=== PATIENT | female | born 1975 | race Caucasian/White ===

== ENCOUNTER 2016-09-15 10:33 | Outpatient (CLI) | payer OTHER | END 2016-09-15 10:34 | disposition home or self-care (01) | DX: R10.9 Unspecified abdominal pain (principal) ==

== ENCOUNTER 2016-10-07 10:35 | Emergency (ER) | payer OTHER ==
[2016-10-07] MEDS ORDERED: HYOSCYAMINE SL 0.125 MG TABLET SL STA (12:57)
[2016-10-07] MEDS ORDERED: HYDROcod/ACETAM 5/325 MG TABLET PO STA (13:40)
== END 2016-10-07 13:51 | disposition home or self-care (01) ==
DX: R10.84 Generalized abdominal pain (principal); R19.7 Diarrhea, unspecified
CPT/HCPCS: 36415; 80053; 83690; 85025; 99283; A9270

== ENCOUNTER 2016-10-17 09:29 | Outpatient (CLI) | payer OTHER | END 2016-10-17 09:30 | disposition home or self-care (01) | DX: R92.1 Mammographic calcification found on diagnostic imaging of breast (principal) ==

== ENCOUNTER 2016-10-23 12:19 | Outpatient (CLI) | payer OTHER ==
[2016-10-23] MEDS ORDERED: BUPIVACAINE 0.25%-EPI 1:200000 PF 30 ML VIAL SUBQ ONE (13:55)
[2016-10-23] MEDS ORDERED: BUFFERED LIDOCAINE 10 ML SYRINGE IU ONE (13:55)
== END 2016-10-23 12:20 | disposition home or self-care (01) ==
DX: R92.1 Mammographic calcification found on diagnostic imaging of breast (principal)

== ENCOUNTER 2017-04-28 17:07 | Outpatient (CLI) | payer OTHER | END 2017-04-28 17:08 | disposition home or self-care (01) | LOC: LAB 17:07 | PROVIDERS: ATTEND Family Medicine | DX: R07.9 Chest pain, unspecified (principal) | CPT/HCPCS: 36415; 84484; 85379 ==

== ENCOUNTER 2017-05-05 14:08 | Outpatient (CLI) | payer OTHER ==
--- NOTE | 2017-05-05 19:22 | Mammography Report ---
DIGITAL BILATERAL DIAGNOSTIC MAMMOGRAPHY: 05/05/2017 COMPARISON: 10/23/2016, 02/15/2016, 02/01/2016, 01/04/2015. TECHNIQUE: Bilateral CC and MLO views with additional magnification views of the left breast. FINDINGS: The breast tissue is heterogeneously dense. There is a stereotactic biopsy clip in the left upper outer quadrant adjacent to faint punctate calcifications. No dominant mass, architectural distortion, skin thickening, or suspicious new calcifications. IMPRESSION: STATUS POST LEFT STEREOTACTIC BIOPSY FOR BENIGN CALCIFICATIONS. NO SIGNIFICANT NEW FINDINGS. BI-RADS 2, BENIGN. SUGGEST FOLLOWUP BILATERAL MAMMOGRAPHY IN 1 YEAR. STANDARD QUALIFYING STATEMENTS 1. This examination was reviewed with the aid of Computer-Aided Detection (CAD). 2. A negative or benign imaging report should not delay biopsy if clinically suspicious findings are present. Consider surgical consultation if warranted. More than 5% of cancers are not identified by imaging. 3. Dense breasts may obscure an underlying neoplasm. JOB #: [id number] EXT JOB #: [id number] GARRY
== END 2017-05-05 14:09 | disposition home or self-care (01) ==
LOC: DI 14:08
PROVIDERS: ATTEND Family Medicine
DX: R92.1 Mammographic calcification found on diagnostic imaging of breast (principal); Z98.890 Other specified postprocedural states
CPT/HCPCS: 77066

== ENCOUNTER 2017-09-05 07:58 | Emergency (ER) | payer OTHER ==
[2017-09-05 08:08] VITALS: BP 113/69
--- NOTE | 2017-09-05 08:35 | ED Physician Documentation ---
PD HPI OPHTHO - Stated complaint Stated Complaint: RT EYE PX - Chief complaint Chief Complaint: Heent - History obtained from History obtained from: Patient - History of Present Illness Timing - onset: How many days ago (2) Timing - duration: Days (2) Timing - details: Gradual onset, Still present Location: Right Quality / character: Aching, Throbbing, Sharp Associated symptoms: Redness, Tearing, Discharge, FB sensation (mild), Headache. No: Matting, Decreased vision, Loss of vision Contributing factors: Other (has a history of herpes) Similar symptoms before: Diagnosis (occular herpes) Recently seen: Not recently seen - Additional information Additional information: 42-year-old female developed typical symptoms of eye pain drainage and pressure that she has had with herpes keratitis. She has no change in her vision she does have a bit of a headache and the uncomfortableness of pressure in her eye all typical symptoms she has had previously over the past 20 years for recurrent episodes. She was unable to secure a referral to the sugarcane planter yesterday so she started on Valtrex. She has had 2 doses. Review of Systems Constitutional: denies: Fever Eyes: reports: Photophobia, Discharge, Irritation. denies: Loss of vision, Decreased vision Ears: denies: Ear pain Nose: denies: Rhinorrhea / runny nose, Congestion Throat: denies: Sore throat Respiratory: denies: Cough GI: denies: Vomiting PD PAST MEDICAL HISTORY - Past Medical History Cardiovascular: None Respiratory: None Endocrine/Autoimmune: None GI: Other : None HEENT: Other Psych: Depression, Anxiety, Post traumatic stress disorder Musculoskeletal: None Derm: None - Past Surgical History Past Surgical History: Yes General: EGD Ortho: Knee replacement, Other HEENT: Tonsil/Adenoidectomy - Present Medications Home Medications: Ambulatory Orders Medication Instructions Recorded Confirmed Venlafaxine ER [Effexor ER] 37.5 mg PO DAILY 03/22/13 09/05/17 Ibuprofen 800 mg PO Q6HR PRN 06/12/15 09/05/17 Lorazepam [Ativan] 1 mg PO QPM PRN 06/12/15 09/05/17 Valacyclovir HCl [Valtrex] 500 mg PO DAILY 10/07/16 09/05/17 Trifluridine [Viroptic] 1 drops RIGHTEYE Q4HR #1 bottle 09/05/17 Valacyclovir HCl [Valtrex] 1,000 mg PO BID #14 tablet 09/05/17 - Allergies Allergies/Adverse Reactions: Allergies Allergy/AdvReac Type Severity Reaction Status Date / Time meperidine HCl * Allergy Intermediate Respiratory Verified 09/05/17 08:08 [From Demerol] morphine Allergy Intermediate Respiratory Verified 09/05/17 08:08 Sulfa (Sulfonamide Allergy Intermediate Respiratory Verified 09/05/17 08:08 Antibiotics) - Social History Does the pt smoke?: No Smoking Status: Never smoker Does the pt drink ETOH?: No Does the pt have substance abuse?: No - Immunizations Immunizations are current?: Yes - POLST Patient has POLST: No PD ED PE NORMAL - Vitals Vital signs reviewed: Yes (Normal) - General General: Alert and oriented X 3, No acute distress, Well developed/nourished - HEENT HEENT: Atraumatic, PERRL, EOMI - Neck Neck: Supple, no meningeal sign - Respiratory Respiratory: No respiratory distress - Derm Derm: Normal color, Warm and dry, No rash - Extremities Extremities: No deformity, No edema PD ED PE EXPANDED - Eyes Eyes: Visual acuity - see nn, PERRL, Injected conj/sclera, Anterior chambers clear. 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 She does not have a full course and she has previously seen the sugarcane planter daily when she has had this infection. She was not able to secure her referral and today we will refill her Valtrex start her on Viroptic as well and refer her to the sugarcane planter. Departure - Departure Disposition: 01 Home, Self Care Clinical Impression: Herpes ocular Condition: Stable Instructions: ED Herpes Keratitis Follow-Up: Scheidt,Judye A, DO [Primary Care Provider] - Nilay Almaguer MD [Provider Admit Priv/Credential] - Prescriptions: Trifluridine [Viroptic] 1 drops RIGHTEYE Q4HR #1 bottle Valacyclovir HCl [Valtrex] 1,000 mg PO BID #14 tablet
== END 2017-09-05 09:09 | disposition home or self-care (01) ==
LOC: ED 07:58
DX: B02.33 Zoster keratitis (principal)
CPT/HCPCS: 99283

== ENCOUNTER 2017-09-10 08:34 | Outpatient (CLI) | payer OTHER ==
[2017-09-10 09:36] LABS: BASOPHILS # (AUTO) 0.1 10^3/uL (0.0-0.1); BASOPHILS % (AUTO) 1.4 %; EOSINOPHILS # (AUTO) 0.1 10^3/uL (0.0-0.7); EOSINOPHILS % (AUTO) 1.5 %; HGB - HEMOGLOBIN 14.1 g/dL (12.0-16.0); LYMPHOCYTES # (AUTO) 1.1 10^3/uL (1.5-3.5); LYMPHOCYTES % (AUTO) 29.1 %; MEAN CORPUSCULAR HEMOGLOBIN 32.4 pg (27.0-31.0); MEAN CORPUSCULAR HGB CONC 34.4 g/dL (32.0-36.0); MEAN CORPUSCULAR VOLUME 94.1 fL (81.0-99.0); MEAN PLATELET VOLUME 8.4 fL (7.9-10.8); MONOCYTES # (AUTO) 0.3 10^3/uL (0.0-1.0); MONOCYTES % (AUTO) 8.4 %; NEUTROPHILS # (AUTO) 2.3 10^3/uL (1.5-6.6); NEUTROPHILS % (AUTO) 59.6 %; PLT - PLATELET COUNT 250 10^3/uL (130-450); RED BLOOD COUNT 4.35 10^6/uL (4.20-5.40); WHITE BLOOD COUNT 3.9 x10^3/uL (4.8-10.8)
== END 2017-09-10 08:35 | disposition home or self-care (01) ==
LOC: LAB 08:34
PROVIDERS: ATTEND Family Medicine
DX: M79.676 Pain in unspecified toe(s) (principal)
CPT/HCPCS: 36415; 84550; 85025; 85651; 86140

== ENCOUNTER 2017-10-01 09:06 | Outpatient (CLI) | payer OTHER ==
--- NOTE | 2017-10-01 14:18 | XRAY Report ---
TWO VIEW RIGHT FOOT: 10/01/2017 CLINICAL INDICATION: Toe pain. FINDINGS: AP and lateral views of the right foot demonstrate no evidence of fracture. Plantar calcaneal spurring is present. No foreign body is seen in the soft tissues. IMPRESSION: NO EVIDENCE OF FRACTURE. TD: 10/01/2017 14:17
== END 2017-10-01 09:07 | disposition home or self-care (01) ==
LOC: DI 09:06
PROVIDERS: ATTEND Family Medicine
DX: M79.674 Pain in right toe(s) (principal)

== ENCOUNTER 2018-03-24 08:00 | Outpatient (CLI) | payer OTHER | END 2018-03-24 08:01 | disposition home or self-care (01) | LOC: LAB.WCP 08:00 | PROVIDERS: ATTEND Family Medicine | DX: R19.7 Diarrhea, unspecified (principal) | CPT/HCPCS: 81599; 83630; 87045; 87046; 87177; 87209; 87329; 87493 ==

== ENCOUNTER 2018-04-28 10:07 | Emergency (ER) | payer OTHER ==
--- NOTE | 2018-04-28 10:59 | XRAY Report ---
Reason: chest tightness Procedure Date: 04/28/2018 Accession Number: [id number] / [id number] Procedure: XR - Chest 2 View X-Ray CPT Code: 00876 FULL RESULT: EXAM: CHEST RADIOGRAPHY EXAM DATE: 04/28/2018 10:47 AM. CLINICAL HISTORY: Chest tightness. COMPARISON: 04/27/2010. TECHNIQUE: 2 views. FINDINGS: Lungs/Pleura: No focal opacities evident. No pleural effusion. No pneumothorax. Normal volumes. Mediastinum: Heart and mediastinal contours are unremarkable. Other: Stable mild chronic lower thoracic compression deformity. IMPRESSION: No acute cardiopulmonary abnormality. RADIA
[2018-04-28 11:35] LABS: BASOPHILS # (AUTO) 0.1 10^3/uL (0.0-0.1); EOSINOPHILS # (AUTO) 0.1 10^3/uL (0.0-0.7); EOSINOPHILS % (AUTO) 2.2 %; HGB - HEMOGLOBIN 14.5 g/dL (12.0-16.0); LYMPHOCYTES # (AUTO) 1.6 10^3/uL (1.5-3.5); LYMPHOCYTES % (AUTO) 31.4 %; MEAN CORPUSCULAR HEMOGLOBIN 31.7 pg (27.0-31.0); MEAN CORPUSCULAR HGB CONC 33.9 g/dL (32.0-36.0); MEAN CORPUSCULAR VOLUME 93.7 fL (81.0-99.0); MEAN PLATELET VOLUME 8.3 fL (7.9-10.8); MONOCYTES # (AUTO) 0.4 10^3/uL (0.0-1.0); MONOCYTES % (AUTO) 8.3 %; NEUTROPHILS # (AUTO) 2.9 10^3/uL (1.5-6.6); NEUTROPHILS % (AUTO) 57.1 %; PLT - PLATELET COUNT 279 10^3/uL (130-450); RED BLOOD COUNT 4.57 10^6/uL (4.20-5.40); RED CELL DISTRIBUTION WIDTH 13.7 % (12.0-15.0); WHITE BLOOD COUNT 5.1 x10^3/uL (4.8-10.8)
[2018-04-28 11:49] LABS: ALBUMIN 4.3 g/dL (3.2-5.5); ALBUMIN/GLOBULIN RATIO 1.6 (1.0-2.2); BILIRUBIN,TOTAL 0.8 mg/dL (0.2-1.0); CALCIUM 9.1 mg/dL (8.5-10.3); CREATININE 0.5 mg/dL (0.4-1.0)
[2018-04-28] MEDS ORDERED: LACTATED RINGERS 1,000 ML IV STA (12:22)
[2018-04-28] MEDS ORDERED: SODIUM CHLORIDE 0.9% 1,000 ML IV ONE (12:22)
[2018-04-28] MEDS ORDERED: HYOSCYAMINE SL 0.125 MG TABLET SL STA (12:22)
--- NOTE | 2018-04-28 12:25 | ED Physician Documentation ---
PD HPI ABD PAIN - Stated complaint Stated Complaint: LOW BP/HEART RACING ABX PX - Chief complaint Chief Complaint: Cardiac - History obtained from History obtained from: Patient - History of Present Illness Timing - onset: Other (This is a 43-year-old woman who since a laparoscopy 3 years ago for a mobile cecum has had ongoing daily diarrhea with central abdominal pain. It is not related to eating. She has tried gluten-free and lactose-free diets without relief. Generally worsening. She failed a colonoscopy due to lack of sedation and has had stool studies including O&P and Giardia studies which were negative. She has daily diarrhea. The diarrhea does improve with Imodium but actually makes her constipated then. At times it is so severe that she has to stop what she is doing and curl up in a ball. There is no blood in the diarrhea. She has had an upper endoscopy which per her has been negative. Over the last few days the pain has been worse and she has had an unintended weight loss of 10-15 pounds over the last month. Prior to that had lost quite a bit of weight but that was on purpose.) - Additional information Additional information: She has been dizzy over the last few days with orthostatic changes and blurry vision. Review of Systems Ten Systems: 10 systems reviewed and negative Constitutional: reports: Weight Loss. denies: Fever, Chills Respiratory: denies: Dyspnea, Cough GI: reports: Abdominal Pain, Diarrhea. denies: Nausea, Vomiting, Hematemesis, Bloody / black stool PD PAST MEDICAL HISTORY - Past Medical History Cardiovascular: None Respiratory: None Endocrine/Autoimmune: None GI: Other : None HEENT: Other Psych: Depression, Anxiety, Post traumatic stress disorder Musculoskeletal: None Derm: None - Past Surgical History Past Surgical History: Yes General: EGD Ortho: Knee replacement, Other HEENT: Tonsil/Adenoidectomy - Present Medications Home Medications: Ambulatory Orders Medication Instructions Recorded Confirmed Venlafaxine ER [Effexor ER] 37.5 mg PO DAILY 03/22/13 09/05/17 Ibuprofen 800 mg PO Q6HR PRN 06/12/15 09/05/17 Lorazepam [Ativan] 1 mg PO QPM PRN 06/12/15 09/05/17 Valacyclovir HCl [Valtrex] 500 mg PO DAILY 10/07/16 09/05/17 Trifluridine [Viroptic] 1 drops RIGHTEYE Q4HR #1 bottle 09/05/17 Valacyclovir HCl [Valtrex] 1,000 mg PO BID #14 tablet 09/05/17 Hyoscyamine Sulfate [Levsin-Sl] 0.125 mg SL Q4H PRN #20 tab.subl 04/28/18 - Allergies Allergies/Adverse Reactions: Allergies Allergy/AdvReac Type Severity Reaction Status Date / Time meperidine HCl * Allergy Intermediate Respiratory Verified 09/05/17 08:08 [From Demerol] morphine Allergy Intermediate Respiratory Verified 09/05/17 08:08 Sulfa (Sulfonamide Allergy Intermediate Respiratory Verified 09/05/17 08:08 Antibiotics) - Social History Does the pt smoke?: No Smoking Status: Never smoker Does the pt drink ETOH?: No Does the pt have substance abuse?: No - Immunizations Immunizations are current?: Yes - POLST Patient has POLST: No PD ED PE NORMAL - Vitals Vital signs reviewed: Yes - General General: Alert and oriented X 3, No acute distress - Cardiac Cardiac: RRR, No murmur - Respiratory Respiratory: No respiratory distress, Clear bilaterally - Abdomen Abdomen: Normal bowel sounds, Soft, Non tender - Derm Derm: No rash - Extremities Extremities: No edema, No calf tenderness / cord - Neuro Neuro: Alert and oriented X 3, Normal speech Results - Vitals Vitals: Vital Signs - 24 hr 04/28/18 04/28/18 04/28/18 10:14 12:41 14:00 Temperature 36.5 C Heart Rate 74 75 90 Respiratory 16 18 16 Rate Blood Pressure 116/66 116/84 H 116/75 O2 Saturation 100 100 100 Oxygen O2 Source Room air - EKG (time done) 1020 Rate: Rate (enter#) (72) Rhythm: NSR Shirley: Normal Intervals: Normal SD QRS: Normal Ischemia: Normal ST segments Computer interpretation: Agree with computer - Labs Labs: Laboratory Tests 04/28/18 04/28/18 04/28/18 10:49 10:49 10:49 WBC 5.1 RBC 4.57 Hgb 14.5 Hct 42.8 MCV 93.7 MCH 31.7 H MCHC 33.9 RDW 13.7 Plt Count 279 MPV 8.3 Neut # (Auto) 2.9 Lymph # (Auto) 1.6 [place] # (Auto) 0.4 Eos # (Auto) 0.1 Baso # (Auto) 0.1 Absolute Nucleated RBC 0.00 Nucleated RBC % 0.1 Sodium 135 Potassium 3.5 Chloride 103 Carbon Dioxide 22 Anion Gap 10.0 BUN 13 Creatinine 0.5 Estimated GFR (MDRD) 134 Glucose 87 Calcium 9.1 Total Bilirubin 0.8 AST 20 ALT 17 Alkaline Phosphatase 47 Troponin I < 0.04 Total Protein 7.0 Albumin 4.3 Globulin 2.7 Albumin/Globulin Ratio 1.6 Lipase 49 Urine Color Urine Clarity Urine pH Ur Specific [place] Urine Protein Urine Glucose (UA) Urine Ketones Urine Occult Blood Urine Nitrite Urine Bilirubin Urine Urobilinogen Ur Leukocyte Esterase Ur Microscopic Review Urine Culture Comments 04/28/18 13:55 WBC RBC Hgb Hct MCV MCH MCHC RDW Plt Count MPV Neut # (Auto) Lymph # (Auto) [place] # (Auto) Eos # (Auto) Baso # (Auto) Absolute Nucleated RBC Nucleated RBC % Sodium Potassium Chloride Carbon Dioxide Anion Gap BUN Creatinine Estimated GFR (MDRD) Glucose Calcium Total Bilirubin AST ALT Alkaline Phosphatase Troponin I Total Protein Albumin Globulin Albumin/Globulin Ratio Lipase Urine Color LT. YELLOW Urine Clarity CLEAR Urine pH 6.0 Ur Specific [place] <=1.005 Urine Protein NEGATIVE Urine Glucose (UA) NEGATIVE Urine Ketones NEGATIVE Urine Occult Blood NEGATIVE Urine Nitrite NEGATIVE Urine Bilirubin NEGATIVE Urine Urobilinogen 0.2 (NORMAL) Ur Leukocyte Esterase NEGATIVE Ur Microscopic Review NOT INDICATED Urine Culture Comments NOT INDICATED - Rads (name of study) CT A/P Radiology: EMP read contemporaneously (T11 Schmorl's node otherwise negative) PD MEDICAL DECISION MAKING - ED course ED course: 43-year-old woman with acute on chronic abdominal pain, the pattern seems most likely to be IBS. Her diagnostics were negative and feeling better for a while after Levsin. - Sepsis Event Vital Signs: Vital Signs - 24 hr 04/28/18 04/28/18 04/28/18 10:14 12:41 14:00 Temperature 36.5 C Heart Rate 74 75 90 Respiratory 16 18 16 Rate Blood Pressure 116/66 116/84 H 116/75 O2 Saturation 100 100 100 Oxygen O2 Source Room air Departure - Departure Disposition: 01 Home, Self Care Clinical Impression: Abdominal pain Qualifiers: Abdominal location: generalized Qualified Code(s): R10.84 - Generalized abdominal pain Condition: Good Record reviewed to determine appropriate education?: Yes Instructions: ED Abdominal Pain Unkn Cause Prescriptions: Hyoscyamine Sulfate [Levsin-Sl] 0.125 mg SL Q4H PRN #20 tab.subl PRN Reason: Abdominal Pain Comments: Follow-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 Return for new or worsening symptoms.
[2018-04-28] MEDS ORDERED: IOPAMIDOL-300 50 ML VIAL ONE (12:28)
[2018-04-28] MEDS ORDERED: IOPAMIDOL-300 100 ML VIAL ONE (12:28)
[2018-04-28 14:06] LABS: BILIRUBIN,URINE NEGATIVE (NEGATIVE); GLUCOSE, URINE (UA) NEGATIVE (NEGATIVE); KETONES,URINE (UA) NEGATIVE (NEGATIVE); LEUKOCYTE ESTERASE, URINE NEGATIVE (NEGATIVE); NITRITE,URINE NEGATIVE (NEGATIVE); OCCULT BLOOD,URINE NEGATIVE (NEGATIVE); PROTEIN,URINE NEGATIVE (NEGATIVE); UROBILINOGEN,URINE 0.2 (NORMAL) E.U./dL (NORMAL)
[2018-04-28 14:08] LABS: CLARITY,URINE CLEAR (CLEAR)
[2018-04-28] MEDS ORDERED: IOPAMIDOL-300 50 ML VIAL PO ONE (14:58)
[2018-04-28] MEDS ORDERED: IOPAMIDOL-300 100 ML VIAL IVP ONE (14:58)
--- NOTE | 2018-04-28 15:05 | CT Report ---
Reason: IV and PO, central abd pain Procedure Date: 04/28/2018 Accession Number: [id number] / [id number] Procedure: CT - Abdomen/Pelvis W/ CPT Code: FULL RESULT: EXAM: CT ABDOMEN AND PELVIS EXAM DATE: 04/28/2018 02:15 PM. CLINICAL HISTORY: IV and PO, central abd pain. COMPARISONS: Abdomen pelvis CT 06/14/2015. TECHNIQUE: Routine helical CT imaging was performed through the abdomen and pelvis. IV contrast: ISOVUE 300 100mL. Enteric contrast: Yes. Reconstructions: Coronal and sagittal. In accordance with CT protocol optimization, one or more of the following dose reduction techniques were utilized for this exam: automated exposure control, adjustment of mA and/or KV based on patient size, or use of iterative reconstructive technique. FINDINGS: Lung Bases: Unremarkable. Liver: Normal contour. No masses. Gallbladder/Bile Ducts: Unremarkable. Spleen: Normal. Pancreas: Normal. Adrenal Glands: Normal. Kidneys: No urologic stones. No masses or hydronephrosis. Peritoneal Cavity/Bowel: no free fluid, free air or adenopathy. No masses or acute inflammatory process. The appendix is partly visualized and has a normal CT appearance. Pelvic Organs: the bladder and visualized pelvic organs are within normal limits. Vasculature: No aneurysms or other significant abnormality. Bones: There is a Schmorl's nodes of superior T11 with slight compression of the T11 vertebral body. IMPRESSION: There are no CT findings to suggest a cause of the patient's symptoms RADIA
[2018-04-28 15:20] LABS: HCG UR QUAL NEGATIVE
[2018-04-28 16:01] VITALS: BP 111/70
== END 2018-04-28 15:27 | disposition home or self-care (01) ==
LOC: ED 10:07
DX: R10.84 Generalized abdominal pain (principal); Z96.659 Presence of unspecified artificial knee joint
CPT/HCPCS: 36415; 71046; 74177; 80053; 81003; 81025; 83690; 84484; 85025; 93005; 99283; A9270; J7120; Q9967; 81001; 87086

== ENCOUNTER 2018-06-14 08:00 | Outpatient (CLI) | payer OTHER | END 2018-06-14 08:01 | disposition home or self-care (01) | LOC: LAB.R 08:00 | PROVIDERS: ATTEND Internal Medicine | DX: R19.7 Diarrhea, unspecified (principal) | CPT/HCPCS: 81599; 82438; 82705; 82710; 84133; 84302; 84999; 87045; 87046; 87328 ==

== ENCOUNTER 2018-06-28 10:33 | Outpatient (CLI) | payer OTHER ==
--- NOTE | 2018-06-29 14:32 | Mammography Report ---
Reason: SCREENING MAMMO Procedure Date: 06/28/2018 Accession Number: [id number] / [id number] Procedure: CHRISTIE - Screening Mammo Dig Bilat CPT Code: FULL RESULT: EXAM: Screening Mammo Dig Bilat DATE: 06/28/2018 11:07 AM CLINICAL HISTORY: Routine screening. History of benign left breast biopsy in 2017. TECHNIQUE: Bilateral CC and MLO views were obtained. COMPARISON: 05/05/2017 through 01/04/2015 FINDINGS: The breasts demonstrate heterogeneously dense fibroglandular parenchyma bilaterally. Left breast: There is a stable biopsy marker in the upper outer left breast lateral to benign concordant residual calcifications previously biopsied. There are no suspicious masses, calcifications or areas of distortion. Right breast: There are no suspicious masses, calcifications or areas of distortion. IMPRESSION: Benign findings RECOMMENDATION: Routine annual screening unless otherwise clinically indicated. BI-RADS CATEGORY 2: Benign findings STANDARD QUALIFYING STATEMENTS: 1. This examination was not reviewed with the aid of Computer-Aided Detection (CAD). 2. A negative or benign imaging report should not preclude biopsy if clinically suspicious findings are present. 3. Dense breasts may obscure an underlying neoplasm. 4. This examination was reviewed with the aid of 3D breast imaging (tomosynthesis).
== END 2018-06-28 10:34 | disposition home or self-care (01) ==
LOC: DI 10:33
DX: Z12.31 Encounter for screening mammogram for malignant neoplasm of breast (principal)
CPT/HCPCS: 77067

== ENCOUNTER 2018-11-14 08:30 | Emergency (ER) | payer OTHER ==
[2018-11-14 08:34] VITALS: BP 122/81
--- NOTE | 2018-11-14 08:43 | ED Physician Documentation ---
PD HPI HEENT - Stated complaint Stated Complaint: EAR PAIN/DIZZINESS - Chief complaint Chief Complaint: Heent - History obtained from History obtained from: Patient - History of Present Illness Timing - onset: How many days ago (few) Timing - duration: Days (few) Timing - details: Gradual onset (She had a feeling of both ears being clogged and presume there was earwax. She use Debrox and then had her daughter flush out her ears. She still has decreased hearing in today awoke with some dizziness and feeling of unable to clear her ears.), Still present Location: Right ear, Left ear Associated symptoms: Congestion. No: Fever, Cough Similar symptoms before: Diagnosis (had earwax cause this is the past) Recently seen: Not recently seen Review of Systems Constitutional: denies: Fever, Chills Ears: reports: Loss of hearing, Ear pain. denies: Tinnitus/ringing Nose: reports: Congestion. denies: Rhinorrhea / runny nose, Sinus pressure / pain Throat: denies: Sore throat Respiratory: denies: Cough : reports: Discharge (c/w yeast) PD PAST MEDICAL HISTORY - Past Medical History Cardiovascular: None Respiratory: None Endocrine/Autoimmune: None GI: Other : None HEENT: Other Psych: Depression, Anxiety, Post traumatic stress disorder Musculoskeletal: None Derm: None - Past Surgical History Past Surgical History: Yes General: EGD Ortho: Knee replacement, Other HEENT: Tonsil/Adenoidectomy - Present Medications Home Medications: Ambulatory Orders Medication Instructions Recorded Confirmed Venlafaxine ER [Effexor ER] 37.5 mg PO DAILY 03/22/13 09/05/17 Ibuprofen 800 mg PO Q6HR PRN 06/12/15 09/05/17 Lorazepam [Ativan] 1 mg PO QPM PRN 06/12/15 09/05/17 Valacyclovir HCl [Valtrex] 500 mg PO DAILY 10/07/16 09/05/17 Trifluridine [Viroptic] 1 drops RIGHTEYE Q4HR #1 bottle 09/05/17 Valacyclovir HCl [Valtrex] 1,000 mg PO BID #14 tablet 09/05/17 Hyoscyamine Sulfate [Levsin-Sl] 0.125 mg SL Q4H PRN #20 tab.subl 04/28/18 Amoxicillin 500 mg PO TID #15 capsule 11/14/18 Cetirizine [ZyrTEC] 10 mg PO DAILY #15 tablet 11/14/18 Dexamethasone [Decadron] 4 mg PO DAILY #5 tablet 11/14/18 Fluconazole [Diflucan] 150 mg PO ONCE #3 tablet 11/14/18 - Allergies Allergies/Adverse Reactions: Allergies Allergy/AdvReac Type Severity Reaction Status Date / Time meperidine HCl * Allergy Intermediate Respiratory Verified 11/14/18 08:34 [From Demerol] morphine Allergy Intermediate Respiratory Verified 11/14/18 08:34 Sulfa (Sulfonamide Allergy Intermediate Respiratory Verified 11/14/18 08:34 Antibiotics) - Social History Does the pt smoke?: No Smoking Status: Never smoker Does the pt drink ETOH?: No Does the pt have substance abuse?: No - Immunizations Immunizations are current?: Yes - POLST Patient has POLST: No PD ED PE NORMAL - Vitals Vital signs reviewed: Yes - General General: Alert and oriented X 3, No acute distress, Well developed/nourished - HEENT HEENT: PERRL, EOMI (no nystgmus), Moist mucous membranes, Pharynx benign. No: Ears normal (canals are completely clear and pink. There is fluid behind both eardrums without redness nor purulence. ) - Neck Neck: Supple, no meningeal sign, No adenopathy - Cardiac Cardiac: RRR, No murmur - Respiratory Respiratory: Clear bilaterally - Derm Derm: Normal color, Warm and dry, No rash Results - Vitals Vitals: Vital Signs - 24 hr 11/14/18 08:31 Temperature 36.2 C L Heart Rate 91 Respiratory 16 Rate Blood Pressure 122/81 H O2 Saturation 100 Oxygen O2 Source Room air PD MEDICAL DECISION MAKING - ED course Complexity details: considered differential, d/w patient Departure - Departure Disposition: 01 Home, Self Care Clinical Impression: Acute serous otitis media Qualifiers: Laterality: bilateral Recurrence: non-recurrent Qualified Code(s): H65.03 - Acute serous otitis media, bilateral Condition: Stable Record reviewed to determine appropriate education?: Yes Instructions: ED Otitis Media Serous Adult Follow-Up: Chelly Irving DO [Primary Care Provider] - Prescriptions: Amoxicillin 500 mg PO TID #15 capsule Cetirizine [ZyrTEC] 10 mg PO DAILY #15 tablet Dexamethasone [Decadron] 4 mg PO DAILY #5 tablet Fluconazole [Diflucan] 150 mg PO ONCE #3 tablet Comments: There is fluid behind both eardrums which is causing the trouble hearing. This is likely pressurized in the inner ear as well causing the dizziness. We will treat this with anti-inflammatories and antihistamines. It is possible it could be early infection so can treat it with antibiotics as well. Use antifungal to reduce chance of yeast infection. Recheck if not improving over the next several days to week. Discharge Date/Time: 11/14/18 09:10
[2018-11-14] MEDS ORDERED: AMOXICILLIN 250 MG CAPSULE PO STA (08:58)
[2018-11-14] MEDS ORDERED: DEXAMETHASONE 10 MG/ML VIAL PO STA (08:58)
[2018-11-14] MEDS ORDERED: CETIRIZINE 10 MG TABLET PO STA (08:58)
[2018-11-14] MEDS ORDERED: CHERRY SYRUP 10 ML UDC PO ONE (09:14)
== END 2018-11-14 09:10 | disposition home or self-care (01) ==
LOC: ED 08:30
DX: H65.03 Acute serous otitis media, bilateral (principal)
CPT/HCPCS: 99283; A9270

== ENCOUNTER 2018-12-16 12:01 | Outpatient (CLI) | payer OTHER ==
[2018-12-16 12:23] LABS: BASOPHILS # (AUTO) 0.1 10^3/uL (0.0-0.1); BASOPHILS % (AUTO) 1.1 %; EOSINOPHILS # (AUTO) 0.1 10^3/uL (0.0-0.7); EOSINOPHILS % (AUTO) 1.4 %; HGB - HEMOGLOBIN 14.2 g/dL (12.0-16.0); LYMPHOCYTES # (AUTO) 1.7 10^3/uL (1.5-3.5); LYMPHOCYTES % (AUTO) 31.8 %; MEAN CORPUSCULAR HEMOGLOBIN 31.1 pg (27.0-31.0); MEAN CORPUSCULAR HGB CONC 33.5 g/dL (32.0-36.0); MEAN CORPUSCULAR VOLUME 92.8 fL (81.0-99.0); MEAN PLATELET VOLUME 8.3 fL (7.9-10.8); MONOCYTES # (AUTO) 0.5 10^3/uL (0.0-1.0); MONOCYTES % (AUTO) 9.5 %; NEUTROPHILS % (AUTO) 56.2 %; PLT - PLATELET COUNT 290 10^3/uL (130-450); RED BLOOD COUNT 4.57 10^6/uL (4.20-5.40); RED CELL DISTRIBUTION WIDTH 13.6 % (12.0-15.0); WHITE BLOOD COUNT 5.4 x10^3/uL (4.8-10.8)
[2018-12-16 12:40] LABS: ALBUMIN 4.3 g/dL (3.2-5.5); ALBUMIN/GLOBULIN RATIO 1.8 (1.0-2.2); BILIRUBIN,TOTAL 0.8 mg/dL (0.2-1.0); CALCIUM 9.3 mg/dL (8.5-10.3); CREATININE 0.5 mg/dL (0.4-1.0); TOTAL PROTEIN 6.7 g/dL (6.7-8.2)
== END 2018-12-16 12:02 | disposition home or self-care (01) ==
LOC: LAB 12:01
PROVIDERS: ATTEND Family Medicine
DX: R00.2 Palpitations (principal)
CPT/HCPCS: 36415; 80053; 84443; 85025

== ENCOUNTER 2018-12-17 08:27 | Outpatient (CLI) | payer OTHER | END 2018-12-17 08:28 | disposition home or self-care (01) | LOC: DI 08:27 | PROVIDERS: ATTEND Family Medicine | DX: R00.2 Palpitations (principal) | CPT/HCPCS: 93306 ==

== ENCOUNTER 2019-01-11 11:15 | Outpatient (CLI) | payer OTHER ==
--- NOTE | 2019-01-11 13:26 | XRAY Report ---
Reason: SHORTNESS OF BREATH Procedure Date: 01/11/2019 Accession Number: [id number] / [id number] Procedure: WCP - Chest 2 View X-Ray CPT Code: 41615 FULL RESULT: EXAM: CHEST RADIOGRAPHY 2 VIEWS EXAM DATE: 01/11/2019. CLINICAL HISTORY: Shortness of breath. COMPARISON: PA and lateral chest done 04/28/2018. TECHNIQUE: PA and lateral views. FINDINGS: Lungs/Pleura: Normal vasculature. The lungs are clear. No pleural fluid or pneumothorax. Mediastinum: Normal cardiac and mediastinal contours. Bones: A old mid and lower thoracic compression fractures are unchanged. No acute osseous abnormality. Other: Punctate radiodensity in the lateral left breast is unchanged. IMPRESSION: No radiographic cardiopulmonary abnormality. No change from 04/28/2018. RADIA
== END 2019-01-11 11:16 | disposition home or self-care (01) ==
LOC: DI.WCP 11:15
PROVIDERS: ATTEND Family Medicine
DX: R06.02 Shortness of breath (principal); E87.6 Hypokalemia; R07.9 Chest pain, unspecified
CPT/HCPCS: 36415; 71046; 80048; 84484

== ENCOUNTER 2019-01-11 11:40 | Outpatient (CLI) | payer OTHER ==
[2019-01-11 18:59] LABS: CALCIUM 9.1 mg/dL (8.5-10.3); CREATININE 0.5 mg/dL (0.4-1.0)
== END 2019-01-11 11:41 | disposition home or self-care (01) ==
LOC: LAB.WCP 11:40
PROVIDERS: ATTEND Family Medicine
DX: E87.6 Hypokalemia (principal); R07.9 Chest pain, unspecified
CPT/HCPCS: 36415; 80048; 84484

== ENCOUNTER 2019-08-25 16:08 | Emergency (ER) | payer OTHER ==
[2019-08-25 16:37] LABS: BILIRUBIN,URINE NEGATIVE (NEGATIVE); GLUCOSE, URINE (UA) NEGATIVE (NEGATIVE); KETONES,URINE (UA) NEGATIVE (NEGATIVE); LEUKOCYTE ESTERASE, URINE NEGATIVE (NEGATIVE); NITRITE,URINE NEGATIVE (NEGATIVE); OCCULT BLOOD,URINE TRACE-INTA (NEGATIVE); PH,URINE 6.5 PH (5.0-7.5); PROTEIN,URINE NEGATIVE (NEGATIVE); UROBILINOGEN,URINE 0.2 (NORMAL) E.U./dL (NORMAL)
[2019-08-25 16:40] LABS: CLARITY,URINE CLEAR (CLEAR); HCG UR QUAL NEGATIVE
--- NOTE | 2019-08-25 17:03 | ED Physician Documentation ---
History of Present Illness - Stated complaint Stated Complaint: FEMALE , RT BACK PAIN, DIZZY - Chief complaint Chief Complaint: UTI - History obtained from History obtained from: Patient - History of Present Illness Pain level max: 7 Pain level now: 5 - Additonal information Additional information: 44-year-old female presents to the emergency department stating that she has had the sensation of not being able to empty her bladder completely for the past week. She states that she developed right flank pain today. No blood in the urine. She is concerned that she may have a UTI, possible pyelonephritis or possible ureteral stone. Does not have a history of kidney stones. No vomiting. Has not taken anything for the pain. Nothing makes it better or worse. Review of Systems Constitutional: denies: Fever, Chills Respiratory: denies: Cough GI: denies: Vomiting, Diarrhea Skin: denies: Rash Musculoskeletal: denies: Neck pain Neurologic: denies: Headache PD PAST MEDICAL HISTORY - Past Medical History Cardiovascular: None Respiratory: None Endocrine/Autoimmune: None GI: Other : None HEENT: Other Psych: Depression, Anxiety, Post traumatic stress disorder Musculoskeletal: None Derm: None - Past Surgical History Past Surgical History: Yes General: EGD Ortho: Knee replacement, Other HEENT: Tonsil/Adenoidectomy - Present Medications Home Medications: Ambulatory Orders Medication Instructions Recorded Confirmed Venlafaxine ER [Effexor ER] 37.5 mg PO DAILY 03/22/13 09/05/17 Ibuprofen 800 mg PO Q6HR PRN 06/12/15 09/05/17 Lorazepam [Ativan] 1 mg PO QPM PRN 06/12/15 09/05/17 Valacyclovir HCl [Valtrex] 500 mg PO DAILY 10/07/16 09/05/17 Trifluridine [Viroptic] 1 drops RIGHTEYE Q4HR #1 bottle 09/05/17 Valacyclovir HCl [Valtrex] 1,000 mg PO BID #14 tablet 09/05/17 Hyoscyamine Sulfate [Levsin-Sl] 0.125 mg SL Q4H PRN #20 tab.subl 04/28/18 Amoxicillin 500 mg PO TID #15 capsule 11/14/18 Cetirizine [ZyrTEC] 10 mg PO DAILY #15 tablet 11/14/18 Fluconazole [Diflucan] 150 mg PO ONCE #3 tablet 11/14/18 dexAMETHasone [Decadron] 4 mg PO DAILY #5 tablet 11/14/18 - Allergies Allergies/Adverse Reactions: Allergies Allergy/AdvReac Type Severity Reaction Status Date / Time meperidine HCl * Allergy Intermediate Respiratory Verified 08/25/19 16:17 [From Demerol] morphine Allergy Intermediate Respiratory Verified 08/25/19 16:17 Sulfa (Sulfonamide Allergy Intermediate Respiratory Verified 08/25/19 16:17 Antibiotics) - Social History Does the pt smoke?: No Smoking Status: Never smoker Does the pt drink ETOH?: No Does the pt have substance abuse?: No - Immunizations Immunizations are current?: Yes - POLST Patient has POLST: No PD ED PE NORMAL - Vitals Vital signs reviewed: Yes - General General: Alert and oriented X 3, No acute distress, Well developed/nourished - HEENT HEENT: Moist mucous membranes - Neck Neck: Supple, no meningeal sign - Cardiac Cardiac: RRR - Respiratory Respiratory: No respiratory distress, Clear bilaterally - Abdomen Abdomen: Soft, Non distended, Other (Mild tenderness right lower quadrant. No peritoneal signs. No rebound. No guarding.) - Back Back: No CVA TTP, No spinal TTP - Derm Derm: Warm and dry - Extremities Extremities: No edema - Neuro Neuro: Alert and oriented X 3 - Psych Psych: Normal mood, Normal affect Results - Vitals Vitals: Vital Signs - 24 hr 08/25/19 16:17 Temperature 36.6 C Heart Rate 76 Respiratory 15 Rate Blood Pressure 106/81 H O2 Saturation 100 Oxygen O2 Source Room air - Labs Labs: Laboratory Tests 08/25/19 08/25/19 16:31 17:05 WBC 8.6 RBC 3.99 L Hgb 12.8 Hct 39.0 MCV 97.7 MCH 32.1 H MCHC 32.8 RDW 13.1 Plt Count 317 MPV 9.6 Neut # (Auto) 6.0 Lymph # (Auto) 1.8 [place] # (Auto) 0.6 Eos # (Auto) 0.1 Baso # (Auto) 0.1 Absolute Nucleated RBC 0.00 Nucleated RBC % 0.0 Urine Color YELLOW Urine Clarity CLEAR Urine pH 6.5 Ur Specific [place] <=1.005 Urine Protein NEGATIVE Urine Glucose (UA) NEGATIVE Urine Ketones NEGATIVE Urine Occult Blood TRACE-INTA Urine Nitrite NEGATIVE Urine Bilirubin NEGATIVE Urine Urobilinogen 0.2 (NORMAL) Ur Leukocyte Esterase NEGATIVE Ur Microscopic Review NOT INDICATED Urine Culture Comments NOT INDICATED Urine HCG, Qual NEGATIVE - Rads (name of study) CT abdomen pelvis Radiology: Prelim report reviewed, EMP read contemporaneously PD MEDICAL DECISION MAKING - ED course Complexity details: reviewed results, re-evaluated patient, considered differential, d/w patient ED course: 44-year-old female with feelings of incomplete bladder emptying and right flank pain. Labs were ordered, CT scan ordered and urinalysis ordered. Patient will be signed out to Dr. Mathews for final disposition. Patient is well-appearing, nontoxic. Afebrile. No diarrhea. No constipation. This document was made in part using voice recognition software. While efforts are made to proofread this document, sound alike and grammatical errors may occur. Departure - Departure Clinical Impression: Flank pain Condition: Stable
[2019-08-25 17:09] LABS: BASOPHILS # (AUTO) 0.1 10^3/uL (0.0-0.1); BASOPHILS % (AUTO) 0.7 %; EOSINOPHILS # (AUTO) 0.1 10^3/uL (0.0-0.7); EOSINOPHILS % (AUTO) 1.6 %; HGB - HEMOGLOBIN 12.8 g/dL (12.0-16.0); LYMPHOCYTES # (AUTO) 1.8 10^3/uL (1.5-3.5); LYMPHOCYTES % (AUTO) 20.7 %; MEAN CORPUSCULAR HEMOGLOBIN 32.1 pg (27.0-31.0); MEAN CORPUSCULAR HGB CONC 32.8 g/dL (32.0-36.0); MEAN CORPUSCULAR VOLUME 97.7 fL (81.0-99.0); MEAN PLATELET VOLUME 9.6 fL (7.9-10.8); MONOCYTES # (AUTO) 0.6 10^3/uL (0.0-1.0); NEUTROPHILS % (AUTO) 69.5 %; PLT - PLATELET COUNT 317 10^3/uL (130-450); RED BLOOD COUNT 3.99 10^6/uL (4.20-5.40); RED CELL DISTRIBUTION WIDTH 13.1 % (12.0-15.0); WHITE BLOOD COUNT 8.6 x10^3/uL (4.8-10.8)
[2019-08-25] MEDS: KETOROLAC 60 MG/2 ML VIAL IM STA (17:22)
[2019-08-25 17:24] LABS: ALBUMIN 4.1 g/dL (3.2-5.5); ALBUMIN/GLOBULIN RATIO 1.5 (1.0-2.2); BILIRUBIN,TOTAL 0.7 mg/dL (0.2-1.0); CALCIUM 8.9 mg/dL (8.5-10.3); CREATININE 0.7 mg/dL (0.4-1.0); TOTAL PROTEIN 6.9 g/dL (6.7-8.2)
--- NOTE | 2019-08-25 17:43 | CT Report ---
Reason: R flank pain Procedure Date: 08/25/2019 Accession Number: [id number] / [id number] Procedure: CT - Abdomen/Pelvis WO CPT Code: Final Report FULL RESULT: EXAM: CT ABDOMEN AND PELVIS (CT KUB) EXAM DATE: 08/25/2019 05:16 PM. CLINICAL HISTORY: Right flank pain. COMPARISONS: ABDOMEN/PELVIS W/ 04/28/2018 2:13 PM. TECHNIQUE: Routine axial helical CT imaging was performed through the abdomen and pelvis without IV contrast. Reconstructions: Coronal and sagittal. In accordance with CT protocol optimization, one or more of the following dose reduction techniques were utilized for this exam: automated exposure control, adjustment of mA and/or KV based on patient size, or use of iterative reconstructive technique. FINDINGS: Lung Bases: Unremarkable. Right Kidney/Ureter: No stones, hydronephrosis, or hydroureter. No perinephric fat stranding. Left Kidney/Ureter: No stones, hydronephrosis, or hydroureter. No perinephric fat stranding. Other Solid Organs: Noncontrast images of the solid organs are grossly unremarkable. Gallbladder/Bile Ducts: Unremarkable. Peritoneal Cavity: No dilated or thick-walled bowel is seen. The appendix is not visualized. There is no intraperitoneal free air or free fluid. There are no enlarged mesenteric or retroperitoneal lymph nodes. Pelvic Organs: No bladder stones or wall thickening. Noncontrast images of the visualized pelvic organs are unremarkable. Vasculature: Unremarkable. Other: None. IMPRESSION: Negative noncontrast CT of the abdomen and pelvis. No urinary tract stones or obstruction. RADIA
--- NOTE | 2019-08-25 17:54 | ED Physician Documentation ---
ED Addendum - Addendum Addendum: 08/25/19 17:54 Patient signed out to me by Dr. Dahl, briefly she is a 44-year-old woman who has symptoms of urinary retention and right flank pain. CT was negative and her labs were reviewed and unremarkable. Prior to discharge given her symptoms, I also asked the nurse to do a post void bladder scan residual which at most was 33. She declined pain medications.
[2019-08-25 18:01] VITALS: BP 118/71
== END 2019-08-25 18:01 | disposition home or self-care (01) ==
LOC: ED 16:08
DX: R10.31 Right lower quadrant pain (principal); R10.813 Right lower quadrant abdominal tenderness; R33.9 Retention of urine, unspecified
CPT/HCPCS: 36415; 51798; 74176; 80053; 81001; 81003; 81025; 83690; 85025; 87086; 96372; 99284

== ENCOUNTER 2020-02-07 09:37 | Outpatient (CLI) | payer OTHER ==
--- NOTE | 2020-02-07 14:00 | XRAY Report ---
Reason: BILATERAL HIP PAIN Procedure Date: 02/07/2020 Accession Number: [id number] / [id number] Procedure: WCP - Hip BILAT CPT Code: Final Report FULL RESULT: PROCEDURE: Hip BILAT INDICATIONS: BILATERAL HIP PAIN TECHNIQUE: AP and frog-leg views of the hip were acquired. COMPARISON: None. FINDINGS: Bones: No fractures or dislocations. No suspicious bony lesions. The visualized pelvic ring appears intact. Soft tissues: No suspicious soft tissue calcifications or masses. IMPRESSION: Bilateral hip without acute radiographic abnormalities. No significant degenerative change. Reviewed by: Ankush Nunn MD on 02/07/2020 1:59 PM PDT Approved by: Ankush Nunn MD on 02/07/2020 1:59 PM PDT Station ID: [id number]
== END 2020-02-07 09:38 | disposition home or self-care (01) ==
LOC: DI.WCP 09:37
PROVIDERS: ATTEND Nurse Practitioner Family
DX: M25.552 Pain in left hip (principal); M25.551 Pain in right hip
CPT/HCPCS: 73521

== ENCOUNTER 2020-06-18 11:18 | Outpatient (CLI) | payer OTHER ==
--- NOTE | 2020-06-20 16:32 | Mammography Report ---
BILATERAL DIGITAL SCREENING MAMMOGRAM 3D/2D: 06/18/2020 CLINICAL: Routine screening. Comparison is made to exams dated: 06/29/2019 mammogram, 06/28/2018 mammogram, 05/03/2017 mammogram, 10/23/2016 stereotactic biopsy, 10/17/2016 mammogram, and 02/15/2016 mammogram - [facility]. The tissue of both breasts is heterogeneously dense. This may lower the sensitivity of mammograp hy. No significant masses, calcifications, or other findings are seen in either breast. There has been no significant interval change. IMPRESSION: NEGATIVE There is no mammographic evidence of malignancy. A 1 year screening mammogram is recommended. This exam was interpreted at Station ID: [id number]. NOTE: For mammograms, a report in lay terms will be sent to the patient. Approximately 15% of breast malignancies will not be visualized mammographically. In the management of a palpable breast mass, a negative mammogram must not discourage biopsy of a clinically suspicious lesion. Electronically Signed By: Serg cruz/izzy:06/19/2020 16:15:41 ACR BI-RADS Category 1: Negative 3341F PARENCHYMAL PATTERN: (D) - The breast(s) demonstrate(s) heterogeneously dense fibroglandular carmella graham. BI-RADS CATEGORY: (1) - 1 RECOMMENDATION: (ANNUAL) - Recommend routine annual screening mammography. [id number] 1 year screening LATERALITY: (B)
== END 2020-06-18 11:19 | disposition home or self-care (01) ==
LOC: DI.N 11:18
DX: Z12.31 Encounter for screening mammogram for malignant neoplasm of breast (principal)
CPT/HCPCS: 77063; 77067

== ENCOUNTER 2020-11-11 21:43 | Inpatient (IN) | payer OTHER ==
--- NOTE | 2020-11-11 21:54 | ED Physician Documentation ---
PD HPI CHEST PAIN - Stated complaint Stated Complaint: CP/ABD CRAMP - History obtained from History obtained from: Patient - History of Present Illness Timing - onset: How many hours ago (4) Timing - onset during: Rest Timing - details: Abrupt onset, Still present Pain level max: 10 Pain level now: 10 PD PAST MEDICAL HISTORY - Past Medical History Cardiovascular: None Respiratory: None Endocrine/Autoimmune: None GI: Other : None HEENT: Other Psych: Depression, Anxiety, Post traumatic stress disorder Musculoskeletal: None Derm: None - Past Surgical History Past Surgical History: Yes General: EGD Ortho: Knee replacement, Other HEENT: Tonsil/Adenoidectomy - Present Medications Home Medications: Ambulatory Orders Medication Instructions Recorded Confirmed Ibuprofen 800 mg PO Q6HR PRN 06/12/15 09/05/17 Lorazepam [Ativan] 1 mg PO QPM PRN 06/12/15 09/05/17 Hyoscyamine Sulfate [Levsin-Sl] 0.125 mg SL Q4H PRN #20 tab.subl 04/28/18 Cetirizine [ZyrTEC] 10 mg PO DAILY #15 tablet 11/14/18 Buspirone HCl 7.5 mg PO BID 11/11/20 cloNIDine [Catapres] 0.1 mg PO DAILY 11/11/20 Atorvastatin [Lipitor] 20 mg PO DAILY 11/12/20 Buspirone HCl 15 mg PO BID 11/12/20 11/12/20 DULoxetine [Cymbalta] 30 mg PO DAILY 11/12/20 - Allergies Allergies/Adverse Reactions: Allergies Allergy/AdvReac Type Severity Reaction Status Date / Time meperidine HCl * Allergy Intermediate Respiratory Verified 11/11/20 21:54 [From Demerol] morphine Allergy Intermediate Respiratory Verified 11/11/20 21:54 Sulfa (Sulfonamide Allergy Intermediate Respiratory Verified 11/11/20 21:54 Antibiotics) - Social History Does the pt smoke?: No Smoking Status: Never smoker Does the pt drink ETOH?: No Does the pt have substance abuse?: No - Immunizations Immunizations are current?: Yes - POLST Patient has POLST: No Results - Vitals Vitals: Vital Signs - 24 hr 11/11/20 21:50 Temperature 37.1 C Heart Rate 90 Respiratory 20 Rate Blood Pressure 124/75 O2 Saturation 100 Oxygen O2 Source Room air - Labs Labs: Laboratory Tests 11/11/20 11/11/20 21:52 21:52 WBC 6.2 RBC 4.27 Hgb 13.2 Hct 41.2 MCV 96.5 MCH 30.9 MCHC 32.0 RDW 13.3 Plt Count 311 MPV 9.5 Neut # (Auto) 2.9 Lymph # (Auto) 2.4 [place] # (Auto) 0.6 Eos # (Auto) 0.2 Baso # (Auto) 0.1 Absolute Nucleated RBC 0.00 Nucleated RBC % 0.0 Sodium 139 Potassium 3.9 Chloride 107 Carbon Dioxide 26 Anion Gap 6.0 BUN 15 Creatinine 0.6 Estimated GFR (MDRD) 108 Glucose 80 Calcium 9.2 Total Bilirubin 0.5 AST 19 ALT 18 Alkaline Phosphatase 69 Total Protein 6.4 L Albumin 3.9 Globulin 2.5 Albumin/Globulin Ratio 1.6 Lipase 56 H PD MEDICAL DECISION MAKING - ED course Complexity details: reviewed results, re-evaluated patient, considered differential, d/w patient ED course: Looking at the CT A/P, I am concerned the images represent sigmoid volvulus. I requested expedited reading from radiology. I discussed the case with Dr. Dale; he will review the images and call back. Departure - Departure Disposition: [facility] DC/Xfer Clinical Impression: Cecal volvulus Condition: Stable Discharge Date/Time: 11/12/20 01:45
[2020-11-11 22:00] LABS: BASOPHILS # (AUTO) 0.1 10^3/uL (0.0-0.1); BASOPHILS % (AUTO) 1.1 %; EOSINOPHILS # (AUTO) 0.2 10^3/uL (0.0-0.7); EOSINOPHILS % (AUTO) 3.6 %; HCT - HEMATOCRIT 41.2 % (37.0-47.0); HGB - HEMOGLOBIN 13.2 g/dL (12.0-16.0); LYMPHOCYTES # (AUTO) 2.4 10^3/uL (1.5-3.5); LYMPHOCYTES % (AUTO) 38.9 %; MEAN CORPUSCULAR HEMOGLOBIN 30.9 pg (27.0-31.0); MEAN CORPUSCULAR VOLUME 96.5 fL (81.0-99.0); MEAN PLATELET VOLUME 9.5 fL (7.9-10.8); MONOCYTES # (AUTO) 0.6 10^3/uL (0.0-1.0); MONOCYTES % (AUTO) 8.9 %; NEUTROPHILS # (AUTO) 2.9 10^3/uL (1.5-6.6); NEUTROPHILS % (AUTO) 47.2 %; PLT - PLATELET COUNT 311 10^3/uL (130-450); RED BLOOD COUNT 4.27 10^6/uL (4.20-5.40); RED CELL DISTRIBUTION WIDTH 13.3 % (12.0-15.0); WHITE BLOOD COUNT 6.2 x10^3/uL (4.8-10.8)
[2020-11-11 22:11] LABS: ALBUMIN 3.9 g/dL (3.2-5.5); ALBUMIN/GLOBULIN RATIO 1.6 (1.0-2.2); BILIRUBIN,TOTAL 0.5 mg/dL (0.2-1.0); CALCIUM 9.2 mg/dL (8.5-10.3); CREATININE 0.6 mg/dL (0.4-1.0); POTASSIUM 3.9 mmol/L (3.5-5.0); TOTAL PROTEIN 6.4 g/dL (6.7-8.2)
[2020-11-11] MEDS ORDERED: SODIUM CHLORIDE 0.9% 1,000 ML IV STA ×2 (22:17→23:54)
[2020-11-11] MEDS ORDERED: HYDROmorphone 1 MG/ML CARPUJECT IVP STA ×2 (22:17→23:54)
[2020-11-11] MEDS ORDERED: IOVERSOL 320 100 ML VIAL IVP ONE ×2 (22:35→23:32)
[2020-11-12 00:04] LABS: BILIRUBIN,URINE NEGATIVE (NEGATIVE); GLUCOSE, URINE (UA) NEGATIVE (NEGATIVE); KETONES,URINE (UA) NEGATIVE (NEGATIVE); LEUKOCYTE ESTERASE, URINE NEGATIVE (NEGATIVE); NITRITE,URINE NEGATIVE (NEGATIVE); OCCULT BLOOD,URINE NEGATIVE (NEGATIVE); PROTEIN,URINE NEGATIVE (NEGATIVE); UROBILINOGEN,URINE 0.2 (NORMAL) E.U./dL (NORMAL)
[2020-11-12 00:05] LABS: CLARITY,URINE CLEAR (CLEAR); HCG UR QUAL NEGATIVE
[2020-11-12] MEDS ORDERED: PIPERACILLIN/TAZOBACTAM 3.375 GM in SODIUM CHLORIDE 0.9% MINIBAG 100 ML IV STA (00:40)
--- NOTE | 2020-11-12 00:51 | SURGERY HX AND PHYSICAL(T) ---
Surgical History & Physical - Chief Complaint/HPI Chief Complaint: Crampy abdominal pain History of Present Illness: 45-year-old female presenting for crampy abdominal pain. Notable history for vacillating stooling for several years along with crampy abdominal pain for which she underwent historic work-up and approximately 5 years ago had cecopexy performed laparoscopically for intermittent reported volvulus. She continued to have worsening symptoms with bowel movement changes since. No significant family history. Notable past surgical history to include cecopexy for redundant right colon performed laparoscopically. Patient reports longstanding change in bowel function, denies bleeding per rectum, and also denies reflux associated symptoms. Patient does not use tobacco. Patient has a history of alcohol use but denies any associated abuse. No history of heart attack or stroke. Patient takes no systemic anticoagulation. Endoscopic history includes prior colonoscopy with no evidence of reported microscopic colitis, inflammatory bowel disease or other pathology for which she would experience loose stooling.. - PMH/PSH/Social Hx Does the pt have a hx of MRSA?: No Eyes, Ears, Nose, Throat: Other Cardiovascular: None Respiratory: None Skin: None Endocrine/Autoimmune: None Gastrointestinal: Other Urinary: None Musculoskeletal: None Psychiatric: Depression, Anxiety, Post traumatic stress disorder General: EGD Orthopedic: Knee replacement, Other Eyes Ears Nose Throat (EENT): Tonsil/Adenoidectomy Smoking Status: Never smoker Does the pt drink ETOH?: No Frequency: Occasional Does the pt have substance abuse?: No - Home Meds and Allergies Home Medications: Ibuprofen 800 mg PO Q6HR PRN 06/12/15 Lorazepam [Ativan] 1 mg PO QPM PRN 06/12/15 Buspirone HCl 7.5 mg PO 11/11/20 cloNIDine [Catapres] 0.1 mg PO 11/11/20 Allergies/Adverse Reactions: Allergies Allergy/AdvReac Type Severity Reaction Status Date / Time meperidine HCl * Allergy Intermediate Respiratory Verified 11/11/20 21:54 [From Demerol] morphine Allergy Intermediate Respiratory Verified 11/11/20 21:54 Sulfa (Sulfonamide Allergy Intermediate Respiratory Verified 11/11/20 21:54 Antibiotics) - Review of Systems Constitutional: Fatigue, Malaise, Weakness, Poor appetite Cardiac: No: AFIB, CAD, CHF, HTN Respiratory: No: Shortness of breath Gastrointestinal: Nausea, Vomiting, Abdominal pain, Other (Historic ongoing crampy abdominal pain). No: Flatus, Constipation, Diarrhea, Melena Neurological: No: Dizziness, Headache, Numbness - Vital Signs Heart Rate: 99 Blood Pressure: 116/78 Temperature: 36.9 C Respiratory Rate: 16 O2 Saturation: 99 Weight (kg): 61.235 kg Height: 1.65 m - Physical Exam General Appearance: positive: No acute distress, Alert, Mild distress Eyes Bilatera: positive: Normal inspection, PERRL, EOMI ENT: positive: ENT inspection nml Neck: positive: Nml inspection Respiratory: positive: Chest non-tender, No respiratory distress, Breath sounds nml. negative: Wheezes, Rales, Rhonchi Cardiovascular: positive: Regular rate & rhythm Abdomen: positive: Tenderness, Guarding, Rebound, Other (Positive diffuse tenderness to palpation, positive rebound and guarding, mildly distended.) Skin: positive: Color nml Extremities: positive: Non-tender, Full ROM, Nml appearance Neurologic/Psychiatric: positive: Oriented x3, CN's nml (2-12), Motor nml, Sensation nml, Mood/affect nml - Patient Review Patient Review: Problems were reviewed with the patient during this visit. Medications were reviewed with the patient during this visit. Allergies were reviewed this patient during this visit. Pertinent Tests Reviewed: All pertitent test for this patient were reviewed. - Assessment & Plan Assessment and Plan: 45-year-old female history of cecopexy hospital day #1 presenting with cecal volvulus through the emergency room. Imaging with no evidence of gross perforation however patient with distention, right colonic torsion, and imaging consistent thereof. Patient explained that cecopexy is rarely done. We will proceed with attempted laparoscopic likely open right colectomy, the latter secondary to the distorted anatomy from the cecopexy. Risks and benefits discussed. Plan going forward is as follows. (1) GI - IVF, bowel rest. GI ppx. Anticipate ileus. Opiate sparring analgesia. (2) SURGERY - colectomy with planned anastomosis, if the patient does indeed have ischemia or any other intraoperative compromise we might necessitate a stoma. Plan drainage catheter placement. (3) Renal/Lytes - continue IVF. Renal indices within normal limits. Plan Wilks catheter (4) Respiratory - O2 as necessary. Continue IS. Chest XR. Preop evaluation to also include EKG see below. (5) Heme - Will continue with DVT ppx. We will plan type and screen. (6) Cardiovascular - HD acceptable. EKG preoperatively (7) Neuro - Opiate sparring analgesia. Antispasmodics with Robaxin. Neuropathic agents. We will plan tap blocks and/or epidural. (8) PT/OT. Discussed presentation and plan at length with both the patient as well as her . Please note that voice recognition software was used to transcribe this note and inadvertent errors might persist in spite of review and editing. I am obliged to you for your attention. I am thankful to you for allowing me to participate with you in this care of this patient.
[2020-11-12] MEDS: HYDROmorphone 0.5 MG/0.5 ML SYRINGE IVP PRN ×3 (00:53→05:03)
[2020-11-12] MEDS ORDERED: SUCCINYLCHOLINE 200 MG/10 ML VIAL ONE (01:22)
[2020-11-12] MEDS ORDERED: diphenhydrAMINE INJ 50 MG/ML VIAL ONE (01:22)
[2020-11-12] MEDS ORDERED: SODIUM CHLORIDE 0.9% 20 ML ONE (01:22)
[2020-11-12] MEDS ORDERED: ROCURONIUM 50 MG/5 ML VIAL ONE ×2 (01:22→03:52)
[2020-11-12] MEDS ORDERED: ONDANSETRON 4 MG/2 ML VIAL ONE (01:22)
[2020-11-12] MEDS ORDERED: LIDOCAINE-MPF 2% 5 ML VIAL ONE (01:23)
[2020-11-12] MEDS ORDERED: PROPOFOL 200 MG/20 ML VIAL IVP ONE (01:23)
[2020-11-12] MEDS ORDERED: ROPIVACAINE 0.5% PF 20 ML AMPULE ONE (01:23)
[2020-11-12] MEDS ORDERED: fentaNYL 100 MCG/2 ML VIAL ONE ×2 (01:25→03:55)
[2020-11-12] MEDS ORDERED: MIDAZOLAM 2 MG/2 ML VIAL ONE (01:25)
[2020-11-12] MEDS ORDERED: ONDANSETRON 4 MG/2 ML VIAL IVP PRN (01:29)
[2020-11-12] MEDS ORDERED: ePHEDrine 50 MG/ML VIAL IVP PRN (01:29)
[2020-11-12] MEDS ORDERED: ATROPINE ABBOJECT 1 MG/10 ML SYRINGE IVP PRN (01:29)
[2020-11-12] MEDS ORDERED: fentaNYL 100 MCG/2 ML VIAL IVP PRN (01:29)
[2020-11-12] MEDS ORDERED: NALOXONE 0.4 MG/ML VIAL IVP PRN (01:29)
[2020-11-12] MEDS ORDERED: MORPHINE 2 MG/ML CARPUJECT IVP PRN (01:29)
[2020-11-12] MEDS ORDERED: METOCLOPRAMIDE 10 MG/2 ML VIAL IVP PRN (01:29)
--- NOTE | 2020-11-12 01:29 | ANESTHESIA ---
Pre-Anesthesia VS, & Labs - Diagnosis sigmoid volvulus - Procedure colectomy Vital Signs: Temp Pulse Resp BP Pulse Ox 36.9 C 99 16 116/78 99 11/12/20 00:58 11/12/20 00:58 11/12/20 00:58 11/12/20 00:58 11/12/20 00:58 Height: 5 ft 5 in Weight (kg): 61.235 kg Body Mass Index: 22.4 BMI Classification: Healthy weight - NPO Other (ate dinner-beef, peppers, ravioli @2100) - Is Patient ?: No - Lab Results Current Lab Results: Laboratory Tests 11/11/20 21:52: Sodium 139, Potassium 3.9, Chloride 107, Carbon Dioxide 26, Anion Gap 6.0, BUN 15, Creatinine 0.6, Estimated GFR (MDRD) 108, Glucose 80, Calcium 9.2, Total Bilirubin 0.5, AST 19, ALT 18, Alkaline Phosphatase 69, Total Protein 6.4 L, Albumin 3.9, Globulin 2.5, Albumin/Globulin Ratio 1.6, Lipase 56 H 11/11/20 21:52: WBC 6.2, RBC 4.27, Hgb 13.2, Hct 41.2, MCV 96.5, MCH 30.9, MCHC 32.0, RDW 13.3, Plt Count 311, MPV 9.5, Neut # (Auto) 2.9, Lymph # (Auto) 2.4, [place] # (Auto) 0.6, Eos # (Auto) 0.2, Baso # (Auto) 0.1, Absolute Nucleated RBC 0.00, Nucleated RBC % 0.0 Fish Bones: 11/11/20 21:52 11/11/20 21:52 Home Medications and Allergies Home Medications: Ambulatory Orders Buspirone HCl 7.5 mg PO 11/11/20 cloNIDine [Catapres] 0.1 mg PO 11/11/20 Active Medications Sodium Chloride (Normal Saline 0.9%) 1,000 mls @ 150 mls/hr IV .Q6H40M STA Stop: 11/12/20 06:33 Last Admin: 11/12/20 00:12 Dose: 150 mls/hr Documented by: Ibuprofen 800 mg PO Q6HR PRN 06/12/15 Lorazepam [Ativan] 1 mg PO QPM PRN 10/27/15 Buspirone HCl 7.5 mg PO 11/11/20 cloNIDine [Catapres] 0.1 mg PO 11/11/20 Allergies/Adverse Reactions: Allergies Allergy/AdvReac Type Severity Reaction Status Date / Time meperidine HCl * Allergy Intermediate Respiratory Verified 11/11/20 21:54 [From Demerol] morphine Allergy Intermediate Respiratory Verified 11/11/20 21:54 Sulfa (Sulfonamide Allergy Intermediate Respiratory Verified 11/11/20 21:54 Antibiotics) Anes History & Medical History - Anesthetic History Anesthesia Complications: reports: No previous complications Family history of Anesthesia Complications: Denies Family history of Malignant Hyperthermia: Denies - Medical History Cardiovascular: reports: None Pulmonary: reports: None Gastrointestinal: reports: Other Urinary: reports: None Neuro: reports: None Musculoskeletal: reports: None Endocrine/Autoimmune: reports: None Blood Disorders: reports: None Skin: reports: None Smoking Status: Never smoker Psychosocial: reports: Anxiety Other Past Medical History: ibs - Surgical History General: reports: EGD Eyes Ears Nose Throat (EENT): reports: Tonsil/Adenoidectomy Orthopedic: reports: Knee replacement, Other Exam General: Alert, Oriented x3, Cooperative Dental: WNL Mouth Openin Fingerbreadth Neck Mobility: Normal Mallampati classification: II Thyromental Distance: 4-6 cm Respiratory: Lungs clear Cardiovascular: Regular rate Abdomen: Normal bowel sounds Extremities: No clubbing Neurological: Normal gait Mental/Cognitive Status: Alert/Oriented X3 Cognitive Status: Within normal limits Plan Anesthesia Type: General, Transverse Abdominis Plane (TAP) Block Regional Block: Per Surgeon's request for Post Op pain control Consent for Procedure(s) Verified and Reviewed: Yes Code Status: Attempt Resuscitation ASA classification: 2-Mild systemic disease Is this case an emergency?: Yes
[2020-11-12 01:47] LABS: B. PARAPERTUSSIS- RESP PCR PAN NOT DETECTED; B. PERTUSSIS- RESP PCR PANEL NOT DETECTED; C. PNEUMONIAE- RESP PCR PANEL NOT DETECTED; CORONAVIRUS 229E-RESP PCR NOT DETECTED; CORONAVIRUS HKU1-RESP PCR NOT DETECTED; CORONAVIRUS NL63-RESP PCR NOT DETECTED; CORONAVIRUS OC43-RESP PCR NOT DETECTED; HUMAN METAPNEUMOVIRUS NOT DETECTED; INFLUENZA A- RESP PCR PANEL NOT DETECTED; INFLUENZA B - RESP PCR PANEL NOT DETECTED; M. PNEUMONIAE- RESP PCR PANEL NOT DETECTED; PARAINFLUENZA VIRUS 1 NOT DETECTED; PARAINFLUENZA VIRUS 2 NOT DETECTED; PARAINFLUENZA VIRUS 3 NOT DETECTED; PARAINFLUENZA VIRUS 4 NOT DETECTED; RHINOVIRUS/ENTEROVIRUS NOT DETECTED; RSV- RESP PCR PANEL NOT DETECTED; SARS-CoV-2 -RESP PCR PANEL NOT DETECTED
[2020-11-12] MEDS ORDERED: LACTATED RINGERS 1,000 ML IV SCH (02:00)
[2020-11-12] MEDS ORDERED: ACETAMINOPHEN 1,000 MG/100 ML 100 ML IV ONE (02:16)
[2020-11-12] MEDS ORDERED: DEXAMETHASONE 4 MG/ML VIAL ONE (02:58)
[2020-11-12] MEDS ORDERED: SODIUM CHLORIDE 0.9% 10 ML ONE (03:00)
[2020-11-12] MEDS ORDERED: SUGAMMADEX 200 MG/2 ML VIAL IVP ONE (04:09)
[2020-11-12] MEDS ORDERED: oxyCODONE 5 MG TABLET PO PRN (04:32)
[2020-11-12] MEDS ORDERED: IPRATROPIUM 0.2 MG/ML NEB INH PRN (04:32)
[2020-11-12] MEDS ORDERED: ALBUTEROL NEB 2.5 MG/3 ML INH PRN (04:32)
[2020-11-12] MEDS ORDERED: LACTATED RINGERS 1,000 ML IV ONE ×2 (04:37→05:05)
--- NOTE | 2020-11-12 04:42 | OPERATIVE REPORT ---
Operative Report - General Admit Date: 11/11/20 Planned Procedure: 1. Diagnostic laparoscopy, possible open 2. Laparoscopic adhesio lysis, possible open 3. Laparoscopic right colon resection, possible open 4. Laparoscopic hepatic flexure mobilization, possible open 5. Extracorporeal [id number]-ff-[id number] functional end-to-end isoperistaltic anastomosis 6. Tap block per anesthesia 7. Drain placement 8. Possible stoma Pre-Op Diagnosis: Cecal Volvulus; acute abdomen; history of cecopexy Procedure Performed: 1. Diagnostic laparoscopy 2. Laparoscopic adhesio lysis 3. Laparoscopic right colon resection 4. Laparoscopic hepatic flexure mobilization 6. Extracorporeal [id number] functional end-to-end isoperistaltic anastomosis 6. Tap block per anesthesia 7. Drain placement Post Op Diagnosis: Same; Transverse colonic volvulus as well - Procedure Note Primary Surgeon: Suyapa Secondary Surgeon: Manuel Anesthesia Provider: Jacob Anesthesia Technique: General ET tube, Regional block Pathology: 1. Terminal ileum, Cecum, Appendix, Right colon to right branch of the middle colic 2. Additional proximal margin Estimated Blood Loss (mL): 50 Drain/Tube Type: Buddy drain Indications: Acute onset abdominal pain. Cecal volvulus, history of cecopexy Findings: 1. Tranvsvers colonic volvulus 2. Cecal volvulus, no evidence of intact pexy appreciated 3. No ischemia, however significant dilated colon with obstruction 4. viable, isoperistaltic side to side, functional end to end staple anastomosis Complications: None - Other Other Information/Narrative: INDICATION: This is a 45-year-old female who presents acutely with abdominal pain, onset this afternoon. No prior similar episodes. Longstanding history of irregular bowel habits, having undergone extensive workup. 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 Workup in the emergency room included CT scan that was consistent with concerns for volvulus. Patient noted for a history of cecopexy performed laparoscopically 5 years prior. In this clinical setting with acute presenta tion and rebound and guarding, the patient was indicated to undergo operative intervention. The patient was counseled, as was her , of the need to perform likely open intervention given the gross dilatation of the colon for what was likely a right colonic/cecal volvulus to also include the transverse colon as well. This could not be something that we could temporize with endoscopic decompression and, given the timing of her symptoms, which was several hours, concerns for ischemic changes were real. OPERATIVE REPORT: Patient was taken to the operating room and placed supine on the operating table. The patient was already obtained for informed consent. The patient was referred for general endotracheal anesthesia. Wilks catheter was placed. The patient was prepped and draped in the usual sterile fashion. The patient was planned for a transversus abdominis plane block for perioperative analgesia. We proceeded with an umbilical incision for likely a hand port for suspected hybrid intervention to include laparoscopic assistance. After gaining incision sharply through periumbilical, we achieved access through the skin and subcutaneous tissue and entered the fascia safely and sharply without any inadvertent hollow viscus injury. We noted a diffusely dilated colon, so that not only the transverse colon had volvulized, but the cecum was torsed as well. These were both decompressed and noted for significant dilatation to greater than 10-12 cm. However, there were no ischemic changes and no intraabdominal spillage. We proceeded with mobilization and proceeded with a conventional right colectomy in the following fashion: Patient had historic cecopexy with associated adhesions and displacement of the colon which required extensive adhesiolysis which was performed open. We also performed open assisted decompression of the colon using a pursestring towards affording exposure to proceed with hepatic flexure laparoscopically. Thereafter once appropriate and safe exposure was achieved without any inadvertent injuries or other complicating factors, we proceeded to continue with sharp, diligent adhesiolysis to address this patient's extensive intra-abdominal adhesions using sharp, diligent electrocautery, and appropriate countertraction. This lengthened the overall time of surgery. We proceeded with division of the ileocolic vascular pedicle using a surgical stapler. Duodenum was noted and protected. Retroperitoneal structures were swept posteriorly. The right ureter was identified and protected throughout the entirety of this operative intervention. We proceeded with mobilization of the white line of Toldt. With this completed we placed the laparoscopic GelPort to proceed with the hepatic flexure mobilization laparoscopically now that the extent of open intervention had been completed and towards avoiding a large laparotomy scar. With this completed, the patient was thereafter placed in steep Trendelenburg with the right side up and we proceeded to continue with laparotomy. Again, the liver was evaluated without any evidence of metastatic disease grossly. The omentum was without any caking or studding. The small bowel, which was run, showed no sign of metastatic disease or abnormality, other than dense adhesions from the patient's recent surgery. After adhesiolysis was performed, the omentum, which was freed from the pelvis and associated adhesions, was ultimately lifted above the transverse colon and the small bowel was reflected laterally to the left upper quadrant. With this completed and the remainder of colonic mesocolon divided, we proceeded to perform the superior takedown of the hepatic flexure. Again, the duodenum and head of pancreas were noted and protected throughout the entirety of this operative procedure. Using the vessel sealer with the gastrocolic omentum already divided and the lesser sac entered, dissection was carried down towards the hepatic flexure and ultimately the hepatocolic ligament was divided, and the hepatic flexure was retracted medially to divide the final attachments using again the vessel sealer. Once the hepatic flexure was ultimately taken, we proceeded to assess for the mobility of the right colon, hepatic flexure, proximal and mid transverse colons which were all mobilized through to the distal transverse colon. With this completed, we thereafter proceeded with the anastamosis as follows. Extracorporeal Enterocolonic Anastamosis: The patient was planned for an extracorporeal stapled [id number]-rd-[id number] functional end-to-end anastomosis at this time (isoperistaltic). Once adequate length was achieved after division of the right branch of the middle colic, again, the mobilized colon was exteriorized through incision and again was felt appropriate for a zbky-ys-gynm functional end-to-end anastomosis with adequate, viable, grossly normal margins. With the small bowel and colon lying comfortably besides one another, we chose a point of proximal margin which was divided for its mesentery, [clamp-clamp, cut, tie with Vicryl ligature]. The small bowel was divided using a Linear Cutter stapler. The colon was similarly divided at a chosen distal margin. This was again divided for its mesentery, using both the [fwmky-[id number]-nas and tie process, using Vicryl ligatures]. The colon was thereafter divided using the Linear Cutter stapler as well. Again, with the small bowel and colon lying comfortably beside one another with no torsion or twisting, enterotomies were made first through the small bowel at its antimesenteric border, and thereafter similarly through the antimesenteric border of the colon as well. These areas were pink, viable and notable for healthy bleeding margins. Please see above if flourescent (ICG) angiography was used to evaluate bowel viability prior to performing the anastomosis. Once the enterotomy and colotomy was made an linear cutting stapler was inserted and once the taenia from the transverse colon was appropriately incorporated into the planned anastomotic site and mesentery was assured to be excluded from the staple line, the stapler was fired. 2 firings of the Endo CHUCK stapler were achieved. Once stapler was withdrawn, 2 crotch stitches were placed in a seromuscular fashion. With this completed, Allis clamps were used to approximate the enterotomies and these were additionally in two layers, first with a running Racine stitch. Additional reinforcement was achieved with 2-0 Vicryl stitches to imbricate the staple lines as well as reinforce closure in a Lembert fashion. Once this was completed, the abdomen was irrigated and aspirated clear with no evidence of active bleeding. Once this was completed, a stapled [id number] functional end-to-end anastomosis was widely patent and again already confirmed as stated above for viability by pink healthy mucosa with bleeding edges and noted peristalsis. With this ileocolonic anastamosis completed, after confirming the anastomosis was intact and hemostatic, we proceeded to close the extraction site as follows: 1 - Bidirectional PDS looped PDS 2 - Skin closure using skin rickey The incision was closed in the usual sterile fashion, closed with rickey. Please note this was bidirectional with looped PDS. Umbilicoplasty was performed. Patient tolerated the procedure well with no complication. A Prevena wound VAC was placed as well. Was present for the entirety of this operative intervention. All counts were correct.
[2020-11-12] MEDS ORDERED: HYDROmorphone 1 MG/ML CARPUJECT ONE (04:56)
[2020-11-12] MEDS ORDERED: KETOROLAC 15 MG/ML VIAL ONE (05:05)
--- NOTE | 2020-11-12 05:13 | ANESTHESIA POST OP EVALUATION ---
Anesthesia Post Eval - Post Anesthesia Eval Vitals: Last Vital Signs Temp 36.8 C 11/12/20 05:00 Pulse 100 11/12/20 05:10 Resp 12 11/12/20 05:10 BP 101/58 L 11/12/20 05:10 Pulse Ox 100 11/12/20 05:10 CV Function Including HR & BP: positive: Stable Pain Control: positive: Satisfactory Nausea & Vomiting: positive: Negative Mental Status: positive: Baseline Respiratory Status: Airway Patent Hydration Status: Satisfactory Anesthesia Complications: positive: None
[2020-11-12 05:36] LABS: BASOPHILS % (AUTO) 0.5 %; EOSINOPHILS # (AUTO) 0.1 10^3/uL (0.0-0.7); HCT - HEMATOCRIT 39.3 % (37.0-47.0); HGB - HEMOGLOBIN 12.5 g/dL (12.0-16.0); LYMPHOCYTES # (AUTO) 1.1 10^3/uL (1.5-3.5); MEAN CORPUSCULAR HEMOGLOBIN 31.3 pg (27.0-31.0); MEAN CORPUSCULAR HGB CONC 31.8 g/dL (32.0-36.0); MEAN CORPUSCULAR VOLUME 98.3 fL (81.0-99.0); MEAN PLATELET VOLUME 9.5 fL (7.9-10.8); MONOCYTES # (AUTO) 0.2 10^3/uL (0.0-1.0); NEUTROPHILS # (AUTO) 6.2 10^3/uL (1.5-6.6); NEUTROPHILS % (AUTO) 81.2 %; PLT - PLATELET COUNT 251 10^3/uL (130-450); RED CELL DISTRIBUTION WIDTH 13.4 % (12.0-15.0); WHITE BLOOD COUNT 7.7 x10^3/uL (4.8-10.8)
[2020-11-12] MEDS: D5NS W/20 MEQ KCL 1,000 ML IV SCH ×4 (05:42→22:48)
[2020-11-12] MEDS: CIPROFLOXACIN 400 MG/200 ML 400 MG/200 ML BAG IV SCH ×2 (05:43→17:49)
[2020-11-12] MEDS: metroNIDAZOLE 500 MG/100 ML 500 MG/100 ML BAG IV SCH ×3 (05:44→20:38)
[2020-11-12 05:49] LABS: ALBUMIN 3.3 g/dL (3.2-5.5); ALBUMIN/GLOBULIN RATIO 1.8 (1.0-2.2); BILIRUBIN,TOTAL 0.6 mg/dL (0.2-1.0); CALCIUM 7.8 mg/dL (8.5-10.3); CREATININE 0.6 mg/dL (0.4-1.0); MAGNESIUM 1.7 mg/dL (1.7-2.8); PHOSPHORUS 2.6 mg/dL (2.5-4.6); POTASSIUM 3.4 mmol/L (3.5-5.0); TOTAL PROTEIN 5.1 g/dL (6.7-8.2)
[2020-11-12] MEDS: METOCLOPRAMIDE 10 MG/2 ML VIAL IVP SCH ×3 (05:51→17:49)
[2020-11-12] MEDS: methocarbamoL 500 MG TABLET PO SCH ×3 (06:19→13:48)
[2020-11-12] MEDS: KETOROLAC 30 MG/ML VIAL IVP SCH ×2 (06:19→11:36)
[2020-11-12] MEDS ORDERED: HYDROmorphone PCA 20MG/100ML IV PRN ×2 (06:46→08:19)
[2020-11-12] MEDS ORDERED: POTASSIUM CHLORIDE 20 MEQ TABLET PO ONE (08:00)
[2020-11-12] MEDS: HYDROmorphone PCA 20MG/100ML IV PRN (08:07)
--- NOTE | 2020-11-12 08:22 | ED Physician Documentation ---
PD HPI ABD PAIN - Stated complaint Stated Complaint: CP/ABD CRAMP - Chief complaint Chief Complaint: Abd Pain - History obtained from History obtained from: Patient - History of Present Illness Timing - onset: How many hours ago (4) Timing - duration: Hours (4) Timing - details: Abrupt onset, Still present, Waxing and waning Pain level max: 10 Pain level now: 10 Quality: Cramping, Pain Location: All over / everywhere (predominantly across lower abdomen) Improved by: Other (nothing) Worsened by: Other (palpation, movement) Associated symptoms: No: Fever, Nausea, Vomiting, Diarrhea, Constipation Similar symptoms before: Has not had sx before Recently seen: Not recently seen - Additional information Additional information: c/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 patient says she has h/o IBS but this pain feels different in location, intens ity, and perseverance. She took doses of her hyosciamine and ativan without improvement. Review of Systems Constitutional: denies: Fever, Chills, Sweats Eyes: reports: Reviewed and negative Ears: reports: Reviewed and negative Nose: reports: Reviewed and negative Throat: reports: Reviewed and negative Cardiac: reports: Chest pain / pressure (brief episodes of midline lower chest pain when the abdominal pain is most severe). denies: Palpitations Respiratory: reports: Reviewed and negative GI: reports: Abdominal Pain, Diarrhea (chronic (patient says "I always have diarrhea"; this is not a new symptom)). 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 : None HEENT: Other Psych: Depression, Anxiety, Post traumatic stress disorder Musculoskeletal: None Derm: None Other Past Medical History: ibs - Past Surgical History Past Surgical History: Yes General: EGD Ortho: Other HEENT: Tonsil/Adenoidectomy - Present Medications Home Medications: Ambulatory Orders Medication Instructions Recorded Confirmed Ibuprofen 800 mg PO Q6HR PRN 06/12/15 09/05/17 Lorazepam [Ativan] 1 mg PO QPM PRN 06/12/15 09/05/17 Hyoscyamine Sulfate [Levsin-Sl] 0.125 mg SL Q4H PRN #20 tab.subl 04/28/18 Cetirizine [ZyrTEC] 10 mg PO DAILY #15 tablet 11/14/18 Buspirone HCl 7.5 mg PO BID 11/11/20 cloNIDine [Catapres] 0.1 mg PO DAILY 11/11/20 Atorvastatin [Lipitor] 20 mg PO DAILY 11/12/20 Buspirone HCl 15 mg PO BID 11/12/20 11/12/20 DULoxetine [Cymbalta] 30 mg PO DAILY 11/12/20 - Allergies Allergies/Adverse Reactions: Allergies Allergy/AdvReac Type Severity Reaction Status Date / Time meperidine HCl * Allergy Intermediate Respiratory Verified 11/11/20 21:54 [From Demerol] morphine Allergy Intermediate Respiratory Verified 11/11/20 21:54 Sulfa (Sulfonamide Allergy Intermediate Respiratory Verified 11/11/20 21:54 Antibiotics) - Social History Does the pt smoke?: No Smoking Status: Never smoker Does the pt drink ETOH?: No Does the pt have substance abuse?: No - Immunizations Immunizations are current?: Yes - POLST Patient has POLST: No PD ED PE NORMAL - Vitals Vital signs reviewed: Yes - General General: Alert and oriented X 3, Well developed/nourished, Other (obvious painful distress) - HEENT HEENT: Moist mucous membranes - Neck Neck: Supple, no meningeal sign - Cardiac Cardiac: RRR, No murmur - Respiratory Respiratory: No respiratory distress, Clear bilaterally - Abdomen Abdomen: Soft, Non distended, Other (severe tenderness to palpation across lower abdomen, moderate in upper abdomen. there is rebound tenderness of lower abdomen) - Back Back: No CVA TTP - Derm Derm: Normal color, Warm and dry - Extremities Extremities: No edema Results - Vitals Vitals: Vital Signs - 24 hr 11/11/20 21:50 Temperature 37.1 C Heart Rate 90 Respiratory 20 Rate Blood Pressure 124/75 O2 Saturation 100 Oxygen O2 Source Room air - Labs Labs: Laboratory Tests 11/11/20 11/11/20 21:52 21:52 WBC 6.2 RBC 4.27 Hgb 13.2 Hct 41.2 MCV 96.5 MCH 30.9 MCHC 32.0 RDW 13.3 Plt Count 311 MPV 9.5 Neut # (Auto) 2.9 Lymph # (Auto) 2.4 Hopkins # (Auto) 0.6 Eos # (Auto) 0.2 Baso # (Auto) 0.1 Absolute Nucleated RBC 0.00 Nucleated RBC % 0.0 Sodium 139 Potassium 3.9 Chloride 107 Carbon Dioxide 26 Anion Gap 6.0 BUN 15 Creatinine 0.6 Estimated GFR (MDRD) 108 Glucose 80 Calcium 9.2 Total Bilirubin 0.5 AST 19 ALT 18 Alkaline Phosphatase 69 Total Protein 6.4 L Albumin 3.9 Globulin 2.5 Albumin/Globulin Ratio 1.6 Lipase 56 H - Rads (name of study) CT A/P with IV contrast Radiology: Prelim report reviewed, See rad report PD MEDICAL DECISION MAKING - ED course Complexity details: reviewed results, re-evaluated patient, considered differential, d/w patient ED course: Patient had improvement with IV dilaudid but required repeat dosing. CT A/P c/w cecal volvulus. I discussed this case with Dr. Dale and he came to ED to evaluate patient, subsequently took patient to OR. Departure - Departure Disposition: [address] [facility] DC/Xfer Clinical Impression: Cecal volvulus Condition: Stable Discharge Date/Time: 11/12/20 01:45
--- NOTE | 2020-11-12 08:37 | CT Report ---
PROCEDURE: Abdomen/Pelvis W INDICATIONS: pain, tenderness across lower abdomen TECHNIQUE: After the administration of intravenous contrast, 5 mm thick sections acquired from the diaphragms to the symphysis. 2.5 mm thick coronal and sagittal reformats were acquired. Optional 10-minute delay ed imaging may be performed from the kidneys to the bladder. For radiation dose reduction, the follo wing was used: automated exposure control, adjustment of mA and/or kV according to patient size. COMPARISON: CT abdomen pelvis 08/25/2019 FINDINGS: Image quality: Excellent. ABDOMEN: Lung bases: Lung bases are clear. Heart size is normal. No pericardial effusion. Inferior ribs ar e intact. No basal pleural effusions or pneumothorax. Solid organs: Liver is normal in size and enhancement, without lacerations. Gallbladder is unremark able. Biliary system is non-dilated. Pancreas enhances normally, without transection. Spleen is no rmal in size and enhancement, without lacerations. No adrenal hematomas. Both kidneys enhance sommer lly, without hydronephrosis or lacerations. Peritoneum and bowel: Appendix is normal. No free fluid or air. Unenhanced bowel loops demonstrate a markedly dilated loop of bowel within the midline of the pelvis measuring approximately 10.5 cm in AP dimension. It appears to be separate from the left colon appendix is not visualized. Dilated loops also noted within the right hemiabdomen. Nodes and vessels: No retroperitoneal or mesenteric adenopathy. Aorta and inferior vena cava are no rmal in size and enhancement. Miscellaneous: No ventral hernias. PELVIS: Genitourinary: Bladder wall thickness is normal. Miscellaneous: No inguinal hernias or adenopathy. Bones: Pelvic ring and hip joints appear intact. Inferior endplate deformity of posterior L3 as well as superior endplate deformity at T11 with the former new since 2019. IMPRESSION: 1. Markedly dilated bowel loop within the mid abdomen, as well as dilated loops in the right hemiabdo men. It is unclear if this represents: Suggest cecum or dilated loop of small bowel. Overall appearan ce is most consistent with partial obstruction. The above findings are concordant with preliminary report. Reviewed by: Razia Evans MD on 11/12/2020 8:36 AM PDT Approved by: Razia Evans MD on 11/12/2020 8:36 AM PDT Station ID: [id number]
--- NOTE | 2020-11-12 09:00 | XRAY Report ---
PROCEDURE: Abdomen 1 View X-Ray INDICATIONS: MISSING LAP SPONGE TECHNIQUE: 1 view of the abdomen were acquired. COMPARISON: CT abdomen pelvis 11/11/2020 FINDINGS: Surgical changes and devices: Nasogastric tube is present projecting below the left hemidiaphragm. Th ere is overlying appearance of surgical drain as well as skin rickey. No surgical sponge is identifi ed. Bowel: No pneumoperitoneum. The bowel gas pattern does not demonstrate air-fluid levels as identifi ed on CT. Soft tissues: No masses; visualized solid organ contours appear normal in size. No suspicious abdom inal calcifications. Contrast is noted within the collecting system consistent with prior CT exam. Bones: No suspicious bony abnormalities. IMPRESSION: Postsurgical changes as above. No visualized surgical sponge. If concern persists, CT is recommended. Reviewed by: Razia Evans MD on 11/12/2020 8:59 AM PDT Approved by: Razia Evans MD on 11/12/2020 8:59 AM PDT Station ID: [id number]
--- NOTE | 2020-11-12 09:01 | XRAY Report ---
PROCEDURE: Chest 1 View X-Ray INDICATIONS: pre op TECHNIQUE: One view of the chest was acquired. COMPARISON: Chest x-ray 01/11/2019 FINDINGS: Surgical changes and devices: None. Lungs and pleura: No pleural effusions or pneumothorax. Lungs are clear. Mediastinum: Mediastinal contours appear normal. Heart size is normal. Bones and chest wall: No suspicious bony lesions. Overlying soft tissues appear unremarkable. IMPRESSION: No acute pulmonary process. The above findings are concordant with preliminary report. Reviewed by: Razia Evans MD on 11/12/2020 9:00 AM PDT Approved by: Razia Evans MD on 11/12/2020 9:00 AM PDT Station ID: [id number]
[2020-11-12] MEDS: HEPARIN 5,000 UNIT/ML VIAL SUBQ SCH ×2 (09:45→20:35)
[2020-11-12] MEDS: INSULIN ASPART 300 UNIT/3 ML PEN SUBQ SCH ×4 (09:46→21:03)
[2020-11-12] MEDS: polyethylene glycoL 3350 17 GM PACKET PO SCH ×2 (09:51→20:41)
[2020-11-12] MEDS: SODIUM CHLORIDE FLUSH 0.9% 10 ML SYRINGE IVP SCH ×4 (09:51→22:39)
[2020-11-12] MEDS: DOCUSATE SODIUM 100 MG CAPSULE PO SCH ×2 (09:51→20:33)
[2020-11-12] MEDS ORDERED: SODIUM CHLORIDE 0.9% 500 ML IV ONE ×2 (10:26→10:33)
--- NOTE | 2020-11-12 11:27 | PHARMACY PROGRESS NOTE ---
- Best Possible Medication History Admit Date and Time: 11/11/20 6810 Processed by: Pharmacy Medication History completed: Yes Patient Interview: Completed (Pt interviewed by Chet 11/12/20) Secondary Source(s): Pharmacy records (Pt taking venlafaxine differently than RX fill indicates. see label comments. Clonidine not started yet. ) As the person ultimately responsible for medication therapy, providers are able to order a medication from an existing home medication list in [facility] via the "Reconcile Routine" prior to Confirmation of that medication by systems support specialist. Such practice is discouraged except when the physician, in their clinical judgment, deems that a medical need exists for a medication without regard to previous use.
[2020-11-12] MEDS ORDERED: MAGNESIUM SULFATE 1 GM in SODIUM CHLORIDE 0.9% 50 ML IV ONE (12:00)
[2020-11-12] MEDS ORDERED: LORazepam 2 MG/ML VIAL IVP PRN ×3 (14:04→16:27)
[2020-11-12] MEDS: ACETAMINOPHEN 1,000 MG/100 ML 100 ML IV PRN ×2 (14:23→20:44)
[2020-11-12] MEDS: POTASSIUM CHLOR 10 MEQ/100 ML 10 MEQ/100 ML BAG IV SCH ×2 (16:54→17:04)
--- NOTE | 2020-11-12 17:24 | PROVIDER PROGRESS NOTE ---
Progress Note Subjective Postop day #1 status post below listed procedures. Emergent intervention for acute abdomen. Pain managed with FISHER EEL SPEAR. No bowel function. Remains in ICU. Anxious. Refuses Robaxin. Voiding by Wilks. Daughter at bedside. Pre-Op Diagnosis: Cecal Volvulus; acute abdomen; history of cecopexy Procedure Performed: 1. Diagnostic laparoscopy 2. Laparoscopic adhesio lysis 3. Laparoscopic right colon resection 4. Laparoscopic hepatic flexure mobilization 6. Extracorporeal vecr-ix-uitu functional end-to-end isoperistaltic anastomosis 6. Tap block per anesthesia 7. Drain placement Post Op Diagnosis: Same; Transverse colonic volvulus as well Objective Afebrile hemodynamically acceptable General Appearance: positive: No acute distress Eyes Bilateral: positive: Normal inspection ENT: positive: ENT inspection nml Neck: positive: Nml inspection Respiratory: positive: Chest non-tender, No respiratory distress, Breath sounds nml. negative: Wheezes, Rales, Rhonchi Cardiovascular: positive: Regular rate & rhythm Abdomen: positive: No distention, Other. negative: Guarding, Rebound Extremities: positive: Non-tender, Full ROM, Nml appearance Neurologic/Psychiatric: positive: Oriented x3, CN's nml (2-12) Abdominal Exam: Inspection - Erythema none; Scars with midline wound Prevena VAC in place Auscultation -hypoactive bowel sounds Palpation - Hernias none; Fluctuance none; Induration none; Scar N/A Buddy drain in place with serosanguineous discharge Impression/Plan Postoperative day #1. Status post above listed procedure. Ileus. Awaiting bowel function. (1) GI - IVF, bowel regimen, clear liquids. Awaiting bowel function. GI ppx. Anticipate ileus. Opiate sparring analgesia. (2) SURGERY - continue Buddy drain. Continue Prevena wound VAC. (3) Renal/Lytes - increase/bolus and continue IVF. Renal indices within normal limits. Replete electrolytes hyponatremia and hypomagnesemia and hypophosphatemia. (4) Respiratory - O2 as necessary. Continue IS. (5) Heme - Will continue with DVT ppx. H/H stable. (6) Cardiovascular - HD acceptable. Relative hypotension however patient asymptomatic. Mild tachycardia likely secondary to anxiety/pain (7) Neuro - Opiate sparring analgesia. Antispasmodics with Robaxin. Will hold Toradol pending serial H&H. Neuropathic agents. Continue FISHER EEL SPEAR (8) Immune/Infectious Disease - continue Cipro and Flagyl. (9) PT/OT and out of bed to chair (10) ENDOCRINOLOGY - insulin sliding scale. (11) STATUS - continue ICU level of care we will likely transfer out of the unit to [facility] tomorrow
[2020-11-12] MEDS: LORazepam 2 MG/ML VIAL IVP PRN ×2 (19:47→22:39)
[2020-11-12] MEDS: PREGABALIN 100 MG CAPSULE PO SCH (20:33)
[2020-11-12] MEDS ORDERED: NON FORMULARY MED (Atorvastatin [Lipitor] 20 MG Tablet) PO SCH (21:00)
[2020-11-12] MEDS ORDERED: BUSPIRONE HCL 15 MG PO SCH (21:00)
[2020-11-13] MEDS: METOCLOPRAMIDE 10 MG/2 ML VIAL IVP SCH ×5 (00:04→23:52)
[2020-11-13] MEDS: LORazepam 2 MG/ML VIAL IVP PRN ×5 (01:33→19:32)
[2020-11-13] MEDS: SODIUM CHLORIDE FLUSH 0.9% 10 ML SYRINGE IVP PRN ×5 (01:34→19:32)
[2020-11-13] MEDS: metroNIDAZOLE 500 MG/100 ML 500 MG/100 ML BAG IV SCH ×3 (04:27→20:45)
[2020-11-13] MEDS: ACETAMINOPHEN 1,000 MG/100 ML 100 ML IV PRN ×2 (05:03→14:35)
[2020-11-13] MEDS: D5NS W/20 MEQ KCL 1,000 ML IV SCH ×3 (05:06→18:10)
[2020-11-13] MEDS: CIPROFLOXACIN 400 MG/200 ML 400 MG/200 ML BAG IV SCH ×2 (05:30→16:51)
[2020-11-13 06:12] LABS: BASOPHILS % (AUTO) 0.5 %; EOSINOPHILS # (AUTO) 0.1 10^3/uL (0.0-0.7); EOSINOPHILS % (AUTO) 0.7 %; HCT - HEMATOCRIT 29.7 % (37.0-47.0); HGB - HEMOGLOBIN 9.2 g/dL (12.0-16.0); LYMPHOCYTES # (AUTO) 1.5 10^3/uL (1.5-3.5); LYMPHOCYTES % (AUTO) 17.9 %; MEAN CORPUSCULAR HEMOGLOBIN 30.7 pg (27.0-31.0); MEAN PLATELET VOLUME 9.5 fL (7.9-10.8); MONOCYTES # (AUTO) 0.5 10^3/uL (0.0-1.0); MONOCYTES % (AUTO) 6.4 %; NEUTROPHILS # (AUTO) 6.2 10^3/uL (1.5-6.6); NEUTROPHILS % (AUTO) 74.1 %; PLT - PLATELET COUNT 190 10^3/uL (130-450); WHITE BLOOD COUNT 8.3 x10^3/uL (4.8-10.8)
[2020-11-13 06:26] LABS: ALBUMIN 2.5 g/dL (3.2-5.5); ALBUMIN/GLOBULIN RATIO 1.3 (1.0-2.2); BILIRUBIN,TOTAL 0.7 mg/dL (0.2-1.0); CALCIUM 7.5 mg/dL (8.5-10.3); CREATININE 0.5 mg/dL (0.4-1.0); MAGNESIUM 1.7 mg/dL (1.7-2.8); PHOSPHORUS 2.3 mg/dL (2.5-4.6); POTASSIUM 3.8 mmol/L (3.5-5.0); TOTAL PROTEIN 4.5 g/dL (6.7-8.2)
[2020-11-13] MEDS: INSULIN ASPART 300 UNIT/3 ML PEN SUBQ SCH ×4 (08:00→21:52)
[2020-11-13] MEDS: polyethylene glycoL 3350 17 GM PACKET PO SCH ×2 (08:02→20:43)
[2020-11-13] MEDS: NEUTRA-PHOS 250 MG TABLET PO SCH ×2 (08:04→09:48)
[2020-11-13] MEDS: MAGNESIUM OXIDE 400 MG TABLET PO SCH ×2 (08:05→14:30)
[2020-11-13] MEDS: DOCUSATE SODIUM 100 MG CAPSULE PO SCH ×2 (08:05→20:44)
[2020-11-13] MEDS: PREGABALIN 100 MG CAPSULE PO SCH ×2 (08:06→20:44)
[2020-11-13] MEDS ORDERED: cloNIDine 0.1 MG TABLET PO SCH (09:00)
[2020-11-13] MEDS: HEPARIN 5,000 UNIT/ML VIAL SUBQ SCH ×2 (09:41→20:48)
[2020-11-13] MEDS: SODIUM CHLORIDE FLUSH 0.9% 10 ML SYRINGE IVP SCH ×3 (09:48→23:52)
--- NOTE | 2020-11-13 10:37 | PROVIDER PROGRESS NOTE ---
Progress Note Subjective Postop day #2 status post below listed procedures. Emergent intervention for acute abdomen. Pain continues to be managed with CORONER FORENSIC TECHNICIAN. No bowel function at this time. Evaluated for tachycardia. EKG and troponins ordered. Continues with voiding by Wilks. at bedside. No nausea no vomiting. Exceedingly anxious. Remains tachycardic. Eager for psychiatric medications. Pre-Op Diagnosis: Cecal Volvulus; acute abdomen; history of cecopexy Procedure Performed: 1. Diagnostic laparoscopy 2. Laparoscopic adhesio lysis 3. Laparoscopic right colon resection 4. Laparoscopic hepatic flexure mobilization 6. Extracorporeal [id number] functional end-to-end isoperistaltic anastomosis 6. Tap block per anesthesia 7. Drain placement Post Op Diagnosis: Same; Transverse colonic volvulus as well Objective Afebrile hemodynamically acceptable General Appearance: positive: No acute distress Eyes Bilateral: positive: Normal inspection ENT: positive: ENT inspection nml Neck: positive: Nml inspection Respiratory: positive: Chest non-tender, No respiratory distress, Breath sounds nml. negative: Wheezes, Rales, Rhonchi Cardiovascular: positive: Regular rate & rhythm Extremities: positive: Non-tender, Full ROM, Nml appearance Neurologic/Psychiatric: positive: Oriented x3, CN's nml (2-12) Abdominal Exam: Inspection - Erythema none; Scars with midline wound Prevena VAC in place Auscultation - positive bowel sounds Palpation - Hernias none; Fluctuance none; Induration none; Scar N/A Buddy drain in place with serosanguineous discharge Impression/Plan Postoperative day #2. Status post above listed procedure. Ileus. Awaiting bowel function. Remains tachycardic. (1) GI - IVF, bowel regimen, clear liquids. Awaiting bowel function. GI ppx. Anticipate ileus. Opiate sparring analgesia. Continue scheduled Zofran and Reglan. (2) SURGERY - continue Buddy drain. Continue Prevena wound VAC. (3) Renal/Lytes - IVF. Renal indices within normal limits. Replete electrolytes hyponatremia and hypomagnesemia and hypophosphatemia. (4) Respiratory - O2 as necessary. Continue IS. Given the patient's continued tachycardia will discuss with hospitalist service the indication to proceed with CT angio to rule out pulmonary embolism although the patient currently has no tachycardia. Chest x-ray clear. (5) Heme - Will continue with DVT ppx. H/H stable. (6) Cardiovascular - HD acceptable. Persistent tachycardia. EKG within normal limits and significant only for sinus tachycardia. Troponin thus far negative. Will order CT angio after discussion with hospitalist service. (7) Neuro - Opiate sparring analgesia. Will hold Toradol pending serial H&H. Neuropathic agents. Continue CORONER FORENSIC TECHNICIAN. Continue psychiatric meds. (8) Immune/Infectious Disease - continue Cipro and Flagyl. (9) PT/OT and out of bed to chair (10) ENDOCRINOLOGY - insulin sliding scale. (11) STATUS - continue ICU level of care we will likely transfer out of the unit to [facility] tomorrow or overnight if CT angio negative. Appreciate hospitalist service further input. Please note that voice recognition software was used to transcribe this note and inadvertent errors might persist in spite of review and editing. I am obliged to you for your attention. I am thankful to you for allowing me to participate with you in this care of this patient.
[2020-11-13] MEDS: DULoxetine 30 MG CAPSULE PO SCH (10:51)
[2020-11-13] MEDS: VENLAFAXINE ER 37.5 MG CAPSULE PO SCH (10:51)
[2020-11-13] MEDS ORDERED: SODIUM CHLORIDE 0.9% 500 ML IV PRN (15:03)
[2020-11-13] MEDS: HYDROmorphone PCA 20MG/100ML IV PRN (17:21)
--- NOTE | 2020-11-13 19:52 | CONSULTATION NOTE ---
Referring Provider Name of Referring Provider:: Dr. Flash aDle Consult Date: 11/13/20 Chief Complaint - Chief Complaint Chief Complaint: Abdominal pain History of Present Illness - Admitted From Admitted From:: Home - History Obtained From Records Reviewed: Yes History obtained from: Patient, General Surgeon, EMR - History of Present Illness HPI Comment/Other: This is a 45-year-old female with a past medical history significant for anxiety/depression, prior history of cecal volvulus who presented to our emergency department on November 11 complaining of abdominal pain. She was found to have a cecal volvulus and taken to the OR that evening for laparoscopic right colon resection with anastomosis. She was admitted to the ICU postoperatively and started on ciprofloxacin and Flagyl IV. She was initially hypotensive with systolic in the 80s but she responded well to IV fluids. She has been afebrile with a normal white count. She has been tolerating a clear liquid diet. Medicine was consulted today by general surgery due to persistent tachycardia. The patient states that she feels better each day. Reports her pain is about a 2-3 out of 10. She denies feeling anxious reports that the IV lorazepam has helped with that. She does complain of a headache which has been persistent. She stated that the past couple of days she felt a little chest tightness and pressure when getting out of bed. She had associated shortness of breath. This was not worse with inspiration. It would resolve once she would return to a seated position. She reports no dyspnea or pain at this time. She does not believe that she has had the symptoms today. She reports no prior cardiac history. Denies any palpitations, syncope, dizziness, lightheadedness. 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 Laparascopic right colon resection with anastomosis.), EGD Ortho: reports: Other (Right patella.) HEENT: reports: Tonsil/Adenoidectomy - Family & Social History Family History Comment/Other: She reports her father had a myocardial infarction at the age of 49. He had a CABG 3 years ago. She denies any other family history. Living arrangement: At home Living Situation: With spouse/s.o. Social History Notes: She lives at home with her . She is a non-smoker does not drink alcohol. 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 - POLST Patient has POLST: No Meds/Allgy - Home Medications Home Medications: Ambulatory Orders Medication Instructions Recorded Confirmed Ibuprofen 800 mg PO Q6HR PRN 06/12/15 11/12/20 Lorazepam [Ativan] 0.5 - 1 mg PO QPM PRN 06/12/15 11/12/20 Hyoscyamine Sulfate [Levsin-Sl] 0.125 mg SL Q4H PRN #20 tab.subl 04/28/18 11/12/20 Atorvastatin [Lipitor] 20 mg PO HS 11/12/20 11/12/20 Buspirone HCl 15 mg PO BID 11/12/20 11/12/20 DULoxetine [Cymbalta] 30 mg PO DAILY 11/12/20 11/12/20 Fluconazole [Diflucan] 150 mg PO 1-2XD 11/12/20 11/12/20 Venlafaxine ER [Effexor ER] 37.5 mg PO DAILY 11/12/20 11/12/20 cloNIDine [Catapres] 0.1 mg PO DAILY 11/12/20 11/12/20 - Allergies Allergies/Adverse Reactions: Allergies Allergy/AdvReac Type Severity Reaction Status Date / Time meperidine HCl * Allergy Intermediate Respiratory Verified 11/11/20 21:54 [From Demerol] morphine Allergy Intermediate Respiratory Verified 11/11/20 21:54 Sulfa (Sulfonamide Allergy Intermediate Respiratory Verified 11/11/20 21:54 Antibiotics) Review of Systems - Constitutional Constitutional: reports: Fatigue. denies: Malaise, Poor appetite - Eyes Eyes: denies: Blurred vision, Vision loss - Cardiovascular Cariovascular: reports: Chest pain, Exertional dyspnea, Decr. exercise tolerance. denies: Irregular heart rate, Palpitations, Edema, Lightheadedness, Syncope - Respiratory Respiratory: reports: SOB with exertion. denies: Cough, Sputum production, SOB at rest - Gastrointestinal Gastrointestinal: reports: Abdominal pain. denies: Diarrhea, Vomiting - Genitourinary Genitourinary: denies: Dysuria, Urgency, Hematuria - Neurological Neurological: reports: Headache. denies: General weakness, Focal weakness, Dizziness, Numbness - Psychiatric Psychiatric: denies: Anxiety - Hematologic/Lymphatic Hematologic/Lymphatic: denies: Blood clots, Bleeding tendencies - All Other Systems All Other Systems: reports: Reviewed and negative Exam - Vital Signs Reviewed Vital Signs: Yes Vital Signs: Vital Signs x48h Temp Pulse Pulse Resp BP Pulse Ox 11/13/20 19:00 106 H 16 112/74 97 11/13/20 18:00 102 H 19 108/71 100 11/13/20 17:31 36.9 C 11/13/20 17:00 96 14 108/68 98 11/13/20 16:00 107 H 14 102/56 L 95 11/13/20 15:00 109 H 13 104/64 100 11/13/20 14:00 113 H 16 104/69 96 11/13/20 13:00 112 H 16 103/69 98 11/13/20 12:30 37.2 C 102 H 13 99 11/13/20 12:00 37.2 C 113 H 12 93/63 95 - Physical Exam General Appearance: positive: No acute distress, Alert Eyes Bilateral: positive: Normal inspection, Conjunctivae nml ENT: positive: ENT inspection nml, No signs of dehydration. negative: Dry mucous membranes Neck: positive: Nml inspection Respiratory: positive: No respiratory distress. negative: Wheezes, Rales Cardiovascular: positive: No murmur, Tachycardia. negative: Irregularly irregular, Bradycardia, Systolic murmur Abdomen: positive: No distention, Tenderness (Minimal tenderness in the right upper and right lower quadrant as well as left lower quadrant. Wound VAC in place.). negative: Guarding, Rebound Skin: positive: Warm, Dry Extremities: positive: Full ROM, No pedal edema. negative: Calf tenderness, Haritha's sign/cords Neurologic/Psychiatric: positive: Oriented x3, Motor nml. negative: Disoriented to person, Disoriented to place, Disoriented to time Conclusion/Plan - Diagnosis Diagnosis: 1) Sinus tachycardia. 2) Chest pressure/dyspnea. 3) Anxiety. 4) Cecal volvulus s/p right colon resection with anastamosis - Plan Plan: I suspect that her sinus tachycardia is physiologic response to her recent surgical intervention. She states her pain and anxiety are well controlled but these could also be contributing factors. Although she has no more chest pain or dyspnea, she reports the symptoms a couple of days ago. If her tachycardia persists into tomorrow, will consider CT angiogram to evaluate for pulmonary embolism as a potential cause. We will check a TSH in the morning. Her initial EKG reveals sinus rhythm without any ischemic changes. Troponins yesterday were unremarkable as well. Will consider repeating an EKG tomorrow and an echocardiogram if her tachycardia persists. Agree with continuing IV hydration and antibiotics. Continue with current pain regimen. Thank you for this consult. Please feel free to contact the hospitalist team at any time. - Lab Results Lab results reviewed: Yes Fish Bones: 11/13/20 06:00 11/13/20 06:00 - Diagnostic Imaging Results Diagnostic Imaging Results: positive: Final report reviewed - EKG Results EKG Interpreted Independently: Yes EKG Findings: EKG shows a sinus rhythm without any ST segment changes. No significant changes compared to prior EKG.
[2020-11-14] MEDS: LORazepam 2 MG/ML VIAL IVP PRN ×6 (00:12→20:42)
[2020-11-14] MEDS: SODIUM CHLORIDE FLUSH 0.9% 10 ML SYRINGE IVP PRN ×3 (00:12→06:16)
[2020-11-14] MEDS: D5NS W/20 MEQ KCL 1,000 ML IV SCH ×3 (00:17→17:28)
[2020-11-14] MEDS ORDERED: IOVERSOL 320 100 ML VIAL IVP ONE ×3 (01:22→03:16)
[2020-11-14] MEDS ORDERED: HEPARIN 5,000 UNIT/ML VIAL SUBQ SCH (02:00)
[2020-11-14] MEDS: CIPROFLOXACIN 400 MG/200 ML 400 MG/200 ML BAG IV SCH ×2 (05:34→17:30)
[2020-11-14 06:11] LABS: BASOPHILS % (AUTO) 0.3 %; EOSINOPHILS # (AUTO) 0.1 10^3/uL (0.0-0.7); EOSINOPHILS % (AUTO) 1.1 %; HCT - HEMATOCRIT 29.4 % (37.0-47.0); HGB - HEMOGLOBIN 9.2 g/dL (12.0-16.0); LYMPHOCYTES # (AUTO) 1.4 10^3/uL (1.5-3.5); LYMPHOCYTES % (AUTO) 14.6 %; MEAN CORPUSCULAR HEMOGLOBIN 31.1 pg (27.0-31.0); MEAN CORPUSCULAR HGB CONC 31.3 g/dL (32.0-36.0); MEAN CORPUSCULAR VOLUME 99.3 fL (81.0-99.0); MEAN PLATELET VOLUME 9.8 fL (7.9-10.8); MONOCYTES # (AUTO) 0.6 10^3/uL (0.0-1.0); NEUTROPHILS # (AUTO) 7.2 10^3/uL (1.5-6.6); NEUTROPHILS % (AUTO) 77.7 %; PLT - PLATELET COUNT 184 10^3/uL (130-450); RED BLOOD COUNT 2.96 10^6/uL (4.20-5.40); RED CELL DISTRIBUTION WIDTH 14.1 % (12.0-15.0); WHITE BLOOD COUNT 9.3 x10^3/uL (4.8-10.8)
[2020-11-14] MEDS: METOCLOPRAMIDE 10 MG/2 ML VIAL IVP SCH ×3 (06:16→17:32)
[2020-11-14] MEDS: metroNIDAZOLE 500 MG/100 ML 500 MG/100 ML BAG IV SCH ×2 (06:42→13:46)
[2020-11-14 06:55] LABS: ALBUMIN 2.5 g/dL (3.2-5.5); ALBUMIN/GLOBULIN RATIO 1.2 (1.0-2.2); ALKALINE PHOSPHATASE 39 IU/L (42-121); ALT ALANINE AMINOTRANSFERASE 17 IU/L (10-60); AST ASPARTATE AMINOTRANSFERASE 19 IU/L (10-42); BILIRUBIN,TOTAL 0.5 mg/dL (0.2-1.0); BUN - BLOOD UREA NITROGEN < 5 mg/dL (6-20); CALCIUM 7.8 mg/dL (8.5-10.3); CARBON DIOXIDE - CO2 25 mmol/L (21-32); CHLORIDE 105 mmol/L (101-111); CREATININE 0.4 mg/dL (0.4-1.0); GFR - MDRD 172 (>89); GLUCOSE 123 mg/dL (70-100); MAGNESIUM 1.7 mg/dL (1.7-2.8); POTASSIUM 3.6 mmol/L (3.5-5.0); SODIUM 135 mmol/L (135-145); TOTAL PROTEIN 4.6 g/dL (6.7-8.2)
[2020-11-14] MEDS: ONDANSETRON 4 MG/2 ML VIAL IVP PRN (07:47)
[2020-11-14] MEDS: INSULIN ASPART 300 UNIT/3 ML PEN SUBQ SCH ×4 (08:06→21:43)
[2020-11-14] MEDS: SODIUM CHLORIDE FLUSH 0.9% 10 ML SYRINGE IVP SCH ×2 (08:38→17:05)
--- NOTE | 2020-11-14 08:53 | CT Report ---
PROCEDURE: ANGIO CHEST W/WO INDICATIONS: Postoperative tachycardia; concern for pulmonary embolism CONTRAST: IV CONTRAST: Optiray 320 ml: 80 PO CONTRAST: *NO PO CONTRAST TECHNIQUE: After the administration of intravenous contrast, 2 mm thick sections acquired from the pulmonary api sandra to the posterior costophrenic angles. 3-dimensional maximum intensity projection (MIP) coronal a nd sagittal reformats were then acquired through the thorax. For radiation dose reduction, the follow ing was used: automated exposure control, adjustment of mA and/or kV according to patient size. COMPARISON: 11/12/2020 chest radiograph FINDINGS: Image quality: Excellent. Pulmonary arteries: Pulmonary arteries are normal in size, and demonstrate no intraluminal filling d efects to suggest central pulmonary embolism. Lungs and pleura: Bibasilar passive atelectasis. Small bilateral pleural effusions. Mediastinum: Heart size is normal, without pericardial effusion. No mediastinal or hilar adenopathy . Thoracic aorta is normal in caliber and enhancement. Esophagus is normal in caliber, without hiat al hernia. Bones and chest wall: No suspicious bony lesions. Ribs and thoracic spine appear intact throughout. The thyroid is normal. No axillary or supraclavicular adenopathy. IMPRESSION: No findings of pulmonary embolism. Small pleural effusions with overlying atelectasis. Small volume free air in the abdomen consistent with recent abdominal surgery. No significant change from preliminary report. Reviewed by: Kayden Leon MD on 11/14/2020 8:51 AM PDT Approved by: Kayden Leon MD on 11/14/2020 8:51 AM PDT Station ID: [id number]
[2020-11-14] MEDS ORDERED: VENLAFAXINE ER 37.5 MG CAPSULE PO SCH (09:00)
[2020-11-14] MEDS ORDERED: DULoxetine 30 MG CAPSULE PO SCH (09:00)
[2020-11-14] MEDS: DULoxetine 30 MG CAPSULE PO SCH (09:47)
[2020-11-14] MEDS: VENLAFAXINE ER 37.5 MG CAPSULE PO SCH (09:47)
[2020-11-14] MEDS: DOCUSATE SODIUM 100 MG CAPSULE PO SCH ×2 (09:47→21:43)
[2020-11-14] MEDS: PREGABALIN 100 MG CAPSULE PO SCH ×2 (09:47→21:43)
[2020-11-14] MEDS: polyethylene glycoL 3350 17 GM PACKET PO SCH ×2 (09:49→21:41)
[2020-11-14] MEDS: ACETAMINOPHEN 1,000 MG/100 ML 100 ML IV PRN ×2 (09:57→16:15)
[2020-11-14] MEDS: HEPARIN 5,000 UNIT/ML VIAL SUBQ SCH ×2 (10:02→21:44)
--- NOTE | 2020-11-14 13:22 | PROVIDER PROGRESS NOTE ---
Progress Note Subjective Postoperative day #3 status post below listed procedures. Postoperative tachycardia work-up negative for acute coronary syndrome without evidence of myocardial infarction. Moreover CT angio negative for acute pulmonary embolism. Positive bowel function. at bedside. Voiding spontaneously. Denies nausea denies vomiting. Eager for transition from intravenous to oral management. Overall feeling much improved. Pre-Op Diagnosis: Cecal Volvulus; acute abdomen; history of cecopexy Procedure Performed: 1. Diagnostic laparoscopy 2. Laparoscopic adhesio lysis 3. Laparoscopic right colon resection 4. Laparoscopic hepatic flexure mobilization 6. Extracorporeal [id number] functional end-to-end isoperistaltic anastomosis 6. Tap block per anesthesia 7. Drain placement Post Op Diagnosis: Same; Transverse colonic volvulus as well Objective Afebrile hemodynamically acceptable General Appearance: positive: No acute distress Eyes Bilateral: positive: Normal inspection ENT: positive: ENT inspection nml Neck: positive: Nml inspection Respiratory: positive: Chest non-tender, No respiratory distress, Breath sounds nml. negative: Wheezes, Rales, Rhonchi Cardiovascular: positive: Regular rate & rhythm Extremities: positive: Non-tender, Full ROM, Nml appearance Neurologic/Psychiatric: positive: Oriented x3, CN's nml (2-12) Abdominal Exam: Inspection - Erythema none; Scars with midline wound Prevena VAC in place Auscultation - positive bowel sounds Palpation - Hernias none; Fluctuance none; Induration none; Scar N/A Buddy drain in place with serosanguineous discharge Impression/Plan Postoperative day #3. Status post above listed procedure. Ileus. Positive function of gastrointestinal tract. (1) GI - DC IV; continue bowel regimen, advance to regular diet. GI ppx. Opiate sparring analgesia. Continue scheduled Zofran and Reglan. (2) SURGERY - continue Buddy drain. Continue Prevena wound VAC. Likely d/c Buddy prior to discharge to home. (3) Renal/Lytes - IVF. Renal indices within normal limits. Replete electrolytes hyponatremia and hypomagnesemia and hypophosphatemia. (4) Respiratory - O2 as necessary. Continue IS. (5) Heme - Will continue with DVT ppx. H/H stable. (6) Cardiovascular - HD acceptable. Work-up without concern for acute [place], and no evidence of pulmonary embolism on CT angio. (7) Neuro - Opiate sparring analgesia. Neuropathic agents. D/C BASTING MARKER. Continue psychiatric meds. (8) Immune/Infectious Disease - continue Cipro and Flagyl. (9) PT/OT and out of bed to chair (10) ENDOCRINOLOGY - DC insulin sliding scale. (11) STATUS - likely d/c next 24/48hours. Appreciate hospitalist service further input. Please note that voice recognition software was used to transcribe this note and inadvertent errors might persist in spite of review and editing. I am obliged to you for your attention. I am thankful to you for allowing me to participate with you in this care of this patient.
[2020-11-14] MEDS: MULTIVITAMIN W/MINERALS TABLET PO SCH (17:50)
--- NOTE | 2020-11-14 19:11 | PROVIDER PROGRESS NOTE ---
Progress Note November 14, 2020 7:09 PM We were asked to see the patient in the postoperative setting yesterday for tachycardia. She is not infected, CT angiogram was negative for pulmonary embolism, not hypoxic, and we think that she had simple physiologic response to surgical stress. Over the course the day her tachycardia has slowly resolved. Pulse is 77-98 as opposed to over 100. Blood pressure is 120/75, respirations 20, 99% on room air. She is a sleepy but alert middle-aged female. at the bedside. Neck is supple. Lungs are clear to auscultation and percussion. No respiratory distress. PMI is normally placed with a regular rate and rhythm. Abdomen is tender from her incision, 1 bowel sounds audible. No rebound or guarding. Ext remities are without edema. Today's labs show normal CMP with a glucose of 123. Calcium slightly low at 7.8 but her total protein is 4.6 and albumin is 2.5. TSH is 1.8. Baseline hemoglobin for her is 13.2. She is now 9.2. White cell count is 9.3. Assessment/plan postoperative day 1 for cecal volvulus resection. We were consulted for tachycardia and that appears to be slowly resolving. No other issues to address. Thank you very much for consulting us. We will be signing off. Let us know if there is anything you can do in managing this patient. She and her are queta people
[2020-11-15] MEDS: ACETAMINOPHEN 1,000 MG/100 ML 100 ML IV PRN ×2 (00:43→06:36)
[2020-11-15] MEDS: LORazepam 2 MG/ML VIAL IVP PRN ×3 (00:43→15:37)
[2020-11-15] MEDS: metroNIDAZOLE 500 MG/100 ML 500 MG/100 ML BAG IV SCH ×3 (01:08→19:43)
[2020-11-15] MEDS: SODIUM CHLORIDE FLUSH 0.9% 10 ML SYRINGE IVP SCH ×4 (01:19→23:27)
[2020-11-15] MEDS: METOCLOPRAMIDE 10 MG/2 ML VIAL IVP SCH ×5 (01:21→23:27)
[2020-11-15] MEDS: D5NS W/20 MEQ KCL 1,000 ML IV SCH (03:54)
[2020-11-15 04:38] LABS: BASOPHILS % (AUTO) 0.5 %; EOSINOPHILS # (AUTO) 0.3 10^3/uL (0.0-0.7); EOSINOPHILS % (AUTO) 4.9 %; HGB - HEMOGLOBIN 9.2 g/dL (12.0-16.0); LYMPHOCYTES # (AUTO) 0.9 10^3/uL (1.5-3.5); LYMPHOCYTES % (AUTO) 15.5 %; MEAN CORPUSCULAR HEMOGLOBIN 30.6 pg (27.0-31.0); MEAN CORPUSCULAR HGB CONC 30.7 g/dL (32.0-36.0); MEAN CORPUSCULAR VOLUME 99.7 fL (81.0-99.0); MONOCYTES # (AUTO) 0.4 10^3/uL (0.0-1.0); MONOCYTES % (AUTO) 7.1 %; NEUTROPHILS # (AUTO) 4.1 10^3/uL (1.5-6.6); NEUTROPHILS % (AUTO) 71.7 %; PLT - PLATELET COUNT 203 10^3/uL (130-450); RED BLOOD COUNT 3.01 10^6/uL (4.20-5.40); RED CELL DISTRIBUTION WIDTH 13.8 % (12.0-15.0); WHITE BLOOD COUNT 5.7 x10^3/uL (4.8-10.8)
[2020-11-15 04:55] LABS: ALBUMIN 2.5 g/dL (3.2-5.5); ALBUMIN/GLOBULIN RATIO 1.1 (1.0-2.2); ALKALINE PHOSPHATASE 43 IU/L (42-121); ALT ALANINE AMINOTRANSFERASE 16 IU/L (10-60); AST ASPARTATE AMINOTRANSFERASE 18 IU/L (10-42); BILIRUBIN,TOTAL 0.6 mg/dL (0.2-1.0); BUN - BLOOD UREA NITROGEN < 5 mg/dL (6-20); CALCIUM 7.9 mg/dL (8.5-10.3); CARBON DIOXIDE - CO2 27 mmol/L (21-32); CHLORIDE 106 mmol/L (101-111); CREATININE 0.4 mg/dL (0.4-1.0); GFR - MDRD 172 (>89); GLUCOSE 123 mg/dL (70-100); MAGNESIUM 1.9 mg/dL (1.7-2.8); PHOSPHORUS 3.4 mg/dL (2.5-4.6); POTASSIUM 3.5 mmol/L (3.5-5.0); SODIUM 139 mmol/L (135-145); TOTAL PROTEIN 4.8 g/dL (6.7-8.2)
[2020-11-15] MEDS: CIPROFLOXACIN 400 MG/200 ML 400 MG/200 ML BAG IV SCH ×2 (05:01→19:08)
[2020-11-15] MEDS: ACETAMINOPHEN 325 MG TABLET PO SCH ×4 (08:55→20:34)
[2020-11-15] MEDS: MULTIVITAMIN W/MINERALS TABLET PO SCH (08:55)
[2020-11-15] MEDS: DULoxetine 30 MG CAPSULE PO SCH (08:55)
[2020-11-15] MEDS: PREGABALIN 100 MG CAPSULE PO SCH ×2 (08:55→20:35)
[2020-11-15] MEDS: VENLAFAXINE ER 37.5 MG CAPSULE PO SCH (08:55)
[2020-11-15] MEDS: polyethylene glycoL 3350 17 GM PACKET PO SCH ×2 (08:58→20:35)
[2020-11-15] MEDS: DOCUSATE SODIUM 100 MG CAPSULE PO SCH ×2 (08:58→20:35)
[2020-11-15] MEDS: HEPARIN 5,000 UNIT/ML VIAL SUBQ SCH ×2 (09:10→20:35)
[2020-11-15] MEDS: ONDANSETRON 4 MG/2 ML VIAL IVP PRN (09:33)
[2020-11-15] MEDS ORDERED: VENLAFAXINE ER 37.5 MG CAPSULE PO SCH (10:00)
[2020-11-15] MEDS: POTASSIUM CHLOR 10 MEQ/100 ML 10 MEQ/100 ML BAG IV SCH ×3 (10:21→14:54)
[2020-11-15] MEDS: SODIUM CHLORIDE FLUSH 0.9% 10 ML SYRINGE IVP PRN (10:21)
[2020-11-15] MEDS ORDERED: POTASSIUM CHLORIDE 20 MEQ TABLET PO ONE (12:08)
--- NOTE | 2020-11-15 19:08 | PROVIDER PROGRESS NOTE ---
Progress Note Subjective Postoperative day #4 status post below listed procedures. Postoperative tachycardia work-up negative for acute coronary syndrome without evidence of myocardial infarction. Moreover CT angio negative for acute pulmonary embolism. Positive bowel function. at bedside. Voiding spontaneously. Denies nausea denies vomiting. Discharge in the next 24 hours. Feeling much improved. Pre-Op Diagnosis: Cecal Volvulus; acute abdomen; history of cecopexy Procedure Performed: 1. Diagnostic laparoscopy 2. Laparoscopic adhesio lysis 3. Laparoscopic right colon resection 4. Laparoscopic hepatic flexure mobilization 6. Extracorporeal [id number] functional end-to-end isoperistaltic anastomosis 6. Tap block per anesthesia 7. Drain placement Post Op Diagnosis: Same; Transverse colonic volvulus as well Objective Afebrile hemodynamically acceptable General Appearance: positive: No acute distress Eyes Bilateral: positive: Normal inspection ENT: positive: ENT inspection nml Neck: positive: Nml inspection Respiratory: positive: Chest non-tender, No respiratory distress, Breath sounds nml. negative: Wheezes, Rales, Rhonchi Cardiovascular: positive: Regular rate & rhythm Extremities: positive: Non-tender, Full ROM, Nml appearance Neurologic/Psychiatric: positive: Oriented x3, CN's nml (2-12) Abdominal Exam: Inspection - Erythema none; Scars with midline wound Prevena VAC in place Auscultation - positive bowel sounds Palpation - Hernias none; Fluctuance none; Induration none; Scar N/A Buddy drain in place with serosanguineous discharge Impression/Plan Postoperative day #4. Status post above listed procedure. Positive function of gastrointestinal tract. (1) GI - DC IV; continue bowel regimen, advanced to regular diet. GI ppx. Opiate sparring analgesia. Continue scheduled Zofran and Reglan. (2) SURGERY - Discontinue Buddy drain and Prevena prior to discharge to home. (3) Renal/Lytes - IVF. Renal indices within normal limits. Replete electrolytes hyponatremia and hypomagnesemia and hypophosphatemia. (4) Respiratory - O2 as necessary. Continue IS. (5) Heme - Will continue with DVT ppx. H/H stable. (6) Cardiovascular - HD acceptable. Work-up without concern for acute [place], and no evidence of pulmonary embolism on CT angio. (7) Neuro - Opiate sparring analgesia. Neuropathic agents. 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 Continue psychiatric meds. (8) Immune/Infectious Disease - continue Cipro and Flagyl. (9) PT/OT and out of bed to chair (10) ENDOCRINOLOGY - DC insulin sliding scale. (11) STATUS - likely d/c next 24/48hours. Appreciate hospitalist service further input. Please note that voice recognition software was used to transcribe this note and inadvertent errors might persist in spite of review and editing. I am obliged to you for your attention. I am thankful to you for allowing me to participate with you in this care of this patient.
[2020-11-15] MEDS ORDERED: LORazepam 1 MG TABLET PO PRN (19:50)
[2020-11-15] MEDS: HYDROmorphone 0.5 MG/0.5 ML SYRINGE IVP PRN (20:37)
[2020-11-16] MEDS: ACETAMINOPHEN 325 MG TABLET PO SCH ×4 (00:51→12:19)
[2020-11-16] MEDS: HYDROmorphone 0.5 MG/0.5 ML SYRINGE IVP PRN ×4 (05:39→14:30)
[2020-11-16] MEDS: METOCLOPRAMIDE 10 MG/2 ML VIAL IVP SCH ×2 (05:40→12:13)
[2020-11-16 06:14] LABS: MAGNESIUM 2.1 mg/dL (1.7-2.8); PHOSPHORUS 4.4 mg/dL (2.5-4.6)
[2020-11-16] MEDS ORDERED: VENLAFAXINE ER 37.5 MG CAPSULE PO SCH (09:00)
[2020-11-16] MEDS: SODIUM CHLORIDE FLUSH 0.9% 10 ML SYRINGE IVP SCH (09:25)
[2020-11-16] MEDS: polyethylene glycoL 3350 17 GM PACKET PO SCH (10:45)
[2020-11-16] MEDS: PREGABALIN 100 MG CAPSULE PO SCH (10:48)
[2020-11-16] MEDS: DULoxetine 30 MG CAPSULE PO SCH (10:48)
[2020-11-16] MEDS: MULTIVITAMIN W/MINERALS TABLET PO SCH (10:48)
[2020-11-16] MEDS: DOCUSATE SODIUM 100 MG CAPSULE PO SCH (10:48)
[2020-11-16] MEDS: HEPARIN 5,000 UNIT/ML VIAL SUBQ SCH (10:50)
[2020-11-16] MEDS: SODIUM CHLORIDE FLUSH 0.9% 10 ML SYRINGE IVP PRN ×2 (12:13→14:31)
[2020-11-16 13:42] VITALS: BP 100/56
--- NOTE | 2020-11-16 14:55 | Discharge Plan ---
Discharge Plan Problem Reviewed?: Yes Disposition: Home, Self Care Condition: Good Prescriptions: Pregabalin [Lyrica] 100 mg PO BID #28 tab oxyCODONE [Roxicodone] 5 mg PO Q4-6H #30 tablet Ondansetron Odt [Zofran Odt] 4 mg TL Q6H PRN #20 tablet PRN Reason: Nausea / Vomiting Diet: Soft Activity Restrictions: Activity as Tolerated Shower Restrictions: No Driving Restrictions: Yes (Not while on narcotics) Weight Bearing: Full Weight Additional Instructions or Follow Up instructions: DISCHARGE INSTRUCTIONS TEMPLATE: No heavy lifting, pushing, or pulling. Stairs are allowed, no strenuous/exertional activities. 5-10lbs weight carrying limit (i.e. gallon of milk) If provided, abdominal binder while out of bed and while ambulating. Call or proceed to clinic/ER for fevers, severe pain, nausea, vomiting, inability to pass flatus/stool, bleeding, wound redness/discharge, weakness, excessively loose stool/diarrhea, or for any other reasonably worrisome symptom or concern. Soft diet, no raw vegetables, avoid high fiber foods. Colace 100mg by mouth twice to three times daily while taking narcotic pain medication. If no bowel movement in 24-48hr, may take 17g Miralax in 8oz water twice daily until bowel movement. May shower, no submersive bathing. Follow up in clinic in 2-4 weeks for wound check and staple removal. No driving while taking narcotic pain medications. Follow up with primary care provider and/or medical subspecialist following discharge as well. Patient not allowed to drive self today or within 24 hours of surgery. No Smoking: If you smoke, Please STOP! Call for help. Follow-up with: Estela Pruett ARNP, MINE INSPECTOR-C [Primary Care Provider] -
--- NOTE | 2020-11-16 14:58 | DISCHARGE SUMMARY ---
"Discharge Summary Admit Date: 11/11/20 Discharge Date: 11/16/20 Discharging Provider: Suyapa Code Status: Attempt Resuscitation Condition at Discharge: Good Discharge Disposition: 01 Home, Self Care - DIAGNOSES Admission Diagnoses: 1. Cecal volvulus 2. Acute abdomen 3. History of prior cecopexy 4. Acute on chronic abdominal discomfort Discharge Diagnoses with Status of Each Condition: 1. Cecal volvulus - resolved/treated 2. Acute abdomen - resolved/treated 3. History of prior cecopexy - resolved/treated 4. Acute on chronic abdominal discomfort - resolved/treated 5. History of psychiatric/psychotropic medical management - stable/managed 6. Dense adhesions - resolved/treated 7. Transverse colonic volvulus - resolved/treated 8. Redundant colon - resolved/treated - HPI History of Present Illness: History of Present Illness: 45-year-old female presenting for crampy abdominal pain. Notable history for vacillating stooling for several years along with crampy abdominal pain for which she underwent historic work-up and approximately 5 years ago had cecopexy performed laparoscopically for intermittent reported volvulus. She continued to have worsening symptoms with bowel movement changes since. No significant family history. Notable past surgical history to include cecopexy for redundant right colon performed laparoscopically. Patient reports longstanding change in bowel function, denies bleeding per rectum, and also denies reflux associated symptoms. Patient does not use tobacco. Patient has a history of alcohol use but denies any associated abuse. No history of heart attack or stroke. Patient takes no systemic anticoagulation. Endoscopic history includes prior colonoscopy with no evidence of reported microscopic colitis, inflammatory bowel disease or other pathology for which she would experience loose stooling. - CONSULTS | PROCEDURES Consultations: Hospitalist Service Procedures: Pre-Op Diagnosis: Cecal Volvulus; acute abdomen; history of cecopexy Procedure Performed: 1. Diagnostic laparoscopy 2. Laparoscopic adhesio lysis 3. Laparoscopic right colon resection 4. Laparoscopic hepatic flexure mobilization 6. Extracorporeal [id number] functional end-to-end isoperistaltic anastomosis 6. Tap block per anesthesia 7. Drain placement Post Op Diagnosis: Same; Transverse colonic volvulus as well - HOSPITAL COURSE Hospital Course: Assessment and Plan: 45-year-old female history of cecopexy hospital day #1 presenting with cecal volvulus through the emergency room. Imaging with no evidence of gross perforation however patient with distention, right colonic torsion, and imaging consistent thereof. Patient explained that cecopexy is rarely done. We will proceed with attempted laparoscopic likely open right colectomy, the latter secondary to the distorted anatomy from the cecopexy. Risks and benefits discussed. Plan going forward is as follows. (1) GI - IVF, bowel rest. GI ppx. Anticipate ileus. Opiate sparring analgesia. (2) SURGERY - colectomy with planned anastomosis, if the patient does indeed have ischemia or any other intraoperative compromise we might necessitate a stoma. Plan drainage catheter placement. (3) Renal/Lytes - continue IVF. Renal indices within normal limits. Plan Wliks catheter (4) Respiratory - O2 as necessary. Continue IS. Chest XR. Preop evaluation to also include EKG see below. (5) Heme - Will continue with DVT ppx. We will plan type and screen. (6) Cardiovascular - HD acceptable. EKG preoperatively (7) Neuro - Opiate sparring analgesia. Antispasmodics with Robaxin. Neuropathic agents. We will plan tap blocks and/or epidural. (8) PT/OT. Discussed presentation and plan at length with both the patient as well as her . Please note that voice recognition software was used to transcribe this note and inadvertent errors might persist in spite of review and editing. I am obliged to you for your attention. I am thankful to you for allowing me to participate with you in this care of this patient. PARTIAL DISCHARGE SUMMARY ADDENDUM TO DICTATION SUMMARY HOSPITAL COURSE: This patient was admitted to the hospital with concerns for cecal volvulus through the emergency room; given the concerning features which, on imaging, were clearly evident, together with the patient's signs of acute abdomen with developing peritonitis, the patient was advised of the indication to go operative intervention. The patient was of note notable for a historic cecopexy several years prior, after which she reports having had worsening symptoms of intermittent abdominal pain for several years. Imaging was clearly not identified for sigmoid volvulus, and there was no indication for colonoscopic or proctoscopic decompression. The patient underwent the above-listed procedure, for which there was no complic ation. The patient underwent a formal right colectomy to include also the transverse colon, which was also volvulized. Of note, historic cecopexy was without any evidence of persistence, and cecum was freely mobile within the abdomen. The patient was followed for resumption of bowel function and developed ileus. Patient was slowly advanced for her diet. She was maintained in the ICU initially and thereafter moved to the floor without any complication. She had successful trial of void after removing Wilks catheter. She was removed for her drain and her Prevena wound VAC just prior to discharge. The patient was advanced to a low-fiber diet. She was resumed on all her psychotropic m edications. She had appropriate transition from IV to oral analgesia. She had normal white count and was afebrile just prior to discharge, with hemodynamic acceptability. She was appropriate for discharge and was sent home with appropriate restrictions and planned followup. She was advised that the pathology was negative for any malignancy, and this was all consistent with redundancy, as is historically the case. TD: 11/25/2020 10:21 - ALLERGIES Allergies/Adverse Reactions: Allergies Allergy/AdvReac Type Severity Reaction Status Date / Time meperidine HCl * Allergy Intermediate Respiratory Verified 11/11/20 21:54 [From Demerol] morphine Allergy Intermediate Respiratory Verified 11/11/20 21:54 Sulfa (Sulfonamide Allergy Intermediate Respiratory Verified 11/11/20 21:54 Antibiotics) - MEDICATIONS Home Medications: Ambulatory Orders Medication Instructions Recorded Confirmed Ibuprofen 800 mg PO Q6HR PRN 06/12/15 11/12/20 Lorazepam [Ativan] 0.5 - 1 mg PO QPM PRN 06/12/15 11/12/20 Atorvastatin [Lipitor] 20 mg PO HS 11/12/20 11/12/20 Buspirone HCl 15 mg PO BID 11/12/20 11/12/20 DULoxetine [Cymbalta] 30 mg PO DAILY 11/12/20 11/12/20 Venlafaxine ER [Effexor ER] 37.5 mg PO DAILY 11/12/20 11/12/20 Acetaminophen [Tylenol] 650 mg PO Q4HR tablet 11/16/20 Docusate Sodium 100Mg Capsule 100 mg PO BID 11/16/20 [Colace 100Mg Capsule] LORazepam [Ativan] 1 mg PO Q6H PRN tablet 11/16/20 Multivitamin W/Minerals [Theragran 1 tab PO DAILYWM tablet 11/16/20 M] Ondansetron Odt [Zofran Odt] 4 mg TL Q6H PRN #20 tablet 11/16/20 Pregabalin [Lyrica] 100 mg PO BID #28 tab 11/16/20 oxyCODONE [Roxicodone] 5 mg PO Q4-6H #30 tablet 11/16/20 polyethylene glycoL 3350 [Miralax] 17 gm PO BID packet 11/16/20 traMADol [Ultram] 50 mg PO Q4-6H PRN #20 tablet 11/20/20 - PHYSICAL EXAM AT DISCHARGE General Appearance: positive: No acute distress, Alert Eyes Bilateral: positive: Normal inspection, PERRL, EOMI ENT: positive: ENT inspection nml Neck: positive: Nml inspection Respiratory: positive: Chest non-tender, No respiratory distress, Breath sounds nml. negative: Wheezes, Rales, Rhonchi Cardiovascular: positive: Regular rate & rhythm Abdomen: positive: Non-tender, No distention. negative: Tenderness, Guarding, Rebound Skin: positive: Color nml Extremities: positive: Non-tender, Full ROM, Nml appearance Neurologic/Psychiatric: positive: Oriented x3, CN's nml (2-12), Motor nml, Sensation nml, Mood/affect nml Physical Exam Other/Comments: Abdominal Exam: Inspection - Erythema none; Scars trochars and midline incision clean dry and intact Auscultation -normoactive bowel sounds Palpation - Hernias none; Fluctuance none; Induration none; Scar N/A Appropriately tender. No rebound. No guarding. - LABS Result Diagrams: 11/15/20 04:00 11/15/20 04:00 - FOLLOW UP Follow Up: See discharge plan for balance. 2 weeks. - TIME SPENT Time Spent in Discharge (Minutes): 60"
--- OUTSIDE RECORDS SUMMARY | 2020-11-20 20:50 | EXTERNAL MEDICAL SUMMARY RPT | Continuity of Care Document ---
:1975 Demographics Phone Unavailable Preferred Language Unknown Marital Status Unknown [employer] Affiliation Unknown Race Unknown Ethnic Group Unknown Author Organization [facility] Address [address] [phone] Phone Social History date description facility [phone]
--- NOTE | 2020-11-25 10:22 | DISCHARGE SUMMARY ---
Please delete as incorporated into the discharge summary MTDD
== END 2020-11-16 16:02 | disposition home or self-care (01) | DRG 329 ==
LOC: ED 21:43 → MS2 23:30 → ICU 11-12 01:12 → MS3 11-14 15:13
PROVIDERS: ADMIT Surgery; ATTEND Surgery
PROC: 0DTF4ZZ Resection of Right Large Intestine, Percutaneous Endoscopic Approach (ICD-10-PCS; principal; 2020-11-11)
PROC: 0DNH4ZZ Release Cecum, Percutaneous Endoscopic Approach (ICD-10-PCS; 2020-11-11)
PROC: 0DNF4ZZ Release Right Large Intestine, Percutaneous Endoscopic Approach (ICD-10-PCS; 2020-11-11)
PROC: 0DNB4ZZ Release Ileum, Percutaneous Endoscopic Approach (ICD-10-PCS; 2020-11-11)
DX: K56.2 Volvulus (principal); K55.041 Focal (segmental) acute infarction of large intestine; K66.0 Peritoneal adhesions (postprocedural) (postinfection); K56.7 Ileus, unspecified; R00.0 Tachycardia, unspecified; F41.9 Anxiety disorder, unspecified; F32.9 Major depressive disorder, single episode, unspecified; R19.4 Change in bowel habit; F43.10 Post-traumatic stress disorder, unspecified; Z79.899 Other long term (current) drug therapy; Z98.890 Other specified postprocedural states; Z82.49 Family history of ischemic heart disease and other diseases of the circulatory system
CPT/HCPCS: 0202U; 36415; 71045; 71275; 74018; 74177; 80053; 81003; 81025; 83690; 83735; 84100; 84443; 84484; 85018; 85025; 86850; 86900; 86901; 87150; 93005; 96365; 96375; 96376; 97161; 99284; 99285; A9270; J0131; J0330; J1170; J1200; J2060; J2765; J7040; J7120; J8499; Q9967; 81001; 87086

== ENCOUNTER 2020-12-11 12:09 | Emergency (ER) | payer OTHER ==
--- OUTSIDE RECORDS SUMMARY | 2020-12-11 12:12 | EXTERNAL MEDICAL SUMMARY RPT | Continuity of Care Document ---
:1975 Demographics Phone Unavailable Preferred Language Unknown Marital Status Unknown Gnosticist Affiliation Unknown Race Unknown Ethnic Group Unknown Author Organization [facility] Address [address] [phone] Phone Social History date description facility [phone]
--- OUTSIDE RECORDS SUMMARY | 2020-12-11 12:32 | EXTERNAL MEDICAL SUMMARY RPT | Continuity of Care Document ---
:1975 Demographics Phone Unavailable Preferred Language Unknown Marital Status Unknown Orthodoxy Affiliation Unknown Race Unknown Ethnic Group Unknown Author Organization [facility] Address [address] [phone] Phone Social History date description facility [phone]
[2020-12-11 12:39] LABS: BILIRUBIN,URINE NEGATIVE (NEGATIVE); CLARITY,URINE CLEAR (CLEAR); GLUCOSE, URINE (UA) NEGATIVE (NEGATIVE); HCG UR QUAL NEGATIVE; KETONES,URINE (UA) NEGATIVE (NEGATIVE); LEUKOCYTE ESTERASE, URINE NEGATIVE (NEGATIVE); NITRITE,URINE NEGATIVE (NEGATIVE); OCCULT BLOOD,URINE NEGATIVE (NEGATIVE); PROTEIN,URINE NEGATIVE (NEGATIVE); UROBILINOGEN,URINE 0.2 (NORMAL) E.U./dL (NORMAL)
[2020-12-11 12:45] LABS: BASOPHILS # (AUTO) 0.1 10^3/uL (0.0-0.1); EOSINOPHILS # (AUTO) 0.2 10^3/uL (0.0-0.7); EOSINOPHILS % (AUTO) 2.8 %; HCT - HEMATOCRIT 38.9 % (37.0-47.0); HGB - HEMOGLOBIN 12.5 g/dL (12.0-16.0); LYMPHOCYTES # (AUTO) 1.9 10^3/uL (1.5-3.5); LYMPHOCYTES % (AUTO) 32.8 %; MEAN CORPUSCULAR HGB CONC 32.1 g/dL (32.0-36.0); MEAN CORPUSCULAR VOLUME 96.5 fL (81.0-99.0); MONOCYTES # (AUTO) 0.6 10^3/uL (0.0-1.0); MONOCYTES % (AUTO) 9.8 %; NEUTROPHILS # (AUTO) 3.1 10^3/uL (1.5-6.6); NEUTROPHILS % (AUTO) 53.6 %; PLT - PLATELET COUNT 244 10^3/uL (130-450); RED BLOOD COUNT 4.03 10^6/uL (4.20-5.40); RED CELL DISTRIBUTION WIDTH 13.7 % (12.0-15.0); WHITE BLOOD COUNT 5.8 x10^3/uL (4.8-10.8)
[2020-12-11 12:59] LABS: ALBUMIN 4.8 g/dL (3.2-5.5); ALBUMIN/GLOBULIN RATIO 1.8 (1.0-2.2); BILIRUBIN,TOTAL 0.8 mg/dL (0.2-1.0); CALCIUM 9.6 mg/dL (8.5-10.3); CREATININE 0.5 mg/dL (0.4-1.0); POTASSIUM 3.6 mmol/L (3.5-5.0); TOTAL PROTEIN 7.5 g/dL (6.7-8.2)
--- NOTE | 2020-12-11 13:59 | ED Physician Documentation ---
History of Present Illness - Stated complaint Stated Complaint: ABD PX - Chief complaint Chief Complaint: Abd Pain - Additonal information Additional information: 45-year-old female presents to the emergency department for evaluation of lower abdominal pain. She reports that 2 to 3 days ago she began developing left lower quadrant abdominal pain but over the last 24 hours it has migrated to her epigastrium. She has a history of prior cecopexy as well is recent surgery for cecal volvulus. This was completed here at [facility] with Dr. Flash Dale. She had been recovering well postoperatively until this pain began 2 to 3 days ago. She has not had any fevers. No black bloody or mucoid bowel movements. She is taking MiraLAX and a stool softener to prevent constipation. She has been nauseated but no vomiting. At this time she declines pain and nausea medications. Review of Systems Constitutional: denies: Fever Eyes: reports: Reviewed and negative Ears: reports: Reviewed and negative Nose: reports: Reviewed and negative Throat: reports: Reviewed and negative Cardiac: reports: Reviewed and negative Respiratory: reports: Dyspnea GI: reports: Abdominal Pain, Nausea. 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 : None HEENT: Other Psych: Depression, Anxiety, Post traumatic stress disorder Musculoskeletal: None Derm: None - Past Surgical History Past Surgical History: Yes General: Bowel surgery, EGD Ortho: Other HEENT: Tonsil/Adenoidectomy - Present Medications Home Medications: Ambulatory Orders Medication Instructions Recorded Confirmed Ibuprofen 800 mg PO Q6HR PRN 06/12/15 11/12/20 Lorazepam [Ativan] 0.5 - 1 mg PO QPM PRN 06/12/15 11/12/20 Atorvastatin [Lipitor] 20 mg PO HS 11/12/20 11/12/20 Buspirone HCl 15 mg PO BID 11/12/20 11/12/20 DULoxetine [Cymbalta] 30 mg PO DAILY 11/12/20 11/12/20 Venlafaxine ER [Effexor ER] 37.5 mg PO DAILY 11/12/20 11/12/20 Acetaminophen [Tylenol] 650 mg PO Q4HR tablet 11/16/20 Docusate Sodium 100Mg Capsule 100 mg PO BID 11/16/20 [Colace 100Mg Capsule] LORazepam [Ativan] 1 mg PO Q6H PRN tablet 11/16/20 Multivitamin W/Minerals [Theragran 1 tab PO DAILYWM tablet 11/16/20 M] Ondansetron Odt [Zofran Odt] 4 mg TL Q6H PRN #20 tablet 11/16/20 Pregabalin [Lyrica] 100 mg PO BID #28 tab 11/16/20 oxyCODONE [Roxicodone] 5 mg PO Q4-6H #30 tablet 11/16/20 polyethylene glycoL 3350 [Miralax] 17 gm PO BID packet 11/16/20 traMADol [Ultram] 50 mg PO Q4-6H PRN #20 tablet 11/20/20 - Allergies Allergies/Adverse Reactions: Allergies Allergy/AdvReac Type Severity Reaction Status Date / Time meperidine HCl * Allergy Intermediate Respiratory Verified 12/11/20 12:21 [From Demerol] morphine Allergy Intermediate Respiratory Verified 12/11/20 12:21 Sulfa (Sulfonamide Allergy Intermediate Respiratory Verified 12/11/20 12:21 Antibiotics) - Social History Does the pt smoke?: No Smoking Status: Never smoker Does the pt drink ETOH?: No Does the pt have substance abuse?: No - Immunizations Immunizations are current?: Yes - POLST Patient has POLST: No PD ED PE EXPANDED - General General: Alert, No acute distress, Well developed/nourished - Cardiac Cardiac: Regular Rate, Radial strong equal, Pedal strong equal, Cap refill < 2 sec. No: Murmur Present - Respiratory Respiratory: Clear to ausultation rosana. No: Distress, Labored - Abdomen Abdomen: Normal Bowel sounds, Tender to palpation. No: Rebound, Guarding (Focal tenderness left lower quadrant with radiation to the epigastrium. There is no guarding or rebound. Healing lower vertical abdominal incision without drainage or ecchymosis.) - Derm Derm: Normal color, Warm and dry. No: Rash - Extremities Extremities: Normal. No: Deformity, Tenderness - Neuro Neuro: Alert and Oriented X 3. No: Confused, Disoriented - GCS Eye Opening: Spontaneous Motor: Obeys Commands Verbal: Oriented Total: 15 Results - Vitals Vitals: Vital Signs - 24 hr 12/11/20 12/11/20 12/11/20 12:21 14:07 14:43 Temperature 37.2 C Heart Rate 80 73 76 Respiratory 18 16 16 Rate Blood Pressure 119/72 124/88 H 113/72 O2 Saturation 100 100 100 12/11/20 16:57 Temperature Heart Rate 74 Respiratory 18 Rate Blood Pressure 117/74 O2 Saturation 100 Oxygen O2 Source Room air - Labs Labs: Laboratory Tests 12/11/20 12/11/20 12/11/20 12:30 12:42 12:42 WBC 5.8 RBC 4.03 L Hgb 12.5 Hct 38.9 MCV 96.5 MCH 31.0 MCHC 32.1 RDW 13.7 Plt Count 244 MPV 10.0 Neut # (Auto) 3.1 Lymph # (Auto) 1.9 Swain # (Auto) 0.6 Eos # (Auto) 0.2 Baso # (Auto) 0.1 Absolute Nucleated RBC 0.00 Nucleated RBC % 0.0 Sodium 138 Potassium 3.6 Chloride 103 Carbon Dioxide 23 Anion Gap 12.0 BUN 19 Creatinine 0.5 Estimated GFR (MDRD) 133 Glucose 85 Calcium 9.6 Total Bilirubin 0.8 AST 29 ALT 32 Alkaline Phosphatase 64 Total Protein 7.5 Albumin 4.8 Globulin 2.7 Albumin/Globulin Ratio 1.8 Lipase 46 Urine Color YELLOW Urine Clarity CLEAR Urine pH 6.0 Ur Specific [place] <=1.005 Urine Protein NEGATIVE Urine Glucose (UA) NEGATIVE Urine Ketones NEGATIVE Urine Occult Blood NEGATIVE Urine Nitrite NEGATIVE Urine Bilirubin NEGATIVE Urine Urobilinogen 0.2 (NORMAL) Ur Leukocyte Esterase NEGATIVE Ur Microscopic Review NOT INDICATED Urine Culture Comments NOT INDICATED Urine HCG, Qual NEGATIVE - Rads (name of study) CT abd/pelv w Radiology: Final report received (Postsurgical sequelae. No acute process.) abd US Radiology: See rad report (Normal exam.), Other (CBD upper limits of normal otherwise unremarkable per technical services rep.) PD MEDICAL DECISION MAKING - ED course Complexity details: reviewed results, re-evaluated patient, d/w patient, d/w economic consultant (delmy MUNGUIA (surgeon)) ED course: 45-year-old female presents the emergency department for evaluation of left lower quadrant and epigastric abdominal pain. She recently underwent surgical repair of a cecal volvulus with 3 anastomosis of her colon. She has been seen by Dr. Stauffer and [facility] locally. Screening labs show no significant leukocytosis. On exam she is only mildly tender in the epigastrium and left lower quadrant without guarding or rebound. CT of the abdomen did not show any acute findings. 1445: Given her recent surgery I did discuss this case with the on-call surgeon Dr. Dale who did do her cecal volvulus repair. He is requesting an abdominal ultrasound for evaluation of the biliary and gallbladder system. 1700: Abdominal ultrasound is unremarkable. I have attempted to contact Dr. Dale to f/u results with him, but he has been unav Departure - Departure Disposition: 01 Home, Self Care Clinical Impression: Left lower quadrant abdominal pain, Epigastric abdominal pain Condition: Stable Record reviewed to determine appropriate education?: Yes Follow-Up: Flash Dale MD [Provider Admit Priv/Credential] - Comments: You were seen in the emergency department today for lower abdominal pain as well as epigastric pain. As we discussed your screening labs are essentially unremarkable. We did do a CT of the abdomen that does not show any worrisome findings. In particular the anastomosis of the surgical site is intact with the surgical clips noted. We did do an ultrasound of your upper abdomen to evaluate your gallbladder and again that was also unremarkable. Please continue to follow-up with the surgical clinic as already scheduled. Dr. Dale would like to see you on Thursday. If you develop suddenly severe or different abdominal pain, have bloody stools, develop any fevers please return immediately to the emergency department
--- NOTE | 2020-12-11 14:34 | CT Report ---
PROCEDURE: Abdomen/Pelvis W INDICATIONS: lower abd pain CONTRAST: IV CONTRAST: Isovue 300 ml: 100 PO CONTRAST: *NO PO CONTRAST TECHNIQUE: After the administration of IV contrast, 5 mm thick sections acquired from the diaphragms to the symp hysis. 5 mm thick coronal and sagittal reformats were acquired. For radiation dose reduction, the f ollowing was used: automated exposure control, adjustment of mA and/or kV according to patient size. COMPARISON: CT dated 11/11/2020 FINDINGS: Image quality: Excellent. ABDOMEN: Lung bases: Lung bases are clear. Heart size is normal. Solid organs: Liver and spleen are normal in size and enhancement. Gallbladder is grossly unremarka ble Biliary system is non dilated. Pancreas enhances normally. No adrenal nodules. Kidneys demons trate normal size and enhancement, without hydronephrosis. Peritoneum and bowel: Bowel loops demonstrate normal wall thickness and caliber. There are new surgi krunal clips within the bowel within the left anterior pelvis. Patient appears to be status post partial colectomy. No free fluid or air. Nodes and vessels: No retroperitoneal or mesenteric adenopathy by size criteria. Aorta and inferior vena cava are normal in size. Miscellaneous: No ventral hernias. PELVIS: Genitourinary: Bladder wall thickness is normal. Miscellaneous: No inguinal hernias or adenopathy. Bones: No suspicious bony lesions. No change in mild chronic L3 compression fracture No acute verte bral body compression fractures. IMPRESSION: 1. Postsurgical sequelae. 2. No acute process. Reviewed by: Nata Cisse MD on 12/11/2020 2:33 PM PDT Approved by: Nata Cisse MD on 12/11/2020 2:33 PM PDT Station ID: [id number]
[2020-12-11] MEDS ORDERED: IOPAMIDOL-300 100 ML VIAL ONE (14:35)
[2020-12-11] MEDS ORDERED: MAG HYDROX/AL HYDROX/SIMETH 30 ML UDC PO STA (14:43)
[2020-12-11] MEDS ORDERED: LIDOCAINE VISCOUS 2% 15 ML UDC MM STA (14:43)
--- NOTE | 2020-12-11 15:12 | CONSULTATION NOTE ---
Referring Provider Name of Referring Provider:: Kenya Isiah Chief Complaint - Chief Complaint Chief Complaint: Abdominal pain History of Present Illness - Admitted From Admitted From:: Home - History Obtained From Records Reviewed: EMR and patient History obtained from: EMR and patient Exam Limitations: None - History of Present Illness HPI Comment/Other: Patient is a 45-year-old female who is postoperative status post below listed procedures. Patient has complaints of midline incisional pain as well as epigastric pain. Patient has no fevers, no sweats, no chills. Positive resumption of bowel function. Evaluated through the emergency room with CT scan as well as abdominal ultrasound, please see below and elsewhere in this report. Surgery asked to see patient. Pre-Op Diagnosis: Cecal Volvulus; acute abdomen; history of cecopexy Procedure Performed: 1. Diagnostic laparoscopy 2. Laparoscopic adhesio lysis 3. Laparoscopic right colon resection 4. Laparoscopic hepatic flexure mobilization 6. Extracorporeal [id number] functional end-to-end isoperistaltic anastomosis 6. Tap block per anesthesia 7. 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 He had a CABG 3 years ago. She denies any other family history. Living Situation: With spouse/s.o. Social History Notes: She lives at home with her . She is a non-smoker does not drink alcohol. 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 - POLST Patient has POLST: No Meds/Allgy - Home Medications Home Medications: Ambulatory Orders Medication Instructions Recorded Confirmed Ibuprofen 800 mg PO Q6HR PRN 06/12/15 11/12/20 Lorazepam [Ativan] 0.5 - 1 mg PO QPM PRN 06/12/15 11/12/20 Atorvastatin [Lipitor] 20 mg PO HS 11/12/20 11/12/20 Buspirone HCl 15 mg PO BID 11/12/20 11/12/20 DULoxetine [Cymbalta] 30 mg PO DAILY 11/12/20 11/12/20 Venlafaxine ER [Effexor ER] 37.5 mg PO DAILY 11/12/20 11/12/20 Acetaminophen [Tylenol] 650 mg PO Q4HR tablet 11/16/20 Docusate Sodium 100Mg Capsule 100 mg PO BID 11/16/20 [Colace 100Mg Capsule] LORazepam [Ativan] 1 mg PO Q6H PRN tablet 11/16/20 Multivitamin W/Minerals [Theragran 1 tab PO DAILYWM tablet 11/16/20 M] Ondansetron Odt [Zofran Odt] 4 mg TL Q6H PRN #20 tablet 11/16/20 Pregabalin [Lyrica] 100 mg PO BID #28 tab 11/16/20 oxyCODONE [Roxicodone] 5 mg PO Q4-6H #30 tablet 11/16/20 polyethylene glycoL 3350 [Miralax] 17 gm PO BID packet 11/16/20 traMADol [Ultram] 50 mg PO Q4-6H PRN #20 tablet 11/20/20 - Allergies Allergies/Adverse Reactions: Allergies Allergy/AdvReac Type Severity Reaction Status Date / Time meperidine HCl * Allergy Intermediate Respiratory Verified 12/11/20 12:21 [From Demerol] morphine Allergy Intermediate Respiratory Verified 12/11/20 12:21 Sulfa (Sulfonamide Allergy Intermediate Respiratory Verified 12/11/20 12:21 Antibiotics) Review of Systems - Gastrointestinal Gastrointestinal: reports: Abdominal pain Exam - Vital Signs Vital Signs: Vital Signs x48h Temp Pulse Resp BP Pulse Ox 12/11/20 14:43 76 16 113/72 100 12/11/20 14:07 73 16 124/88 H 100 12/11/20 12:21 37.2 C 80 18 119/72 100 - Physical Exam Comments/Other: General Appearance: positive: No acute distress Eyes Bilateral: positive: Normal inspection ENT: positive: ENT inspection nml Neck: positive: Nml inspection Respiratory: positive: Chest non-tender, No respiratory distress, Breath sounds nml. negative: Wheezes, Rales, Rhonchi Cardiovascular: positive: Regular rate & rhythm Abdomen: positive: No distention, Other. negative: Guarding, Rebound Extremities: positive: Non-tender, Full ROM, Nml appearance Neurologic/Psychiatric: positive: Oriented x3, CN's nml (2-12) Abdominal Exam: Inspection - Erythema [none]; Scars [trocars well healed] and midline scar well- healed with no palpable hernias Auscultation - [Normoactive bowel sounds] Palpation - Hernias [none]; Fluctuance [none]; Induration [none]; Scar [N/A] Again no palpable hernias, no fluctuance, minimal tenderness. Conclusion and Plan - Lab Results Laboratory Results 12/11/20 12:42: Sodium 138, Potassium 3.6, Chloride 103, Carbon Dioxide 23, A nion Gap 12.0, BUN 19, Creatinine 0.5, Estimated GFR (MDRD) 133, Glucose 85, Calcium 9.6, Total Bilirubin 0.8, AST 29, ALT 32, Alkaline Phosphatase 64, Total Protein 7.5, Albumin 4.8, Globulin 2.7, Albumin/Globulin Ratio 1.8, Lipase 46 12/11/20 12:42: WBC 5.8, RBC 4.03 L, Hgb 12.5, Hct 38.9, MCV 96.5, MCH 31.0, MCHC 32.1, RDW 13.7, Plt Count 244, MPV 10.0, Neut # (Auto) 3.1, Lymph # (Auto) 1.9, [place] # (Auto) 0.6, Eos # (Auto) 0.2, Baso # (Auto) 0.1, Absolute Nucleated RBC 0.00, Nucleated RBC % 0.0 12/11/20 12:30: Urine Color YELLOW, Urine Clarity CLEAR, Urine pH 6.0, Ur Specific [place] <=1.005, Urine Protein NEGATIVE, Urine Glucose (UA) NEGATIVE, Urine Ketones NEGATIVE, Urine Occult Blood NEGATIVE, Urine Nitrite NEGATIVE, Urine Bilirubin NEGATIVE, Urine Urobilinogen 0.2 (NORMAL), Ur Leukocyte Esterase NEGATIVE, Ur Microscopic Review NOT INDICATED, Urine Culture Comments NOT INDICATED, Urine HCG, Qual NEGATIVE - Diagnostic Imaging Results Diagnostic Imaging Results: positive: Final report reviewed Diagnostic Imaging Results Comments: CT abdomen pelvis: 1. Postsurgical sequelae 2. No acute process Abdominal ultrasound: Normal hepatic parenchymal echogenicity and echotexture. Normal gallbladder wall thickness without gallstone, sludge, or pericholecystic fluid. Normal caliber intrahepatic and extrahepatic biliary ducts. Pancreas is unremarkable. The right kidney is normal. - Diagnosis Diagnosis: 1. History of irritable bowel syndrome. 2. History of cecopexy, remote. 3. History of recent cecal volvulus and transverse colonic volvulus. 4. Status post recent laparoscopic assisted right colectomy, hand-assisted. 5. Abdominal discomfort. 6. Anxiety, depression, PTSD - Plan Plan: Patient with recent concern for abdominal pain 1 month status post hand-assisted laparoscopic right colectomy for cecal and transverse colonic volvulus. Patient was pending CT scan and labs as outpatient. Secondary to worries regarding persistent discomfort, patient presented to the emergency room. Work-up is without any concern; normal white count, no thrombocytosis, H&H stable. CT scan abdomen pelvis and abdominal ultrasound with no concerns for acute intra-abdominal process. Patient is afebrile hemodynamically acceptable. There could be concern for dyspepsia and/or biliary dyskinesia which can be further evaluated as outpatient. With regard to surgical site pain there is no concern for infection, hernia, or other complication. We will have patient follow-up with me and consider above including HIDA scan to evaluate for dyskinesia and repeat upper and lower endoscopies. No acute surgical indication for any intervention and/or admission.
--- NOTE | 2020-12-11 16:03 | Ultrasound Report ---
PROCEDURE: Abdomen Limited INDICATIONS: Epigastric pain TECHNIQUE: Real-time focused scanning was performed of the abdomen, with image documentation. COMPARISON: 12/11/2020 CT abdomen and pelvis FINDINGS: Normal hepatic parenchymal echogenicity and echotexture. Normal gallbladder wall thickness without gallstone, sludge, or pericholecystic fluid. Normal caliber intrahepatic and extrahepatic bi liary ducts. Pancreas is unremarkable. The right kidney is normal. IMPRESSION: Normal exam. Reviewed by: Kayden Leon MD on 12/11/2020 4:01 PM PDT Approved by: Kayden Leon MD on 12/11/2020 4:01 PM PDT Station ID: [id number]
[2020-12-11 17:15] VITALS: BP 117/75
[2020-12-11] MEDS ORDERED: IOPAMIDOL-300 100 ML VIAL IVP ONE (22:36)
== END 2020-12-11 17:15 | disposition home or self-care (01) ==
LOC: ED 12:09
DX: R10.32 Left lower quadrant pain (principal); R10.13 Epigastric pain; Z98.890 Other specified postprocedural states; Z90.49 Acquired absence of other specified parts of digestive tract
CPT/HCPCS: 36415; 74177; 76705; 80053; 81003; 81025; 83690; 85025; 99284; A9270; Q9967; 81001; 87086

== ENCOUNTER 2021-02-28 10:44 | Outpatient (CLI) | payer OTHER | END 2021-02-28 23:59 | disposition home or self-care (01) | LOC: LAB.N 10:44 | PROVIDERS: ATTEND Family Medicine | DX: R07.0 Pain in throat (principal) | CPT/HCPCS: 87070; 87430 ==

== ENCOUNTER 2021-08-05 13:06 | Outpatient (CLI) | payer OTHER ==
--- NOTE | 2021-08-06 11:47 | Mammography Report ---
BILATERAL DIGITAL SCREENING MAMMOGRAM 3D/2D: 08/05/2021 CLINICAL: Routine screening. Comparison is made to exams dated: 06/18/2020 mammogram, 06/29/2019 mammogram, 06/28/2018 mammogram, 05/03/2017 mammogram, 10/23/2016 stereotactic biopsy, and 10/17/2016 mammogram - [facility]. The tissue of both breasts is heterogeneously dense. This may lower the sensitivity of mammogra phy. No significant masses, calcifications, or other findings are seen in either breast. There has been no significant interval change. IMPRESSION: NEGATIVE There is no mammographic evidence of malignancy. A 1 year screening mammogram is recommended. This exam was interpreted at Station ID: [id number]. NOTE: For mammograms, a report in lay terms will be sent to the patient. Approximately 15% of breast malignancies will not be visualized mammographically. In the management of a palpable breast mass, a negative mammogram must not discourage biopsy of a clinically suspicious lesion. Electronically Signed By: Kayden Leon M.D., jr/izzy:08/05/2021 14:11:40 ACR BI-RADS Category 1: Negative 3341F PARENCHYMAL PATTERN: (D) - The breast(s) demonstrate(s) heterogeneously dense fibroglandular carmella graham. BI-RADS CATEGORY: (1) - 1 RECOMMENDATION: (ANNUAL) - Recommend routine annual screening mammography. [id number] 1 year screening LATERALITY: (B)
== END 2021-08-05 13:07 | disposition home or self-care (01) ==
LOC: DI.N 13:06
DX: Z12.31 Encounter for screening mammogram for malignant neoplasm of breast (principal)

== ENCOUNTER 2022-01-10 14:53 | Emergency (ER) | payer OTHER ==
[2022-01-10] MEDS ORDERED: KETOROLAC 15 MG/ML VIAL IVP STA (15:16)
[2022-01-10] MEDS ORDERED: SODIUM CHLORIDE 0.9% 1,000 ML IV STA (15:16)
[2022-01-10] MEDS ORDERED: HYDROmorphone 1 MG/ML CARPUJECT IVP STA (15:19)
--- NOTE | 2022-01-10 15:26 | ED Physician Documentation ---
History of Present Illness - Stated complaint Stated Complaint: C+,CP,ABD PX - Chief complaint Chief Complaint: General - History obtained from History obtained from: Patient - Additonal information Additional information: 46-year-old woman with history of IBS, colectomy, and depression. She presents with active COVID been symptomatic for 6 days (and as such was discussed she is not a candidate for antivirals at this point.). It started with prominent URI symptoms, cough hoarse throat and runny nose. Over the last couple of days has developed more abdominal cramps and some substernal nonradiating chest pain and trouble breathing. No fevers or chills. Cough is nonproductive. Review of Systems Ten Systems: 10 systems reviewed and negative Constitutional: reports: Myalgias, Fatigue Nose: reports: Rhinorrhea / runny nose, Congestion Throat: reports: Sore throat Respiratory: reports: Cough. denies: Dyspnea GI: reports: Abdominal Pain. 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 : None HEENT: Other Psych: Depression, Anxiety, Post traumatic stress disorder Musculoskeletal: None Derm: None - Past Surgical History Past Surgical History: Yes General: Bowel surgery, EGD Ortho: Other HEENT: Tonsil/Adenoidectomy - Present Medications Home Medications: Ambulatory Orders Medication Instructions Recorded Confirmed Dextroamphetamine/Amphetamine 10 mg PO BID 01/10/22 01/10/22 [Adderall 10 mg Tablet] Hyoscyamine [Levsin] 1 tab PO DAILY PRN 01/10/22 01/10/22 [place] [[place] Carbonate] 300 mg PO BID 01/10/22 01/10/22 Vilazodone HCl [Viibryd] 20 mg PO BID 01/10/22 01/10/22 diazePAM [Valium] 5 mg PO TID PRN 01/10/22 01/10/22 - Allergies Allergies/Adverse Reactions: Allergies Allergy/AdvReac Type Severity Reaction Status Date / Time meperidine HCl * Allergy Intermediate Respiratory Verified 01/10/22 15:00 [From Demerol] morphine Allergy Intermediate Respiratory Verified 01/10/22 15:00 Sulfa (Sulfonamide Allergy Intermediate Respiratory Verified 01/10/22 15:00 Antibiotics) - Social History Does the pt smoke?: No Smoking Status: Never smoker Does the pt drink ETOH?: No Does the pt have substance abuse?: No - Immunizations Immunizations are current?: Yes - POLST Patient has POLST: No PD ED PE NORMAL - Vitals Vital signs reviewed: Yes - General General: Alert and oriented X 3, No acute distress - Neck Neck: Supple, no meningeal sign, No bony TTP - Cardiac Cardiac: RRR, No murmur - Respiratory Respiratory: No respiratory distress, Clear bilaterally - Abdomen Abdomen: Normal bowel sounds, Soft, Non tender - Back Back: No CVA TTP, No spinal TTP - Derm Derm: Normal color, Warm and dry - Extremities Extremities: No edema, No calf tenderness / cord - Neuro Neuro: Alert and oriented X 3, Normal speech Results - Vitals Vitals: Vital Signs - 24 hr 01/10/22 14:55 Temperature 37.0 C Heart Rate 90 Respiratory 16 Rate Blood Pressure 128/76 O2 Saturation 100 Oxygen O2 Source Room air - EKG (time done) 1533 Rate: Rate (enter#) (75) Rhythm: NSR [place]: Normal Intervals: Normal LA QRS: Normal Ischemia: Non specific changes. No: ST elevation c/w ischemia, ST depression - Labs Labs: Laboratory Tests 01/10/22 01/10/22 01/10/22 15:40 15:40 15:40 WBC 6.9 RBC 4.15 L Hgb 13.0 Hct 40.6 MCV 97.8 MCH 31.3 H MCHC 32.0 RDW 12.9 Plt Count 240 MPV 9.9 Neut # (Auto) 4.4 Lymph # (Auto) 1.5 [place] # (Auto) 0.5 Eos # (Auto) 0.4 Baso # (Auto) 0.1 Absolute Nucleated RBC 0.00 Nucleated RBC % 0.0 Sodium 139 Potassium 3.9 Chloride 105 Carbon Dioxide 25 Anion Gap 9.0 BUN 13 Creatinine 0.6 Estimated GFR (MDRD) 107 Glucose 84 Calcium 9.7 Total Bilirubin 0.4 AST 20 ALT 16 Alkaline Phosphatase 63 Troponin I High Sens Total Protein 7.1 Albumin 4.1 Globulin 3.0 Albumin/Globulin Ratio 1.4 Lipase 52 H [place] 0.52 01/10/22 15:40 WBC RBC Hgb Hct MCV MCH MCHC RDW Plt Count MPV Neut # (Auto) Lymph # (Auto) [place] # (Auto) Eos # (Auto) Baso # (Auto) Absolute Nucleated RBC Nucleated RBC % Sodium Potassium Chloride Carbon Dioxide Anion Gap BUN Creatinine Estimated GFR (MDRD) Glucose Calcium Total Bilirubin AST ALT Alkaline Phosphatase Troponin I High Sens < 2.3 L Total Protein Albumin Globulin Albumin/Globulin Ratio Lipase [place] PD MEDICAL DECISION MAKING - ED course ED course: 46-year-old woman on day 6 of symptomatic COVID presents with chest pain and prominent abdominal cramping feeling much better after Toradol and a Dilaudid here. The remainder of her work-up was negative. She requested a lithium level which was done and slightly subtherapeutic but not concerning per se. She did not want any prescription meds to go home with. Departure - Departure Disposition: 01 Home, Self Care Clinical Impression: COVID-19, Chest pain, Abdominal cramping Condition: Good Record reviewed to determine appropriate education?: Yes Instructions: ED Viral Syndrome Comments: Call your doctor to arrange a follow-up appointment, make the next available appointment. In the interim, return anytime if worse or if new symptoms develop.
[2022-01-10 15:53] LABS: BASOPHILS # (AUTO) 0.1 10^3/uL (0.0-0.1); BASOPHILS % (AUTO) 0.9 %; EOSINOPHILS # (AUTO) 0.4 10^3/uL (0.0-0.7); EOSINOPHILS % (AUTO) 5.5 %; HCT - HEMATOCRIT 40.6 % (37.0-47.0); LYMPHOCYTES # (AUTO) 1.5 10^3/uL (1.5-3.5); LYMPHOCYTES % (AUTO) 22.1 %; MEAN CORPUSCULAR HEMOGLOBIN 31.3 pg (27.0-31.0); MEAN CORPUSCULAR VOLUME 97.8 fL (81.0-99.0); MEAN PLATELET VOLUME 9.9 fL (7.9-10.8); MONOCYTES # (AUTO) 0.5 10^3/uL (0.0-1.0); MONOCYTES % (AUTO) 7.5 %; NEUTROPHILS # (AUTO) 4.4 10^3/uL (1.5-6.6); NEUTROPHILS % (AUTO) 63.9 %; PLT - PLATELET COUNT 240 10^3/uL (130-450); RED BLOOD COUNT 4.15 10^6/uL (4.20-5.40); RED CELL DISTRIBUTION WIDTH 12.9 % (12.0-15.0); WHITE BLOOD COUNT 6.9 x10^3/uL (4.8-10.8)
[2022-01-10 16:16] LABS: ALBUMIN 4.1 g/dL (3.2-5.5); ALBUMIN/GLOBULIN RATIO 1.4 (1.0-2.2); BILIRUBIN,TOTAL 0.4 mg/dL (0.2-1.0); CALCIUM 9.7 mg/dL (8.5-10.3); CREATININE 0.6 mg/dL (0.4-1.0); POTASSIUM 3.9 mmol/L (3.5-5.0); TOTAL PROTEIN 7.1 g/dL (6.7-8.2)
[2022-01-10 16:27] LABS: LITHIUM 0.52 mmol/L
[2022-01-10 16:53] VITALS: BP 125/78
--- NOTE | 2022-01-10 17:18 | XRAY Report ---
PROCEDURE: Chest 1 View X-Ray INDICATIONS: chest pain TECHNIQUE: One view of the chest was acquired. COMPARISON: 11/12/2020 and 01/11/2019. FINDINGS: Surgical changes and devices: None. Lungs and pleura: No pleural effusions or pneumothorax. Lungs are clear. Mediastinum: Mediastinal contours appear normal. Heart size is normal. Bones and chest wall: No suspicious bony lesions. Overlying soft tissues appear unremarkable. IMPRESSION: No acute cardiopulmonary disease process. Reviewed by: Kari Rao MD, PhD on 01/10/2022 5:17 PM PDT Approved by: Kari Rao MD, PhD on 01/10/2022 5:17 PM PDT Station ID: [id number]
== END 2022-01-10 16:52 | disposition home or self-care (01) ==
LOC: ED 14:53
DX: U07.1 COVID-19 (principal); R07.89 Other chest pain; R10.9 Unspecified abdominal pain
CPT/HCPCS: 36415; 71045; 80053; 80178; 83690; 84484; 85025; 93005; 96361; 96374; 99284; J1170

== ENCOUNTER 2022-06-16 02:55 | Emergency (ER) | payer OTHER ==
[2022-06-16] MEDS ORDERED: HYDROmorphone 1 MG/ML CARPUJECT IVP STA ×2 (03:24→06:35)
[2022-06-16] MEDS ORDERED: SODIUM CHLORIDE 0.9% 1,000 ML IV STA (03:24)
[2022-06-16] MEDS ORDERED: ONDANSETRON 4 MG/2 ML VIAL IVP STA (03:24)
--- NOTE | 2022-06-16 03:28 | ED Physician Documentation ---
History of Present Illness - Stated complaint Stated Complaint: N/V/D - Chief complaint Chief Complaint: Abd Pain - History obtained from History obtained from: Patient - Additonal information Additional information: The patient comes to the emergency department with chief complaint of lower abdominal pain, nausea, and vomiting that has been going on all day today. The patient states that she had been feeling well this morning, but that her symptoms finally escalated this evening. She states that she has had waves of pain in her lower abdomen and she is concerned because she has a history of pa rtial colectomy, due to a hanging colon. She states that she normally gets some episodes of pain and takes hyoscyamine or for this, but that this pain is worse than usual. No blood in her stool or vomit. No fevers but patient has had chills. No other complaints at this time. No sick contacts with similar symptoms. Review of Systems Ten Systems: 10 systems reviewed and negative Constitutional: reports: Reviewed and negative Eyes: reports: Reviewed and negative Ears: reports: Reviewed and negative Nose: reports: Reviewed and negative Throat: reports: Reviewed and negative Cardiac: reports: Reviewed and negative Respiratory: reports: Reviewed and negative GI: reports: Abdominal Pain, Nausea, Vomiting : reports: Reviewed and negative Skin: reports: Reviewed and negative Musculoskeletal: reports: Reviewed and negative Neurologic: reports: Reviewed and negative Psychiatric: reports: Reviewed and negative Endocrine: reports: Reviewed and negative Immunocompromised: reports: Reviewed and negative PD PAST MEDICAL HISTORY - Past Medical History Cardiovascular: None Respiratory: None Neuro: None Endocrine/Autoimmune: None GI: Other (Cecal volvulus) 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 : None HEENT: Other Psych: Depression, Anxiety, Post traumatic stress disorder Musculoskeletal: None Derm: None - Past Surgical History Past Surgical History: Yes General: Bowel surgery, EGD Ortho: Other HEENT: Tonsil/Adenoidectomy - Present Medications Home Medications: Ambulatory Orders Medication Instructions Recorded Confirmed Dextroamphetamine/Amphetamine 10 mg PO BID 01/10/22 01/10/22 [Adderall 10 mg Tablet] Hyoscyamine [Levsin] 1 tab PO DAILY PRN 01/10/22 01/10/22 [place] [[place] Carbonate] 300 mg PO BID 01/10/22 01/10/22 Vilazodone HCl [Viibryd] 20 mg PO BID 01/10/22 01/10/22 diazePAM [Valium] 5 mg PO TID PRN 01/10/22 01/10/22 Ondansetron Odt [Zofran] 4 mg TL Q6H PRN #10 tablet 06/16/22 - Allergies Allergies/Adverse Reactions: Allergies Allergy/AdvReac Type Severity Reaction Status Date / Time meperidine HCl * Allergy Intermediate Respiratory Verified 06/16/22 03:07 [From Demerol] morphine Allergy Intermediate Respiratory Verified 06/16/22 03:07 Sulfa (Sulfonamide Allergy Intermediate Respiratory Verified 06/16/22 03:07 Antibiotics) - Social History Does the pt smoke?: No Smoking Status: Never smoker Does the pt drink ETOH?: No Does the pt have substance abuse?: No - Immunizations Immunizations are current?: Yes - POLST Patient has POLST: No PD ED PE NORMAL - Vitals Vital signs reviewed: Yes - General General: Alert and oriented X 3, Well developed/nourished, Other (The patient is not in distress, but does appear uncomfortable.) - HEENT HEENT: Atraumatic, PERRL, EOMI, Moist mucous membranes - Neck Neck: Supple, no meningeal sign - Cardiac Cardiac: RRR, No murmur, Strong equal pulses - Respiratory Respiratory: No respiratory distress, Clear bilaterally - Abdomen Abdomen: Soft, Non distended, Other (Moderate tenderness across low abdomen, no rebound or guarding.) - Derm Derm: Normal color, Warm and dry, No rash - Extremities Extremities: No deformity, No edema - Neuro Neuro: Alert and oriented X 3, Other (Grossly intact) - Psych Psych: Normal mood, Normal affect Results - Vitals Vitals: Vital Signs - 24 hr 06/16/22 06/16/22 06/16/22 03:04 05:07 06:00 Temperature 36 C L Heart Rate 86 78 83 Respiratory 18 18 18 Rate Blood Pressure 109/69 105/65 107/68 O2 Saturation 100 100 100 Oxygen O2 Source Room air - Labs Labs: Laboratory Tests 06/16/22 06/16/22 06/16/22 03:30 03:30 04:07 WBC 11.2 H RBC 3.68 L Hgb 11.5 L Hct 36.8 L MCV 100.0 H MCH 31.3 H MCHC 31.3 L RDW 13.7 Plt Count 235 MPV 10.1 Neut # (Auto) 8.7 H Lymph # (Auto) 1.4 L [place] # (Auto) 0.7 Eos # (Auto) 0.3 Baso # (Auto) 0.1 Absolute Nucleated RBC 0.00 Nucleated RBC % 0.0 Sodium 137 Potassium 3.4 L Chloride 107 Carbon Dioxide 24 Anion Gap 6.0 BUN 15 Creatinine 0.6 Estimated GFR (MDRD) 107 Glucose 119 H Calcium 8.2 L Total Bilirubin 0.6 AST 16 ALT 11 Alkaline Phosphatase 51 Total Protein 5.8 L Albumin 3.4 Globulin 2.4 Albumin/Globulin Ratio 1.4 Lipase 32 Nasal Adenovirus (PCR) NOT DETECTED Nasal B. parapertussis DNA (PCR) NOT DETECTED Nasal Coronavir 229E PCR NOT DETECTED Nasal Coronavir HKU1 PCR NOT DETECTED Nasal Coronavir NL63 PCR NOT DETECTED Nasal Coronavir OC43 PCR NOT DETECTED Nasal Enterovir/Rhinovir PCR NOT DETECTED Nasal Influenza B PCR NOT DETECTED Nasal Influenza A PCR NOT DETECTED Nasal Parainfluen 1 PCR NOT DETECTED Nasal Parainfluen 2 PCR NOT DETECTED Nasal Parainfluen 3 PCR NOT DETECTED Nasal Parainfluen 4 PCR NOT DETECTED Nasal RSV (PCR) NOT DETECTED Nasal B.pertussis DNA PCR NOT DETECTED Nasal C.pneumoniae (PCR) NOT DETECTED Ming Human Metapneumo PCR NOT DETECTED Nasal M.pneumoniae (PCR) NOT DETECTED Nasal SARS-CoV-2 (PCR) NOT DETECTED - Rads (name of study) CT abd/pelvis Radiology: Final report received, EMP read indepedently, See rad report (minor ascites, no obstruction) PD MEDICAL DECISION MAKING - ED course Complexity details: reviewed results, re-evaluated patient, considered differential, d/w patient ED course: The patient was treated symptomatically with IV fluids, Zofran, and Dilaudid, which she stated she could take despite allergies to Demerol and morphine. She was worked up with laboratory studies and ultimately, CT scan of the abdomen and pelvis. Work-up showed a very mild white blood cell count elevation and minor ascites without any other acute abnormalities of the abdomen and pelvis. The patient's surgical anatomy was intact. I discussed with the patient, who was feeling better after 2 doses of Dilaudid, that her work-up has been largely unremarkable. I suspect she probably has a viral gastroenteritis that is just affecting her worse than it would other people because of her complicated abdominal surgical history. We have discussed symptomatic management at home and I have given her prescription for Zofran. We have discussed the usual ind ications for return. Departure - Departure Disposition: 01 Home, Self Care Clinical Impression: Vomiting Qualifiers: Vomiting type: bilious vomiting Nausea presence: with nausea Qualified Code(s): R11.14 - Bilious vomiting Abdominal pain Qualifiers: Abdominal location: lower abdomen, unspecified Qualified Code(s): R10.30 - Lower abdominal pain, unspecified Condition: Stable Instructions: ED Abdominal Pain Female Non-Specific Abdominal Pain, ED Nausea Vomiting Prescriptions: Ondansetron Odt [Zofran] 4 mg TL Q6H PRN #10 tablet PRN Reason: Nausea / Vomiting Comments: Your laboratory studies showed a mild elevation of your white blood cell count but otherwise, look pretty good. Your CT scan showed a very minor amount of ascites within your abdomen but no other findings of concern. Most likely, you have one of the many viruses that go around and cause vomiting and diarrhea. Please take the Zofran which has been prescribed, as needed for nausea. The prescription for this has been electronically transmitted to [facility] in [place]. You have been given sedating pain medication here in the emergency department and should not drive for the next 6 hours. Please follow-up with your primary doctor as needed. Discharge Date/Time: 06/16/22 07:00
[2022-06-16 03:52] LABS: BASOPHILS # (AUTO) 0.1 10^3/uL (0.0-0.1); BASOPHILS % (AUTO) 0.4 %; EOSINOPHILS # (AUTO) 0.3 10^3/uL (0.0-0.7); HCT - HEMATOCRIT 36.8 % (37.0-47.0); HGB - HEMOGLOBIN 11.5 g/dL (12.0-16.0); LYMPHOCYTES # (AUTO) 1.4 10^3/uL (1.5-3.5); LYMPHOCYTES % (AUTO) 12.7 %; MEAN CORPUSCULAR HEMOGLOBIN 31.3 pg (27.0-31.0); MEAN CORPUSCULAR HGB CONC 31.3 g/dL (32.0-36.0); MEAN PLATELET VOLUME 10.1 fL (7.9-10.8); MONOCYTES # (AUTO) 0.7 10^3/uL (0.0-1.0); MONOCYTES % (AUTO) 5.8 %; NEUTROPHILS # (AUTO) 8.7 10^3/uL (1.5-6.6); NEUTROPHILS % (AUTO) 77.9 %; PLT - PLATELET COUNT 235 10^3/uL (130-450); RED BLOOD COUNT 3.68 10^6/uL (4.20-5.40); RED CELL DISTRIBUTION WIDTH 13.7 % (12.0-15.0); WHITE BLOOD COUNT 11.2 x10^3/uL (4.8-10.8)
[2022-06-16 04:28] LABS: ALBUMIN 3.4 g/dL (3.2-5.5); ALBUMIN/GLOBULIN RATIO 1.4 (1.0-2.2); BILIRUBIN,TOTAL 0.6 mg/dL (0.2-1.0); CALCIUM 8.2 mg/dL (8.5-10.3); CREATININE 0.6 mg/dL (0.4-1.0); POTASSIUM 3.4 mmol/L (3.5-5.0); TOTAL PROTEIN 5.8 g/dL (6.7-8.2)
[2022-06-16 04:41] LABS: B. PARAPERTUSSIS- RESP PCR PAN NOT DETECTED; B. PERTUSSIS- RESP PCR PANEL NOT DETECTED; C. PNEUMONIAE- RESP PCR PANEL NOT DETECTED; CORONAVIRUS 229E-RESP PCR NOT DETECTED; CORONAVIRUS HKU1-RESP PCR NOT DETECTED; CORONAVIRUS NL63-RESP PCR NOT DETECTED; CORONAVIRUS OC43-RESP PCR NOT DETECTED; HUMAN METAPNEUMOVIRUS NOT DETECTED; INFLUENZA A- RESP PCR PANEL NOT DETECTED; INFLUENZA B - RESP PCR PANEL NOT DETECTED; M. PNEUMONIAE- RESP PCR PANEL NOT DETECTED; PARAINFLUENZA VIRUS 1 NOT DETECTED; PARAINFLUENZA VIRUS 2 NOT DETECTED; PARAINFLUENZA VIRUS 3 NOT DETECTED; PARAINFLUENZA VIRUS 4 NOT DETECTED; RHINOVIRUS/ENTEROVIRUS NOT DETECTED; RSV- RESP PCR PANEL NOT DETECTED; SARS-CoV-2 -RESP PCR PANEL NOT DETECTED
[2022-06-16] MEDS ORDERED: iohexoL-300 100 ML VIAL ONE (05:04)
[2022-06-16] MEDS ORDERED: iohexoL-300 100 ML VIAL IVP ONE (05:47)
[2022-06-16 06:43] VITALS: BP 107/68
--- NOTE | 2022-06-16 08:36 | CT Report ---
PROCEDURE: ABDOMEN/PELVIS W INDICATIONS: low abd pain/vom, h/o colectomy CONTRAST: 100 ML OMNI 300 TECHNIQUE: After the administration of IV contrast, 5 mm thick sections acquired from the diaphragms to the symp hysis. 5 mm thick coronal and sagittal reformats were acquired. For radiation dose reduction, the f ollowing was used: automated exposure control, adjustment of mA and/or kV according to patient size. COMPARISON: Ultrasound abdomen 12/11/2020, CT abdomen pelvis 12/11/2020 FINDINGS: Image quality: Excellent. ABDOMEN: Lung bases: Lung bases are clear. Heart size is normal. Solid organs: Liver is enlarged measuring 20.1 cm. Spleen is normal in size and enhancement. Gallbl adder is unremarkable Biliary system is non dilated. Pancreas enhances normally. No adrenal nodule s. Kidneys demonstrate normal size and enhancement, without hydronephrosis. Peritoneum and bowel: Bowel loops demonstrate normal wall thickness and caliber. No free fluid or a ir. Surgical changes reflecting partial colectomy are noted. Nodes and vessels: No retroperitoneal or mesenteric adenopathy by size criteria. Aorta and inferior vena cava are normal in size. Miscellaneous: No ventral hernias. PELVIS: Genitourinary: Bladder wall thickness is normal. Miscellaneous: No inguinal hernias or adenopathy. Bones: No suspicious bony lesions. No acute vertebral body compression fractures. Slight L3 compre ssion deformity is noted. IMPRESSION: No acute intra-abdominal or pelvic process. The above findings are concordant with preliminary report. Reviewed by: Razia Evans MD on 06/16/2022 8:34 AM PDT Approved by: Razia Evans MD on 06/16/2022 8:34 AM PDT Station ID: [id number]
== END 2022-06-16 07:00 | disposition home or self-care (01) ==
LOC: ED 02:55
DX: R11.14 Bilious vomiting (principal); R10.30 Lower abdominal pain, unspecified; Z20.822 Contact with and (suspected) exposure to COVID-19
CPT/HCPCS: 36415; 74177; 80053; 83690; 85025; 87633; 96361; 96374; 96375; 96376; 99283; 99284; J1170; Q9967

== ENCOUNTER 2022-08-06 08:27 | Outpatient (CLI) | payer OTHER ==
--- NOTE | 2022-08-06 13:31 | Mammography Report ---
BILATERAL DIGITAL SCREENING MAMMOGRAM 3D/2D: 08/06/2022 CLINICAL: Routine screening. Comparison is made to exams dated: 08/05/2021 mammogram, 06/18/2020 mammogram, and 06/29/2019 mammogr am - [facility]. Both breasts are heterogeneously dense, which may obscure small masses (category c / 51-75% glandular tissue). No significant masses, calcifications, or other findings are seen in either breast. There has been no significant interval change. IMPRESSION: NEGATIVE There is no mammographic evidence of malignancy. A 1 year screening mammogram is recommended. Based on the Tyrer Cuzick model (a risk assessment model) the patients lifetime risk is 12.3% and he r 10 year risk is 2.7%. According to the ACR, ACS, and NCCN guidelines, an annual breast MRI exam christian ng with mammogram is recommended if the patients lifetime risk is 20% or greater. This exam was interpreted at Station ID: [id number]. NOTE: For mammograms, a report in lay terms will be sent to the patient. Approximately 15% of breast malignancies will not be visualized mammographically. In the management of a palpable breast mass, a negative mammogram must not discourage biopsy of a clinically suspicious lesion. Electronically Signed By: Serg cruz/izzy:08/06/2022 09:50:19 ACR BI-RADS Category 1: Negative 3341F PARENCHYMAL PATTERN: (D) - The breast(s) demonstrate(s) heterogeneously dense fibroglandular paroliviay ma. BI-RADS CATEGORY: (1) - 1 RECOMMENDATION: (ANNUAL) - Recommend routine annual screening mammography. [id number] 1 year screening LATERALITY: (B)
== END 2022-08-06 08:28 | disposition home or self-care (01) ==
LOC: DI 08:27
DX: Z12.31 Encounter for screening mammogram for malignant neoplasm of breast (principal)

== ENCOUNTER 2023-08-24 12:18 | Emergency (ER) | payer OTHER ==
--- NOTE | 2023-08-24 12:44 | ED Physician Documentation ---
PD HPI CHEST PAIN - Stated complaint Stated Complaint: CP - Chief complaint Chief Complaint: Cardiac - History obtained from History obtained from: Patient - Additional information Additional information: 48-year-old woman with no known history of heart disease. She does have a strong family history on her father side and has hypercholesterolemia. She also takes estrogen supplementation. She was in her usual state of health although feeling dizzy yesterday. Today at 930 this morning while working at her desk she developed substernal chest pressure. Nonradiating but it is associate with some nausea and shortness of breath. She denies pedal edema or calf pain. She took full dose aspirin prior to arrival. 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 : None HEENT: Other Psych: Depression, Anxiety, Post traumatic stress disorder Musculoskeletal: None Derm: None - Past Surgical History Past Surgical History: Yes General: Bowel surgery, EGD Ortho: Other HEENT: Tonsil/Adenoidectomy - Present Medications Home Medications: Ambulatory Orders Medication Instructions Recorded Confirmed Dextroamphetamine/Amphetamine 10 mg PO BID 01/10/22 01/10/22 [Adderall 10 mg Tablet] Hyoscyamine [Levsin] 1 tab PO DAILY PRN 01/10/22 01/10/22 [place] [[place] Carbonate] 300 mg PO BID 01/10/22 01/10/22 Vilazodone HCl [Viibryd] 20 mg PO BID 01/10/22 01/10/22 diazePAM [Valium] 5 mg PO TID PRN 01/10/22 01/10/22 Ondansetron Odt [Zofran] 4 mg TL Q6H PRN #10 tablet 06/16/22 - Allergies Allergies/Adverse Reactions: Allergies Allergy/AdvReac Type Severity Reaction Status Date / Time meperidine HCl * Allergy Intermediate Respiratory Verified 06/16/22 03:07 [From Demerol] morphine Allergy Intermediate Respiratory Verified 06/16/22 03:07 Sulfa (Sulfonamide Allergy Intermediate Respiratory Verified 06/16/22 03:07 Antibiotics) - Social History Does the pt smoke?: No Smoking Status: Never smoker Does the pt drink ETOH?: No Does the pt have substance abuse?: No - Immunizations Immunizations are current?: Yes - POLST Patient has POLST: No PD ED PE NORMAL - Vitals Vital signs reviewed: Yes - General General: Alert and oriented X 3, No acute distress - HEENT HEENT: PERRL, EOMI - Neck Neck: Supple, no meningeal sign, No bony TTP - Cardiac Cardiac: RRR, No murmur - Respiratory Respiratory: No respiratory distress, Clear bilaterally - Abdomen Abdomen: Non tender - Extremities Extremities: No edema, No calf tenderness / cord - Neuro Neuro: Alert and oriented X 3, Normal speech Results - Vitals Vitals: Vital Signs - 24 hr 08/24/23 08/24/23 08/24/23 12:21 13:00 13:30 Temperature 36.7 C Heart Rate 73 76 62 Respiratory 18 14 16 Rate Blood Pressure 112/74 106/66 O2 Saturation 100 99 97 Oxygen O2 Source Room air - EKG (time done) 1231 EKG releavant findings:: EKG personally interpreted by author of this note. Relevant findings are: Rate: Rate (enter#) (74) Rhythm: NSR [place]: Normal Intervals: Normal [place] QRS: Normal Ischemia: Normal ST segments. No: ST elevation c/w ischemia - Labs Labs: Laboratory Tests 08/24/23 08/24/23 08/24/23 12:45 12:45 13:03 WBC 7.1 RBC 4.02 L Hgb 12.7 Hct 40.5 MCV 100.7 H MCH 31.6 H MCHC 31.4 L RDW 13.2 Plt Count 200 MPV 11.3 H Neut # (Auto) 4.8 Lymph # (Auto) 1.7 [place] # (Auto) 0.4 Eos # (Auto) 0.1 Baso # (Auto) 0.1 Absolute Nucleated RBC 0.00 Nucleated RBC % 0.0 D-Dimer Sodium 137 Potassium 4.2 Chloride 106 Carbon Dioxide 24 Anion Gap 7.0 BUN 11 Creatinine 0.6 Estimated GFR (MDRD) 106 Glucose 77 Calcium 8.9 Total Bilirubin 0.5 AST 22 ALT 13 Alkaline Phosphatase 44 Troponin I High Sens 2.3 Total Protein 6.4 Albumin 4.4 Globulin 2.0 L Albumin/Globulin Ratio 2.2 Lipase 93 H Last Dose Date UNK Last Dose Time UNK [place] < 0.10 08/24/23 13:32 WBC RBC Hgb Hct MCV MCH MCHC RDW Plt Count MPV Neut # (Auto) Lymph # (Auto) [place] # (Auto) Eos # (Auto) Baso # (Auto) Absolute Nucleated RBC Nucleated RBC % D-Dimer 211.1 Sodium Potassium Chloride Carbon Dioxide Anion Gap BUN Creatinine Estimated GFR (MDRD) Glucose Calcium Total Bilirubin AST ALT Alkaline Phosphatase Troponin I High Sens Total Protein Albumin Globulin Albumin/Globulin Ratio Lipase Last Dose Date Last Dose Time [place] - Rads (name of study) Single view chest x-ray is unremarkable Relevant Findings:: Final report received, EMP independent interpretation of test PD Medical Decision Making - ED course ED course: CBC showing mild macrocytosis without anemia. CMP notable for mild elevation of lipase which she has had before but not quite to this extent. It is level does not rise to the level that would be required for specific diagnosis of pancreatitis. 48-year-old woman with chest pain. It has been long enough that I think a single high-sensitivity troponin should be predictive. Her D-dimer is also negative, ordered because she is on hormone supplementation. Her pain was mild here and she was not an extremis. She declined any pain medication. For the very mild elevation in lipase I did recommend a clear liquid diet for the rest of the day. She also notes that she has been having somewhat irregular periods after a 5-year hiatus and she is on progesterone and estrogen supplementation, gynecology consult as an outpatient was suggested. Departure - Departure Disposition: 01 Home, Self Care Clinical Impression: Chest pain Qualifiers: Chest pain type: unspecified Qualified Code(s): R07.9 - Chest pain, unspecified Condition: Good Record reviewed to determine appropriate education?: Yes Instructions: ED Chest Pain NonCardiac Comments: As far as the chest pain goes, your cardiac markers, EKG, chest x-ray, and D- dimer were all negative/normal. You did have a very mild elevation in the lipase that is not diagnostic of pancreatitis but perhaps a very mild case? Would do a clear liquid diet for the rest of the day. Otherwise labs showed a macrocytosis, your red blood cells are larger than average. It is not associated with anemia. This is a common condition that generally does not require any treatment. But given your weight loss would consider B12 and folate supplementation as that is a common cause of macrocytosis. Follow-up with ANTONIO Heredia, consideration for upper endoscopy and or stress testing. You also mentioned you are having new periods after a 5-year hiatus wh ile you are on hormones, so gynecology consultation would also be reasonable. Forms: PCP List
--- NOTE | 2023-08-24 13:00 | XRAY Report ---
PROCEDURE: Chest 1V INDICATIONS: Chest Pain TECHNIQUE: One view of the chest was acquired. COMPARISON: Chest x-ray 01/10/2022. FINDINGS: Surgical changes and devices: None. Lungs and pleura: No pleural effusions or pneumothorax. Lungs are clear. Mediastinum: Mediastinal contours appear normal. Heart size is normal. Bones and chest wall: No suspicious bony lesions. Overlying soft tissues appear unremarkable. IMPRESSION: No acute cardiopulmonary process. Reviewed by: Luis Meadows MD on 08/24/2023 12:59 PM PST Approved by: Luis Meadows MD on 08/24/2023 12:59 PM PST Station ID: [id number]
[2023-08-24 13:03] LABS: BASOPHILS # (AUTO) 0.1 10^3/uL (0.0-0.1); BASOPHILS % (AUTO) 0.7 %; EOSINOPHILS # (AUTO) 0.1 10^3/uL (0.0-0.7); EOSINOPHILS % (AUTO) 1.7 %; HCT - HEMATOCRIT 40.5 % (37.0-47.0); HGB - HEMOGLOBIN 12.7 g/dL (12.0-16.0); LYMPHOCYTES # (AUTO) 1.7 10^3/uL (1.5-3.5); MEAN CORPUSCULAR HEMOGLOBIN 31.6 pg (27.0-31.0); MEAN CORPUSCULAR HGB CONC 31.4 g/dL (32.0-36.0); MEAN CORPUSCULAR VOLUME 100.7 fL (81.0-99.0); MEAN PLATELET VOLUME 11.3 fL (7.9-10.8); MONOCYTES # (AUTO) 0.4 10^3/uL (0.0-1.0); MONOCYTES % (AUTO) 6.1 %; NEUTROPHILS # (AUTO) 4.8 10^3/uL (1.5-6.6); NEUTROPHILS % (AUTO) 67.2 %; PLT - PLATELET COUNT 200 10^3/uL (130-450); RED BLOOD COUNT 4.02 10^6/uL (4.20-5.40); RED CELL DISTRIBUTION WIDTH 13.2 % (12.0-15.0); WHITE BLOOD COUNT 7.1 x10^3/uL (4.8-10.8)
[2023-08-24 13:24] LABS: ALBUMIN 4.4 g/dL (3.2-5.5)
[2023-08-24 13:27] LABS: ALBUMIN/GLOBULIN RATIO 2.2 (1.0-2.2); BILIRUBIN,TOTAL 0.5 mg/dL (0.2-1.0); CALCIUM 8.9 mg/dL (8.5-10.3); CREATININE 0.6 mg/dL (0.6-1.3); POTASSIUM 4.2 mmol/L (3.5-4.5); TOTAL PROTEIN 6.4 g/dL (6.4-8.9)
[2023-08-24 13:30] LABS: TROPONIN I HIGH SENSITIVITY 2.3 ng/L (2.3-14.8)
[2023-08-24 13:31] LABS: LITHIUM < 0.10 mmol/L
[2023-08-24 13:59] VITALS: BP 106/66; O2SAT 97
== END 2023-08-24 14:23 | disposition home or self-care (01) ==
LOC: ED 12:18
DX: R07.9 Chest pain, unspecified (principal)
CPT/HCPCS: 36415; 80053; 80178; 83690; 84484; 85025; 85379; 93005; 99283; 99284

== ENCOUNTER 2023-09-08 13:09 | Outpatient (CLI) | payer OTHER ==
--- NOTE | 2023-09-09 11:01 | Mammography Report ---
BILATERAL DIGITAL SCREENING MAMMOGRAM 3D/2D: 09/08/2023 CLINICAL: Routine screening. Comparison is made to exams dated: 08/06/2022 mammogram, 08/05/2021 mammogram, 06/18/2020 mammogram, 06/29/2019 mammogram, 06/28/2018 mammogram, and 05/03/2017 mammogram - [facility]. Both breasts are heterogeneously dense, which may obscure small masses (category c / 51-75% glandular tissue). There is a biopsy clip in the left breast. No significant masses, calcifications, or other findings are seen in either breast. There has been no significant interval change. IMPRESSION: BENIGN There is no mammographic evidence of malignancy. A 1 year screening mammogram is recommended. Based on the Tyrer Cuzick model (a risk assessment model) the patient's lifetime risk is 12.3% and he r 10 year risk is 2.8%. According to the ACR, ACS, and NCCN guidelines, an annual breast MRI exam christian ng with mammogram is recommended if the patients lifetime risk is 20% or greater. This exam was interpreted at Station ID: [id number]. NOTE: For mammograms, a report in lay terms will be sent to the patient. Approximately 15% of breast malignancies will not be visualized mammographically. In the management of a palpable breast mass, a negative mammogram must not discourage biopsy of a clinically suspicious lesion. Electronically Signed By: Keisha Del Cid M.D., PH.D eb/izzy:09/08/2023 23:37:49 letter sent: No_Letter ACR BI-RADS Category 2: Benign Finding(s) 3342F PARENCHYMAL PATTERN: (D) - The breast(s) demonstrate(s) heterogeneously dense fibroglandular carmella graham. BI-RADS CATEGORY: (2) - 2 Mammogram [id number] 1 year screening LATERALITY: (B)
== END 2023-09-08 13:10 | disposition home or self-care (01) ==
LOC: DI.N 13:09
DX: Z12.31 Encounter for screening mammogram for malignant neoplasm of breast (principal); R92.333 Mammographic heterogeneous density, bilateral breasts

== ENCOUNTER 2023-10-11 09:50 | Outpatient (CLI) | payer OTHER ==
--- NOTE | 2023-10-11 18:50 | Ultrasound Report ---
PROCEDURE: Pelvic w/Transvaginal INDICATIONS: POSTMENOPAUSAL VAG BLEED TECHNIQUE: Real-time scanning was performed of the pelvic organs, with image documentation. Additional endovagi nal scanning was necessary due to incomplete visualization of the adnexal and endometrial structures by transabdominal scanning. COMPARISON: None. FINDINGS: Uterus: Uterus is anteverted and normal in size at 6.4 x 3.5 x 4.1 cm. The myometrium is heterogene ous. The endometrium measures 0.4 mm in combined thickness. 2 coarse calcifications are seen within the endometrium Ovaries: The right ovary measures 1.4 x 1.0 x 1.2 cm, with a calculated ovarian volume of 0.84 cc. The left ovary is not visualized. The right ovary has a normal sonographic appearance. Less than 12 follicles can be seen in the right ovary. No adnexal masses are seen. No cystic lesions measuring gr eater than 3 cm. Other: No pathologic free abdominal or pelvic fluid. IMPRESSION: Normal sonographic appearance of the uterus and endometrial thickness. Normal right ovary. Left ovary is not visualized. Reviewed by: Keisha Del Cid MD on 10/11/2023 5:03 PM PST Approved by: Keisha Del Cid MD on 10/11/2023 5:03 PM PST Station ID: [id number]
== END 2023-10-11 09:51 | disposition home or self-care (01) ==
LOC: DI 09:50
PROVIDERS: ATTEND Physician Assistant Medical
DX: N95.0 Postmenopausal bleeding (principal)